=== PATIENT | male | born 1965 | race Caucasian/White ===

== ENCOUNTER 2017-01-30 09:04 | Emergency (ER) | payer BC ==
[2017-01-30] MEDS ORDERED: Norflex 60 MG/2 ML IM ONE (09:21)
[2017-01-30] MEDS ORDERED: TORAdol 30 mg Injection IM ONE (09:21)
[2017-01-30] MEDS ORDERED: Norflex 60 MG/2 ML ONE (09:24)
[2017-01-30] MEDS ORDERED: TORAdol 30 mg Injection ONE (09:24)
--- NOTE | 2017-01-30 09:25 | ERPHSYRPT ---
- History of Present Illness Time Seen by Provider: 01/30/17 09:12 Source: patient, family Physician History: CC: back pain Hx: 51 y/o patient of Dr Berny Bermudez. He has chronic back pain. He used to see Dr Olson and was on medication but he stopped going there recently. He sees a chiropracter. Last week he moved [facility] and had exacerbation of chronic low back pain. No N/T/W. No fever. No abd pain. No hematuria. No urinary complaints. The pain is severe. Not better with tizanidine or chiropracter. Better with lying flat on the floor. Timing/Duration: week(s) (1) Back Pain Location: lumbar spine Severity of Pain-Max: severe Severity of Pain-Current: severe Allergies/Adverse Reactions: sulfamethoxazole [From Bactrim] Allergy (Intermediate, Verified 01/13/17 16:23) Rash trimethoprim [From Bactrim] Allergy (Intermediate, Verified 01/13/17 16:23) Rash Home Medications: Hydrocodone/APAP 10/325 mg [[place] 10/325 MG Tablet] 1 tab PO Q4HPRN PRN [History] Methylphenidate HCl [Ritalin] 10 mg PO BID 11/25/15 [History] Ropinirole HCl [Requip] 1 mg PO DINNER 11/25/15 [History] Aripiprazole 10 mg [Abilify 10 MG] 10 mg PO DAILY 01/13/17 [History] Fenofibrate,Micronized 145 mg* [Tricor 145 MG] 145 mg PO DAILY 01/13/17 [ History] Lamotrigine 100 mg [lamICTAL 100MG TABLET] 100 mg PO BID 01/13/17 [History ] Lisinopril 20 mg [Zestril 20 MG] 20 mg PO BID 01/13/17 [History] Loratadine 10 mg [Claritin 10 mg] 10 mg PO DAILY 01/13/17 [History] Metoprolol Tartrate 25 mg [Lopressor 25MG Tab] 25 mg PO BID 01/13/17 [ History] Prednisone 10 mg [Deltasone 10 mg] 10 mg PO DAILY PRN PRN 01/13/17 [ History] Tamsulosin HCl 0.4 mg [Flomax 0.4 MG] 0.4 mg PO DAILY 01/13/17 [History] Tizanidine HCl 4 mg PO Q6H PRN PRN 01/13/17 [History] Venlafaxine HCl ER 75 mg [Effexor XR 75 MG] 75 mg PO DAILY 01/13/17 [ History] Hx Tetanus, Diphtheria Vaccination/Date Given: Yes Hx Influenza Vaccination/Date Given: No Hx Pneumococcal Vaccination/Date Given: No - Review of Systems Constitutional: No Fever, No Chills Eyes: No Symptoms Ears, Nose, & Throat: No Symptoms Respiratory: No Cough, No Dyspnea Cardiac: No Chest Pain Abdominal/Gastrointestinal: No Abdominal Pain, No Nausea, No Vomiting Genitourinary Symptoms: No Dysuria, No Hematuria Musculoskeletal: Back Pain, Injury (lifting drywall), No Neck Pain Skin: No Rash Neurological: No Focal Weakness, No Headache, No Parasthesia All Other Systems: Reviewed and Negative - Past Medical History Pertinent Past Medical History: Yes Neurological History: No Pertinent History ENT History: No Pertinent History Cardiac History: High Cholesterol, Hypertension Respiratory History: No Pertinent History Endocrine Medical History: No Pertinent History Musculoskeletal History: Arthritis GI Medical History: Irritable Bowel History: No Pertinent History Psycho-Social History: No Pertinent History Male Reproductive Disorders: No Pertinent History Other Medical History: AMPUTATION OF LEFT FINGERS, C5 fx with C4,5,6 bone graph. - Past Surgical History Past Surgical History: Yes Neuro Surgical History: No Pertinent History Cardiac: No Pertinent History Respiratory: No Pertinent History Gastrointestinal: Cholecystectomy, Hernia Repair Genitourinary: No Pertinent History Musculoskeletal: Amputation, Orthopedic Surgery Male Surgical History: No Pertinent History Other Surgical History: neck surgery 1985 and 2000 C 4,5,6 bone graph, T1 bone shaving. Left finger amputation with mulitple skin graphs from left thigh to hand. - Social History Smoking Status: Never smoker Exposure to second hand smoke: No Drug Use: none Patient Lives Alone: No - Nursing Vital Signs Nursing Vital Signs: Pain Scale Pain Intensity 10 - Physical Exam General Appearance: alert Eye Exam: PERRL/EOMI Ears, Nose, Throat Exam: normal ENT inspection, moist mucous membranes Neck Exam: normal inspection, non-tender, supple Respiratory Exam: normal breath sounds, lungs clear Cardiovascular Exam: regular rate/rhythm Gastrointestinal Exam: soft, No tenderness, No distention, No mass, No guarding Male Genetalia Exam: normal genitalia Back Exam: normal inspection, No vertebral tenderness Extremity Exam: normal inspection, normal range of motion Neurologic Exam: alert, oriented x 3, cooperative, cafeteria supervisor II-XII nml as tested, sensation nml, No motor deficits Skin Exam: warm, dry, No rash - Course Nursing assessment & vital signs reviewed: Yes Ordered Tests: Medication Summary Discontinued Medications Generic Name Dose Route Start Last Admin Trade Name Daniel PRN Reason Stop Dose Admin Ketorolac Tromethamine 60 mg 01/30/17 09:21 01/30/17 09:27 Toradol 30 Mg Injection IM 01/30/17 09:22 60 mg STAT ONE Administration Ketorolac Tromethamine Confirm 01/30/17 09:24 Toradol 30 Mg Injection Administered 01/30/17 09:25 Dose 60 mg .ROUTE .STK-MED ONE Orphenadrine Citrate 60 mg 01/30/17 09:21 01/30/17 09:27 Norflex 60 Mg/2 Ml IM 01/30/17 09:22 60 mg STAT ONE Administration Orphenadrine Citrate Confirm 01/30/17 09:24 Norflex 60 Mg/2 Ml Administered 01/30/17 09:25 Dose 60 mg .ROUTE .STK-MED ONE - Progress Progress Note: 01/30/17 09:25 Explained plan. Will give toradol and norflex. Advised he see dR Bermudez to discuss plan for chronic pain. 01/30/17 09:40 Pt was given meds. came out and she made appt to see Dr Bermudez in 10 minutes and pt is ready to go. Will release. Counseled pt/family regarding: diagnosis, need for follow-up - Departure Time of Disposition: 09:40 Departure Disposition: Home Clinical Impression: Acute exacerbation of chronic low back pain Condition: Stable Critical Care Time: No Referrals: ABBY BERMUDEZ [Primary Care Provider] - Instructions: Low Back Pain Additional Instructions: BACK INJURY 1. May apply moist heat frequently for relief of pain. Take care not to burn the skin. Do not use heat for more than 30 minutes at a time. 2. Try to sleep on a firm bed, flat on your back. 3. If no improvement is noticed in 2-3 days, follow up with your family physician. 4. If you notice any numbness, tingling, weakness, or problems with your bowel or bladder, you should call your family physician or return to the emergency department. No driving today. Go directly to Dr Bermudez office.
[2017-01-30 09:48] VITALS: BP 141/83; PULSE 86; O2SAT 97
== END 2017-01-30 09:52 | disposition home or self-care (01) ==
LOC: ED 09:04
DX: M54.5 Low back pain (principal); G89.29 Other chronic pain; Z79.891 Long term (current) use of opiate analgesic; Z79.899 Other long term (current) drug therapy; E78.00 Pure hypercholesterolemia, unspecified; I10 Essential (primary) hypertension
CPT/HCPCS: 96372; 99284; J1885; J2360

== ENCOUNTER 2020-06-08 11:51 | Emergency (ER) | payer BC ==
[2020-06-08] MEDS ORDERED: Sodium Chloride 0.9% 1000 ML 1,000 ML IV STA (11:59)
[2020-06-08] MEDS ORDERED: TORAdol 30 mg Injection IV ONE (12:00)
[2020-06-08] MEDS ORDERED: Sodium Chloride 0.9% 1000 ML 1,000 ML ONE (12:01)
[2020-06-08] MEDS ORDERED: TORAdol 30 mg Injection ONE (12:01)
[2020-06-08 12:03] VITALS: O2SAT 95
[2020-06-08] MEDS ORDERED: Zofran 4 MG/2 ML VIAL ONE (12:33)
[2020-06-08] MEDS ORDERED: Hydromorphone 1 mg/ml Injection IV ONE ×3 (12:33→13:40)
[2020-06-08] MEDS ORDERED: Hydromorphone 1 mg/ml Injection ONE ×3 (12:34→13:35)
[2020-06-08] MEDS ORDERED: Zofran 4 MG/2 ML VIAL IV ONE (12:34)
--- NOTE | 2020-06-08 12:42 | XRAY ---
Indication: Pain following injury. Comparison: None 2 view right forearm demonstrates mid radius shaft fracture with bayonet apposition/alignment, nondisplaced comminuted distal radial shaft fracture, and comminuted displaced ulnar shaft fracture with soft tissue swelling. Elsewhere moderate/advanced wrist degenerative changes and widened scapholunate interval.
[2020-06-08 13:21] VITALS: BP 145/92; PULSE 85
--- NOTE | 2020-06-08 13:44 | ERPHSYRPT ---
- History of Present Illness Source: patient Exam Limitations: no limitations Patient Subjective Stated Complaint: right arm injury Triage Nursing Assessment: Patient brought back to ED via w/c and transferred to bed with assist of 1. Patient A+O X 3. Patien'ts skin pale, diaphorectic. Patient states he was standing on the ground cutting a tree when a limb fell down and hit his right arm. Patient has deformity noted to right lower arm. Patient complains of constant sharp pain 10/10. Physician History: 54 yo wm w tree limb vs R forearm. Pt has an obvious deformity and pain is a 10. Upon arrival, he has good distal capillary return/sensation, and radial pulse. He denies other injuries, including LOC/head trauma. Occurred: just prior to arrival Method of Injury: direct blow (Tree limb vs R forearm) Quality: constant Severity of Pain-Max: severe Severity of Pain-Current: severe Extremities Pain Location: forearm: right Modifying Factors: Improves With: movement Associated Symptoms: none Allergies/Adverse Reactions: sulfamethoxazole [From Bactrim] Allergy (Intermediate, Verified 06/08/20 15:21) Rash trimethoprim [From Bactrim] Allergy (Intermediate, Verified 06/08/20 15:21) Rash Home Medications: Hydrocodone/APAP 10/325 mg [[place] 10/325 MG TableT] 1 tab PO Q4HPRN PRN 11/25/15 [History] Methylphenidate HCl [Ritalin] 10 mg PO BID 11/25/15 [History] Ropinirole HCl [Requip] 1 mg PO DINNER 11/25/15 [History] Aripiprazole 10 mg [Abilify 10 MG] 10 mg PO DAILY 01/13/17 [History] Fenofibrate,Micronized 145 mg* [Tricor 145 MG] 145 mg PO DAILY 01/13/17 [History] Lamotrigine 100 mg [lamICTAL 100MG TABLET] 100 mg PO BID 01/13/17 [History] Lisinopril 20 mg [Zestril 20 MG] 20 mg PO BID 01/13/17 [History] Loratadine 10 mg [Claritin 10 mg] 10 mg PO DAILY 01/13/17 [History] Metoprolol Tartrate 25 mg [Lopressor 25MG Tab] 25 mg PO BID 01/13/17 [History] Prednisone 10 mg [Deltasone 10 mg] 10 mg PO DAILY PRN PRN 01/13/17 [History] Tamsulosin HCl 0.4 mg [Flomax 0.4 MG] 0.4 mg PO DAILY 01/13/17 [History] Tizanidine HCl 4 mg PO Q6H PRN PRN 01/13/17 [History] Venlafaxine HCl ER 75 mg [Effexor XR 75 MG] 75 mg PO DAILY 01/13/17 [History] Hx Influenza Vaccination/Date Given: No Hx Pneumococcal Vaccination/Date Given: No Immunizations Up to Date: Yes Travel Risk - International Travel Have you traveled outside of the country in past 3 weeks: No - Coronavirus Screening Are you exhibiting any of the following symptoms?: No Close contact with a COVID-19 positive Pt in past 14-21 Days: No - Review of Systems Constitutional: No Symptoms Eyes: No Symptoms Ears, Nose, & Throat: No Symptoms Respiratory: No Symptoms Cardiac: No Symptoms Abdominal/Gastrointestinal: No Symptoms Genitourinary Symptoms: No Symptoms Musculoskeletal: Injury Neurological: No Symptoms Psychological: No Symptoms, Hallucinations Endocrine: No Symptoms Hematologic/Lymphatic: No Symptoms Immunological/Allergic: No Symptoms - Past Medical History Neurological History: No Pertinent History ENT History: No Pertinent History Cardiac History: High Cholesterol, Hypertension Respiratory History: No Pertinent History Endocrine Medical History: No Pertinent History Musculoskeletal History: No Pertinent History GI Medical History: No Pertinent History History: No Pertinent History Psycho-Social History: No Pertinent History Male Reproductive Disorders: No Pertinent History - Past Surgical History Past Surgical History: Yes Neuro Surgical History: No Pertinent History Cardiac: No Pertinent History Respiratory: No Pertinent History Gastrointestinal: No Pertinent History Genitourinary: No Pertinent History Musculoskeletal: No Pertinent History Male Surgical History: No Pertinent History - Social History Smoking Status: Never smoker Exposure to second hand smoke: No Drug Use: none Patient Lives Alone: No Significant Family History: no pertinent family hx - Nursing Vital Signs Nursing Vital Signs: Initial Vital Signs Temperature 98.0 F 06/08/20 11:54 Pulse Rate 58 L 06/08/20 11:54 Respiratory Rate 18 06/08/20 11:54 Blood Pressure 103/81 06/08/20 11:54 O2 Sat by Pulse Oximetry 95 06/08/20 11:54 Pain Scale Pain Intensity 0 - Physical Exam General Appearance: no apparent distress (Pt in pain) Eyes, Ears, Nose, Throat Exam: normal ENT inspection, TMs normal, pharynx normal, moist mucous membranes Neck Exam: normal inspection (C-spine nttp) Cardiovascular/Respiratory Exam: chest non-tender, normal breath sounds, regular rate/rhythm, heart sounds normal Abdominal Exam: non-tender, soft, no organomegaly, No tenderness Back Exam: normal inspection (No T or L-spine pain) Shoulder Exam: normal inspection Elbow/Forearm Exam: deformity (R forearm deformity/edema/Marked TTP/Good radial pulse, distal sensation, and capillary return) Hand Exam: normal inspection Neuro/Tendon Exam: normal sensation, normal motor functions, normal tendon functions, responds to pain, no evidence tendon injury Mental Status Exam: alert, oriented x 3, cooperative Skin Exam: normal color SpO2 Interpretation: normal SpO2: 95 O2 Delivery: Room Air - Course EKG Interpreted by Me: RATE (NSR/R91/Normal QT-QTc/No acute changes) - Radiology Exams Forearm X-ray Interpretation: Interpreted by me (Comminuted mid-shaft radius-ulnar fx), Discussed w/ radiologist Ordered Tests: Active Orders 24 hr Category Date Time Status EKG-ER Only STAT Care 06/08/20 11:57 Completed WRIST (2 VIEW) Stat Exams 06/08/20 12:26 Completed Medication Summary Discontinued Medications Generic Name Dose Route Start Last Admin Trade Name Daniel PRN Reason Stop Dose Admin Hydromorphone HCl 1 mg 06/08/20 12:33 06/08/20 12:35 Hydromorphone 1 Mg/Ml Injection IV 06/08/20 12:34 1 mg STAT ONE Administration Hydromorphone HCl Confirm 06/08/20 12:34 Hydromorphone 1 Mg/Ml Injection Administered 06/08/20 12:35 Dose 1 mg .ROUTE .STK-MED ONE Hydromorphone HCl 1 mg 06/08/20 12:57 06/08/20 13:02 Hydromorphone 1 Mg/Ml Injection IV 06/08/20 12:58 1 mg STAT ONE Administration Hydromorphone HCl Confirm 06/08/20 13:00 Hydromorphone 1 Mg/Ml Injection Administered 06/08/20 13:01 Dose 1 mg .ROUTE .STK-MED ONE Hydromorphone HCl Confirm 06/08/20 13:35 Hydromorphone 1 Mg/Ml Injection Administered 06/08/20 13:36 Dose 1 mg .ROUTE .STK-MED ONE Hydromorphone HCl 1 mg 06/08/20 13:40 06/08/20 13:46 Hydromorphone 1 Mg/Ml Injection IV 06/08/20 13:41 1 mg STAT ONE Administration Sodium Chloride 1,000 mls @ 999 mls/hr 06/08/20 11:59 06/08/20 13:11 Sodium Chloride 0.9% 1000 Ml IV 06/08/20 12:59 Infused .Q1H1M STA Infusion Sodium Chloride Confirm 06/08/20 12:01 Sodium Chloride 0.9% 1000 Ml Administered 06/08/20 12:02 Dose 1,000 mls @ ud .ROUTE .STK-MED ONE Ketorolac Tromethamine 30 mg 06/08/20 12:00 06/08/20 12:03 Toradol 30 Mg Injection IV 06/08/20 12:01 30 mg STAT ONE Administration Ketorolac Tromethamine Confirm 06/08/20 12:01 Toradol 30 Mg Injection Administered 06/08/20 12:02 Dose 30 mg .ROUTE .STK-MED ONE Ondansetron HCl 4 mg 06/08/20 12:34 06/08/20 12:35 Zofran 4 Mg/2 Ml Vial IV 06/08/20 12:35 4 mg STAT ONE Administration Ondansetron HCl Confirm 06/08/20 12:33 Zofran 4 Mg/2 Ml Vial Administered 06/08/20 12:34 Dose 4 mg .ROUTE .STK-MED ONE - Progress Progress: improved Progress Note: 06/08/20 14:06 1L NS bolus 30mg IV Toradol Img IV Dilaudid x3 R forearm splinted per physician w ventral orthoglass splint/NVI post splint Spoke w Dr. Najera, want to see pt 8:00AM at [facility] 06/09/20, NPO after midnight Counseled pt/family regarding: need for follow-up, rad results - Departure Departure Disposition: Home Clinical Impression: Radius and ulna distal fracture Condition: Stable Critical Care Time: No Referrals: AMA MORAN [Primary Care Provider] - Instructions: Fracture (DC) Additional Instructions: Dr. Najera 8:00AM 06/09/20, nothing to eat-drink after midnight Prescriptions: Hydrocodone/Acetaminophen [Hydrocodone-Acetamin 10-325 mg^^^] 1 each PO Q4HPRN PRN #10 tablet MDD 4 tabs PRN Reason: Pain
== END 2020-06-08 14:28 | disposition home or self-care (01) ==
LOC: ED 11:51 → MERGE 11:51 → ED 14:28
DX: S52.601A Unspecified fracture of lower end of right ulna, initial encounter for closed fracture (principal); W20.8XXA Other cause of strike by thrown, projected or falling object, initial encounter; Y93.89 Activity, other specified; Y92.9 Unspecified place or not applicable; M79.601 Pain in right arm; Z79.899 Other long term (current) drug therapy
CPT/HCPCS: 73100; 93005; 96374; 96375; 96376; 99284; J1170; J1885; J2405

== ENCOUNTER 2021-03-04 18:06 | Observation (INO) | payer BC ==
--- NOTE | 2021-03-04 18:11 | ERPHSYRPT ---
- History of Present Illness Source: patient Timing/Duration: day(s) (5) Fever Severity: moderate Associated Symptoms: cough, muscle aches, weakness Hx Tetanus, Diphtheria Vaccination/Date Given: Yes Hx Influenza Vaccination/Date Given: No Hx Pneumococcal Vaccination/Date Given: No <COY DUKES - Last Filed: 03/04/21 19:10> <SCAR HENDERSON - Last Filed: 03/04/21 21:59> - History of Present Illness Time Seen by Provider: 03/04/21 18:11 Physician History: 55 y/o white male with 5 day h/o nasal congestion, cough and now fever. body aches and headache also present. denies cp no sob. denies abd pain, denies n/v/d. grandchild with similar sx (COY DUKES) Allergies/Adverse Reactions: sulfamethoxazole [From Bactrim] Allergy (Intermediate, Verified 03/04/21 18:27) Rash trimethoprim [From Bactrim] Allergy (Intermediate, Verified 03/04/21 18:27) Rash Home Medications: Hydrocodone/APAP 10/325 mg [Tekoa 10/325 MG TableT] 1 tab PO Q4HPRN PRN 11/25/15 [History] Methylphenidate HCl [Ritalin] 10 mg PO BID 11/25/15 [History] Ropinirole HCl [Requip] 1 mg PO DINNER 11/25/15 [History] Aripiprazole 10 mg [Abilify 10 MG] 10 mg PO DAILY 01/13/17 [History] Fenofibrate,Micronized 145 mg* [Tricor 145 MG] 145 mg PO DAILY 01/13/17 [History] Lamotrigine 100 mg [lamICTAL 100MG TABLET] 100 mg PO BID 01/13/17 [Hi story] Lisinopril 20 mg [Zestril 20 MG] 20 mg PO BID 01/13/17 [History] Loratadine 10 mg [Claritin 10 mg] 10 mg PO DAILY 01/13/17 [History] Metoprolol Tartrate 25 mg [Lopressor 25MG Tab] 25 mg PO BID 01/13/17 [History] Prednisone 10 mg [Deltasone 10 mg] 10 mg PO DAILY PRN PRN 01/13/17 [History] Tamsulosin HCl 0.4 mg [Flomax 0.4 MG] 0.4 mg PO DAILY 01/13/17 [History] Tizanidine HCl 4 mg PO Q6H PRN PRN 01/13/17 [History] Venlafaxine HCl ER 75 mg [Effexor XR 75 MG] 75 mg PO DAILY 01/13/17 [History] Travel Risk - Coronavirus Screening Are you exhibiting any of the following symptoms?: Yes Symptoms: Fever, Cough: New Onset, Headaches/Body Aches/Fatigue Close contact with a COVID-19 positive Pt in past 14-21 Days: No <COY DUKES - Last Filed: 03/04/21 19:10> - Review of Systems Constitutional: Fever, Weakness Eyes: No Symptoms Ears, Nose, & Throat: Nose Congestion, Nose Discharge, Throat Pain Respiratory: Cough Cardiac: No Symptoms, No Chest Pain Abdominal/Gastrointestinal: No Symptoms Genitourinary Symptoms: No Symptoms Musculoskeletal: No Symptoms Skin: No Symptoms Neurological: No Symptoms Psychological: No Symptoms Endocrine: No Symptoms Hematologic/Lymphatic: No Symptoms Immunological/Allergic: No Symptoms All Other Systems: Reviewed and Negative <COY DUKES - Last Filed: 03/04/21 19:10> - Past Medical History Pertinent Past Medical History: Yes Neurological History: No Pertinent History ENT History: No Pertinent History Cardiac History: High Cholesterol, Hypertension Respiratory History: No Pertinent History Endocrine Medical History: No Pertinent History Musculoskeletal History: No Pertinent History, Arthritis, Degenerative Disk Disease GI Medical History: No Pertinent History, Irritable Bowel History: No Pertinent History Psycho-Social History: No Pertinent History Male Reproductive Disorders: No Pertinent History Other Medical History: AMPUTATION OF LEFT FINGERS, C5 fx with C4,5,6 bone graph. - Past Surgical History Past Surgical History: Yes Neuro Surgical History: No Pertinent History Cardiac: No Pertinent History Respiratory: No Pertinent History Gastrointestinal: No Pertinent History, Cholecystectomy, Hernia Repair Genitourinary: No Pertinent History Musculoskeletal: No Pertinent History, Orthopedic Surgery, Amputation Male Surgical History: No Pertinent History Other Surgical History: neck surgery 1985 and 2000 C 4,5,6 bone graph, T1 bone shaving. Left finger amputation with mulitple skin graphs from left thigh to hand. - Social History Smoking Status: Never smoker Exposure to second hand smoke: No Drug Use: none Patient Lives Alone: No Significant Family History: no pertinent family hx <COY DUKES CathleenCierra - Last Filed: 03/04/21 19:10> - Physical Exam General Appearance: no apparent distress, alert, anxiety, obese Eye Exam: PERRL/EOMI, eyes nml inspection ENT Exam: normal ENT inspection, pharynx normal, nasal congestion Neck Exam: normal inspection, non-tender, supple, full range of motion Respiratory Exam: normal breath sounds, chest non-tender, lungs clear, no re spiratory distress, no accessory muscle use, No respiratory distress Cardiovascular/Chest Exam: tachycardia Gastrointestinal/Abdominal Exam: soft, non tender, no distention, no mass, no guarding, no ecchymosis, no organomegaly, no pulsatile mass, normal bowel sounds Rectal Exam: not done Extremity Exam: non-tender, normal range of motion, normal inspection Neurologic Exam: alert, oriented x 3, cooperative, 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, normal mood/affect, nml cerebellar function, nml station & gait, sensation nml Skin Exam: normal color, warm, dry Lymphatic: No adenopathy SpO2 Interpretation: normal O2 Delivery: Room Air <COY DUKES - Last Filed: 03/04/21 19:10> - Nursing Vital Signs Nursing Vital Signs: Initial Vital Signs Temperature 102.8 F 03/04/21 18:17 Pulse Rate 124 H 03/04/21 18:17 Blood Pressure 148/90 03/04/21 18:17 O2 Sat by Pulse Oximetry 97 03/04/21 18:17 Pain Scale Pain Intensity 2 - Course Nursing assessment & vital signs reviewed: Yes <COY DUKES - Last Filed: 03/04/21 19:10> - Course EKG Interpreted by Me: RATE ([id number]), Sinus Tach, NORMAL AXIS, prolonged QT interv al <SCAR HENDERSON - Last Filed: 03/04/21 21:59> Ordered Tests: Active Orders 24 hr Category Date Time Status Engraver Pantograph STAT Care 03/04/21 18:42 Active EKG-ER Only STAT Care 03/04/21 18:41 Active IV Insertion STAT Care 03/04/21 18:41 Active Isolation, Initiate & Maintain STAT Care 03/04/21 18:42 Active Pulse Oximetry (ED) STAT Care 03/04/21 18:41 Active CHEST 1 VIEW (PORTABLE) Stat Exams 03/04/21 18:42 Taken BLOOD CULTURE Stat Lab 03/04/21 19:00 Received CBC W DIFF Stat Lab 03/04/21 19:10 Completed CMP Stat Lab 03/04/21 19:10 Completed D-DIMER QUANTITATIVE Stat Lab 03/04/21 19:10 Completed Ferritin Stat Lab 03/04/21 19:10 Completed INFLUENZA A+B DEVANG Stat Lab 03/04/21 19:00 Completed LDH-LACTATE DEHYDROGENASE Stat Lab 03/04/21 19:10 Completed Lactic Acid Stat Lab 03/04/21 19:24 Completed Manual Differential NC Stat Lab 03/04/21 19:10 Completed [place] Screen Stat Lab 03/04/21 19:10 Completed TROPONIN Q3H Lab 03/04/21 18:45 Completed TROPONIN Q3H Lab 03/04/21 21:45 Ordered TROPONIN Q3H Lab 03/05/21 00:45 Ordered TROPONIN Q3H Lab 03/05/21 03:45 Ordered TROPONIN Q3H Lab 03/05/21 06:45 Ordered Transfer Order Routine Transfer 03/04/21 Ordered Medication Summary Generic Name Dose Route Start Last Admin Trade Name Freq PRN Reason Stop Dose Admin Ceftriaxone Sodium/Dextrose 2 g in 50 mls @ 100 mls/hr 03/04/21 21:45 03/04/21 21:52 Rocephin 2 Gm-D5w 50ml Bag IV 03/04/21 22:14 100 ml/hr STAT ONE 100 mls/hr Administration Azithromycin 500 mg in 250 mls @ 250 mls/hr 03/05/21 10:00 Zithromax 500 Mg/ 250 Ml Nacl Premix IV 04/04/21 09:59 [id number] JENNIFER Remdesivir 200 mg/ Sodium 250 mls @ 125 mls/hr 03/04/21 21:56 Chloride IV 03/04/21 23:55 ONCE ONE Discontinued Medications Generic Name Dose Route Start Last Admin Trade Name Freq PRN Reason Stop Dose Admin Acetaminophen 650 mg 03/04/21 20:01 03/04/21 20:05 Acetaminophen 325 Mg Tablet PO 03/04/21 20:02 650 mg STAT STA Administration Acetaminophen Confirm 03/04/21 20:04 Acetaminophen 325 Mg Tablet Administered 03/04/21 20:05 Dose 650 mg .ROUTE .STK-MED ONE Hydrocodone Bitart/Acetaminophen 15 ml 03/04/21 18:44 03/04/21 19:48 Hydrocodone/Acetaminophen 5 Ml Udcup PO 03/04/21 18:45 15 ml STAT STA Administration Hydrocodone Bitart/Acetaminophen Confirm 03/04/21 19:41 Hydrocodone/Acetaminophen 5 Ml Udcup Administered 03/04/21 19:42 Dose 15 ml .ROUTE .STK-MED ONE Methylprednisolone Sodium 0 mg 03/04/21 18:41 03/04/21 19:47 Succinate 125 mg/ Sterile IV 03/04/21 18:42 125 mg Water 2 ml STAT ONE Administration Sodium Chloride 1,000 mls @ 999 mls/hr 03/04/21 18:41 03/04/21 21:23 Sodium Chloride 0.9% 1000 Ml IV 03/04/21 19:41 Infused .Q1H1M STA Infusion Sodium Chloride Confirm 03/04/21 19:41 Sodium Chloride 0.9% 1000 Ml Administered 03/04/21 19:42 Dose 1,000 mls @ ud .ROUTE .STK-MED ONE Ceftriaxone Sodium/Dextrose Confirm 03/04/21 21:49 Rocephin 2 Gm-D5w 50ml Bag Administered 03/04/21 21:50 Dose 2 g in 50 mls @ ud IV .STK-MED ONE Methylprednisolone Sodium Succinate Confirm 03/04/21 19:41 Methylprednis Sod Succ 125 Mg/2 Ml Vial Administered 03/04/21 19:42 Dose 125 mg .ROUTE .STK-MED ONE Potassium Chloride 40 meq 03/04/21 20:15 03/04/21 20:30 Potassium Chloride 10 Meq Tablet PO 03/04/21 20:16 40 meq STAT ONE Administration Potassium Chloride Confirm 03/04/21 20:27 Potassium Chloride 10 Meq Tablet Administered 03/04/21 20:28 Dose 40 meq PO .STK-MED ONE Lab/Rad Data: Laboratory Result Diagrams 03/04/21 19:10 03/04/21 19:10 Laboratory Results 03/04/21 03/04/21 03/04/21 Range/Units 19:57 19:24 19:10 WBC (4.0-10.5) K/mm3 RBC (4.1-5.6) M/mm3 Hgb (12.5-18.0) gm/dl Hct (42-50) % MCV (78-100) fl MCH (26-32) pg MCHC (32-36) g/dl RDW (11.5-14.0) % Plt Count (150-450) K/mm3 MPV (7.5-11.0) fl D-Dimer (215-500) ng/mL Sodium (137-145) mmol/L Potassium (3.5-5.1) mmol/L Chloride (98-107) mmol/L Carbon Dioxide (22-30) mmol/L Anion Gap (5-15) MEQ/L BUN (9-20) mg/dL Creatinine (0.66-1.25) mg/dL Estimated GFR ML/MIN Glucose (74-106) mg/dL Lactic Acid 1.3 (0.4-2.0) Calcium (8.4-10.2) mg/dL Ferritin (17.9-464) ng/mL Total Bilirubin (0.2-1.3) mg/dL AST (17-59) U/L ALT (0-50) U/L Alkaline Phosphatase (38-126) U/L Lactate Dehydrogenase (120-246) U/L Troponin I (0.000-0.034) ng/mL Serum Total Protein (6.3-8.2) g/dL Albumin (3.5-5.0) g/dL Monoscreen NEGATIVE (Negative) Influenza Type A Ag NEGATIVE (NEGATIVE) Influenza Type B Ag NEGATIVE (NEGATIVE) RSV (PCR) NEGATIVE (Negative) SARS-CoV-2 (PCR) POSITIVE A (NEGATIVE) Group A Strep Antibody (NEGATIVE) 03/04/21 03/04/21 03/04/21 Range/Units 19:10 19:10 19:10 WBC (4.0-10.5) K/mm3 RBC (4.1-5.6) M/mm3 Hgb (12.5-18.0) gm/dl Hct (42-50) % MCV (78-100) fl MCH (26-32) pg MCHC (32-36) g/dl RDW (11.5-14.0) % Plt Count (150-450) K/mm3 MPV (7.5-11.0) fl D-Dimer 410 (215-500) ng/mL Sodium 137 (137-145) mmol/L Potassium 3.2 L (3.5-5.1) mmol/L Chloride 103 (98-107) mmol/L Carbon Dioxide 25 (22-30) mmol/L Anion Gap 11.3 (5-15) MEQ/L BUN 10 (9-20) mg/dL Creatinine 0.97 (0.66-1.25) mg/dL Estimated GFR > 60.0 ML/MIN Glucose 136 H (74-106) mg/dL Lactic Acid (0.4-2.0) Calcium 8.1 L (8.4-10.2) mg/dL Ferritin 84.2 (17.9-464) ng/mL Total Bilirubin 0.30 (0.2-1.3) mg/dL AST 50 (17-59) U/L ALT 32 (0-50) U/L Alkaline Phosphatase 43 (38-126) U/L Lactate Dehydrogenase 255 H (120-246) U/L Troponin I (0.000-0.034) ng/mL Serum Total Protein 6.0 L (6.3-8.2) g/dL Albumin 3.5 (3.5-5.0) g/dL Monoscreen (Negative) Influenza Type A Ag (NEGATIVE) Influenza Type B Ag (NEGATIVE) RSV (PCR) (Negative) SARS-CoV-2 (PCR) (NEGATIVE) Group A Strep Antibody (NEGATIVE) 03/04/21 03/04/21 03/04/21 Range/Units 19:10 19:00 19:00 WBC 3.9 L (4.0-10.5) K/mm3 RBC 4.21 (4.1-5.6) M/mm3 Hgb 13.3 (12.5-18.0) gm/dl Hct 40.1 L (42-50) % MCV 95.2 (78-100) fl MCH 31.6 (26-32) pg MCHC 33.2 (32-36) g/dl RDW 14.3 H (11.5-14.0) % Plt Count 228 (150-450) K/mm3 MPV 9.5 (7.5-11.0) fl D-Dimer (215-500) ng/mL Sodium (137-145) mmol/L Potassium (3.5-5.1) mmol/L Chloride (98-107) mmol/L Carbon Dioxide (22-30) mmol/L Anion Gap (5-15) MEQ/L BUN (9-20) mg/dL Creatinine (0.66-1.25) mg/dL Estimated GFR ML/MIN Glucose (74-106) mg/dL Lactic Acid (0.4-2.0) Calcium (8.4-10.2) mg/dL Ferritin (17.9-464) ng/mL Total Bilirubin (0.2-1.3) mg/dL AST (17-59) U/L ALT (0-50) U/L Alkaline Phosphatase (38-126) U/L Lactate Dehydrogenase (120-246) U/L Troponin I (0.000-0.034) ng/mL Serum Total Protein (6.3-8.2) g/dL Albumin (3.5-5.0) g/dL Monoscreen (Negative) Influenza Type A Ag NEGATIVE (NEGATIVE) Influenza Type B Ag NEGATIVE (NEGATIVE) RSV (PCR) (Negative) SARS-CoV-2 (PCR) (NEGATIVE) Group A Strep Antibody NOT DETECTED (NEGATIVE) 03/04/21 Range/Units 18:45 WBC (4.0-10.5) K/mm3 RBC (4.1-5.6) M/mm3 Hgb (12.5-18.0) gm/dl Hct (42-50) % MCV (78-100) fl MCH (26-32) pg MCHC (32-36) g/dl RDW (11.5-14.0) % Plt Count (150-450) K/mm3 MPV (7.5-11.0) fl D-Dimer (215-500) ng/mL Sodium (137-145) mmol/L Potassium (3.5-5.1) mmol/L Chloride (98-107) mmol/L Carbon Dioxide (22-30) mmol/L Anion Gap (5-15) MEQ/L BUN (9-20) mg/dL Creatinine (0.66-1.25) mg/dL Estimated GFR ML/MIN Glucose (74-106) mg/dL Lactic Acid (0.4-2.0) Calcium (8.4-10.2) mg/dL Ferritin (17.9-464) ng/mL Total Bilirubin (0.2-1.3) mg/dL AST (17-59) U/L ALT (0-50) U/L Alkaline Phosphatase (38-126) U/L Lactate Dehydrogenase (120-246) U/L Troponin I 0.031 (0.000-0.034) ng/mL Serum Total Protein (6.3-8.2) g/dL Albumin (3.5-5.0) g/dL Monoscreen (Negative) Influenza Type A Ag (NEGATIVE) Influenza Type B Ag (NEGATIVE) RSV (PCR) (Negative) SARS-CoV-2 (PCR) (NEGATIVE) Group A Strep Antibody (NEGATIVE) - Progress Counseled pt/family regarding: lab results, diagnosis, need for follow-up, rad results <COY DUKES - Last Filed: 03/04/21 19:10> - Progress Progress: improved <SCAR HENDERSON - Last Filed: 03/04/21 21:59> - Progress Progress Note: 03/04/21 18:[address] henderson at shift change (COY DUKES) Patient endorsed to Dr. Henderson at approximately [address] Henderson advised to follow- up on pending studies. Work-up reveals COVID-19 positivity. Patient also has Covid pneumonia. Patient is hypoxic. Patient continues to feel weak. Hypokalemia and hypocalcemia was identified on work-up. Patient received replacement potassium. IV fluids infused. Steroids administered. Pain well controlled at this time after Tekoa administration. Patient feeling weak. Patient requires oxygen at this time. Remdesivir ordered. Case discussed with Dr. Baldwin who accepts admission to observation. Plan of care discussed with patient. He agrees to admission at [facility] for further evaluation and treatment. He voices no other complaints or concerns at this time. Portions of this note were created with voice recognition technology. There may be grammatical, spelling, punctuation or sound alike errors 03/04/21 21:57 (SCAR HENDERSON) - Departure Departure Disposition: Home Critical Care Time: No <COY DUKES - Last Filed: 03/04/21 19:10> <SCAR HENDERSON - Last Filed: 12/16/21 21:59> - Departure Clinical Impression: Viral illness, Leukopenia, Hypokalemia, Hypocalcemia, Elevated LDH, Tachycardia, Bilateral multifocal pulmonary opacities, SARS-CoV-2 positive, Hypoxia, Pneumonia due to COVID-19 virus Condition: Stable Referrals: AMA MORAN, LEGAL BILLING CLERK [Primary Care Provider] - Follow up/PCP as directed
[2021-03-04] MEDS ORDERED: solu-MEDROL 125 MG, Sterile H2O 10 ml 2 ML IV ONE ×2 (18:41)
[2021-03-04] MEDS ORDERED: Sodium Chloride 0.9% 1000 ML 1,000 ML IV STA (18:41)
[2021-03-04] MEDS ORDERED: HYDROCODONE-ACETAMIN 2.5-108/5 ML SOLUTION PO STA (18:44)
[2021-03-04 19:29] LABS: Hematocrit 40.1 % (42-50); Hemoglobin 13.3 gm/dl (12.5-18.0); Mean Cell Volume 95.2 fl (78-100); Mean Corpuscular Hemoglobin 31.6 pg (26-32); Mean Corpuscular Hgb Concent. 33.2 g/dl (32-36); Mean Platelet Volume 9.5 fl (7.5-11.0); Platelet Count 228 K/mm3 (150-450); Red Blood Count 4.21 M/mm3 (4.1-5.6); Red Cell Distribution Width 14.3 % (11.5-14.0); White Blood Count 3.9 K/mm3 (4.0-10.5)
[2021-03-04] MEDS ORDERED: solu-MEDROL ONE (19:41)
[2021-03-04] MEDS ORDERED: HYDROCODONE-ACETAMIN 2.5-108/5 ML SOLUTION ONE (19:41)
[2021-03-04] MEDS ORDERED: Sodium Chloride 0.9% 1000 ML 1,000 ML ONE (19:41)
[2021-03-04 19:49] LABS: ALBUMIN 3.5 g/dL (3.5-5.0); BLOOD UREA NITROGEN 10 mg/dL (9-20); CHLORIDE 103 mmol/L (98-107); Calcium 8.1 mg/dL (8.4-10.2); Carbon Dioxide 25 mmol/L (22-30); Creatinine 1 0.97 mg/dL (0.66-1.25); EST GLOMERULAR FILTRATION RATE > 60.0 ML/MIN; Glucose 136 mg/dL (74-106); Potassium 3.2 mmol/L (3.5-5.1); SGOT/AST 50 U/L (17-59); SODIUM 137 mmol/L (137-145)
[2021-03-04 19:50] LABS: ALKALINE PHOSPHATASE 43 U/L (38-126); ANION GAP 11.3 MEQ/L (5-15); LDH-LACTATE DEHYDROGENASE 255 U/L (120-246); SGPT/ALT 32 U/L (0-50)
[2021-03-04 19:59] LABS: INFLUENZA A NEGATIVE (NEGATIVE); INFLUENZA B NEGATIVE (NEGATIVE)
[2021-03-04] MEDS ORDERED: TYLENOL 325 MG PO STA (20:01)
[2021-03-04] MEDS ORDERED: TYLENOL 325 MG ONE (20:04)
[2021-03-04] MEDS ORDERED: Klor Con 10 MEQ PO ONE ×2 (20:15→20:27)
[2021-03-04 20:43] LABS: INFLUENZA A NEGATIVE (NEGATIVE); INFLUENZA B NEGATIVE (NEGATIVE); RESPIRATORY SYNCTIAL VIRUS NEGATIVE (Negative)
[2021-03-04 20:49] LABS: SARS-CoV-2 Xpert Express POSITIVE (NEGATIVE)
[2021-03-04] MEDS ORDERED: ROCEPHIN 2 Gm-D5w 50ML BAG** 2 G/50 ML IVPB IV ONE ×2 (21:45→21:49)
[2021-03-04] MEDS ORDERED: REMDESIVIR 200 MG in Sodium Chloride 0.9% 250 ML 250 ML IV ONE (21:56)
[2021-03-04] MEDS ORDERED: Zithromax 500 MG/ 250 ML NaCl Premix 500 MG/250 ML IVPB IV ONE (22:10)
[2021-03-05] MEDS ORDERED: TYLENOL 325 MG PO PRN (01:45)
[2021-03-05 04:54] LABS: ALBUMIN 3.4 g/dL (3.5-5.0); ALKALINE PHOSPHATASE 46 U/L (38-126); ANION GAP 12.6 MEQ/L (5-15); BLOOD UREA NITROGEN 11 mg/dL (9-20); CHLORIDE 106 mmol/L (98-107); Calcium 7.9 mg/dL (8.4-10.2); Carbon Dioxide 25 mmol/L (22-30); Creatinine 1 0.85 mg/dL (0.66-1.25); EST GLOMERULAR FILTRATION RATE > 60.0 ML/MIN; Glucose 165 mg/dL (74-106); Potassium 3.9 mmol/L (3.5-5.1); SGOT/AST 56 U/L (17-59); SGPT/ALT 35 U/L (0-50); SODIUM 139 mmol/L (137-145); Total Protein 5.7 g/dL (6.3-8.2)
[2021-03-05 05:19] LABS: Absolute Neutrophil Ct (ANC) 3.55 (1.4-6.9); Basophil (Absolute #) 0.01 (0-0.4); Eosinophil (Absolute #) 0 (0-0.5); Hematocrit 44.6 % (42-50); Hemoglobin 14.8 gm/dl (12.5-18.0); Lymphocyte (Absolute #) 0.31 (1.0-4.6); Lymphocytes % 7.8 % (24.0-44.0); Mean Cell Volume 95.7 fl (78-100); Mean Corpuscular Hemoglobin 31.8 pg (26-32); Mean Corpuscular Hgb Concent. 33.2 g/dl (32-36); Mean Platelet Volume 9.8 fl (7.5-11.0); Monocyte (Absolute #) 0.13 (0.0-1.3); Monocytes % 3.3 % (0.0-12.0); Neutrophil % 88.6 % (36.0-66.0); Platelet Count 236 K/mm3 (150-450); Red Blood Count 4.66 M/mm3 (4.1-5.6); Red Cell Distribution Width 14.6 % (11.5-14.0)
[2021-03-05] MEDS ORDERED: Ativan 2 MG/1 ML VIAL IV PRN (05:30)
[2021-03-05] MEDS ORDERED: TYLENOL EXTRA STRENGTH 500 MG PO PRN (05:30)
[2021-03-05] MEDS ORDERED: Sodium Chloride 0.9% 1000 ML 1,000 ML IV SCH (05:30)
[2021-03-05] MEDS ORDERED: Ativan 1 MG PO PRN (05:30)
[2021-03-05] MEDS ORDERED: Zofran 4 MG/2 ML VIAL IV PRN (05:30)
[2021-03-05] MEDS ORDERED: HYDROCODONE-CHLORPHEN ER SUSP PO PRN (05:30)
[2021-03-05 08:48] VITALS: BP 128/102
--- NOTE | 2021-03-05 08:58 | XRAY ---
Indication: Fever and cough. Comparison: January 13, 2017. Portable chest demonstrates new mild diffuse bilateral airspace disease, right greater than left, without consolidation/large effusion. Heart not enlarged. Bony thorax intact again with mild degenerative changes.
[2021-03-05 09:28] VITALS: O2SAT 92
[2021-03-05] MEDS ORDERED: ENOXAPARIN SODIUM SQ SCH (10:00)
[2021-03-05] MEDS ORDERED: DECADRON 10MG INJ. IV SCH (10:00)
[2021-03-05] MEDS ORDERED: Zithromax 500 MG/ 250 ML NaCl Premix 500 MG/250 ML IVPB IV SCH ×2 (10:00→22:00)
[2021-03-05 10:36] VITALS: PULSE 92
[2021-03-05] MEDS ORDERED: REMDESIVIR 100 MG in Sodium Chloride 0.9% 100 ML BAG 100 ML IV SCH (22:00)
--- NOTE | 2021-03-26 10:02 | SSS ---
DISCHARGE DIAGNOSES: 1) BILATERAL COVID PNEUMONIA. 2) HYPERCHOLESTEROLEMIA. 3) PERIPHERAL NEUROPATHY. 4) HYPERTENSION. 5) BENIGN PROSTATIC HYPERTROPHY. 6) NONSPECIFIC MENTAL DISORDER. DISPOSITION: Home medications were Abilify 10 mg a day, Tricor 145 q.d., Vicodin 10 every six hours PRN, Lamictal 100 b.i.d., lisinopril 20 b.i.d., Claritin 10 q.d., metoprolol 25 b.i.d., Protonix 40 q.d., prednisone and he had been discharged earlier from the hospital when he was treated for COVID and was taking 10 a day of Requip 1 mg q.d. for restless leg syndrome, Flomax 0.4 for benign prostatic hypertrophy, tizanidine 4 mg PRN back pain, Effexor 75 for anxiety. He no longer takes Ritalin. HOSPITAL COURSE: The patient had been admitted earlier for COVID. However, his oxygen never got very low. He improved and he was sent home. Unfortunately, he came back to the emergency room with increasing hypoxia. His chest x-ray showed typical findings of COVID, bilateral infiltrates. His potassium was a little bit low. His calcium was a little bit low. His white count was low. He was treated with the usual COVID medications and fluids and at one point high flow oxygen, Remdesivir, Decadron. He was anticoagulated, given antibodies. D-dimer was as high as 1400. He slowly improved and by 03/05/2021, he felt well and was walking around without problems. His O2 saturation was staying over 90% with 3 liters of oxygen nasal cannula. He was discharged home on the medications he came in on. He is to isolate for ten days. He is to return if his O2 saturations dropped and they cannot get them up by increasing his oxygen. PROGNOSIS: Good.
== END 2021-03-05 11:19 | disposition home or self-care (01) ==
LOC: ED 18:06 → MED SURG 22:20
PROVIDERS: ADMIT Family Medicine; ATTEND Family Medicine
DX: U07.1 COVID-19 (principal); J12.82 Pneumonia due to coronavirus disease 2019; R09.02 Hypoxemia; R00.0 Tachycardia, unspecified; E87.6 Hypokalemia; E83.51 Hypocalcemia; R74.02 Elevation of levels of lactic acid dehydrogenase [LDH]; D72.819 Decreased white blood cell count, unspecified; R91.8 Other nonspecific abnormal finding of lung field; I10 Essential (primary) hypertension; Z79.899 Other long term (current) drug therapy; E78.00 Pure hypercholesterolemia, unspecified; G62.9 Polyneuropathy, unspecified; N40.0 Benign prostatic hyperplasia without lower urinary tract symptoms; F99 Mental disorder, not otherwise specified
CPT/HCPCS: 0241U; 36000; 36415; 71045; 80053; 82728; 83605; 83615; 84484; 85025; 85379; 86308; 87040; 87400; 87651; 93005; 93041; 93268; 94760; 94762; 96360; 96374; 99285; G0378; J0456; J0696; J2930; A9270-GY

== ENCOUNTER 2021-03-07 08:28 | Inpatient (IN) | payer BC ==
[2021-03-07] MEDS: Sodium Chloride 0.9% 1000 ML 1,000 ML IV SCH ×3 (08:57→16:58)
--- NOTE | 2021-03-07 09:17 | ERPHSYRPT ---
- History of Present Illness Time Seen by Provider: 03/07/21 08:45 Source: patient Exam Limitations: no limitations Patient Subjective Stated Complaint: SOB Triage Nursing Assessment: Patient ambulated back to ED and transferred self to bed. Patient A+O X 3. Patient's skin pink, warm and dry. Patient COVID Postive as of 03/04/2021. Patient was admitted to hospital from 03/04/2021-03/05/2021 and dx with covid pneumonia. Patient has been checking oxygen saturation at home and was 88% at home and he was SOB. Patient noted to be SOB upon exertion. Patient complains of right hip pain / which is chronic. Lungs clear a/p maribel. Physician History: Patient is a 55-year-old white male who was diagnosed with Covid 3 days ago and admitted to the hospital on the he was released on the since has been home has been increasingly short of breath has O2 sat at home was 88% he is especially short of breath with exertion. Timing/Duration: day(s) (3) Cough Quality/Degree: dry cough Modifying Factors: Improves With: coughing, deep breath Associated Symptoms: chest pain/soreness, cough Allergies/Adverse Reactions: sulfamethoxazole [From Bactrim] Allergy (Intermediate, Verified 03/07/21 08:36) Rash trimethoprim [From Bactrim] Allergy (Intermediate, Verified 03/07/21 08:36) Rash Home Medications: Methylphenidate HCl [Ritalin] 10 mg PO BID 11/25/15 [History] Ropinirole HCl [Requip] 1 mg PO DINNER 11/25/15 [History] Aripiprazole 10 mg [Abilify 10 MG] 10 mg PO DAILY 01/13/17 [History] Fenofibrate,Micronized 145 mg* [Tricor 145 MG] 145 mg PO DAILY 01/13/17 [History] Lamotrigine 100 mg [lamICTAL 100MG TABLET] 100 mg PO BID 01/13/17 [Histo ry] Lisinopril 20 mg [Zestril 20 MG] 20 mg PO BID 01/13/17 [History] Loratadine 10 mg [Claritin 10 mg] 10 mg PO DAILY 01/13/17 [History] Metoprolol Tartrate 25 mg [Lopressor 25MG Tab] 25 mg PO BID 01/13/17 [History] Prednisone 10 mg [Deltasone 10 mg] 10 mg PO DAILY PRN PRN 01/13/17 [History] Tamsulosin HCl 0.4 mg [Flomax 0.4 MG] 0.4 mg PO DAILY 01/13/17 [History] Tizanidine HCl 4 mg PO Q6H PRN PRN 01/13/17 [History] Venlafaxine HCl ER 75 mg [Effexor XR 75 MG] 75 mg PO DAILY 01/13/17 [History] Hx Tetanus, Diphtheria Vaccination/Date Given: Yes Hx Influenza Vaccination/Date Given: No Hx Pneumococcal Vaccination/Date Given: No Immunizations Up to Date: Yes Travel Risk - International Travel Have you traveled outside of the country in past 3 weeks: No - Coronavirus Screening Are you exhibiting any of the following symptoms?: Yes Symptoms: Cough: New Onset, Shortness of Breath, Vomiting/Diarrhea, Headaches/Body Aches/Fatigue Close contact with a COVID-19 positive Pt in past 14-21 Days: Yes - Vaccine Status Have you recieved a Covid-19 vaccination: No - Review of Systems Constitutional: No Fever, No Chills Eyes: No Symptoms Ears, Nose, & Throat: No Symptoms Respiratory: Cough, Dyspnea, Dyspnea on Exertion (JOINER) Cardiac: Palpitations Abdominal/Gastrointestinal: No Symptoms Genitourinary Symptoms: No Symptoms Musculoskeletal: Arthralgias, Myalgias Neurological: Headache Psychological: No Symptoms Endocrine: Excessive Sweating - Past Medical History Pertinent Past Medical History: Yes Neurological History: No Pertinent History ENT History: No Pertinent History Cardiac History: High Cholesterol, Hypertension Respiratory History: No Pertinent History Endocrine Medical History: No Pertinent History Musculoskeletal History: No Pertinent History, Arthritis, Degenerative Disk Disease GI Medical History: No Pertinent History, Irritable Bowel History: No Pertinent History Psycho-Social History: No Pertinent History Male Reproductive Disorders: No Pertinent History Other Medical History: AMPUTATION OF LEFT FINGERS, C5 fx with C4,5,6 bone graph. - Past Surgical History Past Surgical History: Yes Neuro Surgical History: No Pertinent History Cardiac: No Pertinent History Respiratory: No Pertinent History Gastrointestinal: No Pertinent History, Cholecystectomy, Hernia Repair Genitourinary: No Pertinent History Musculoskeletal: No Pertinent History, Orthopedic Surgery, Amputation Male Surgical History: No Pertinent History Other Surgical History: neck surgery 1985 and 2000 C 4,5,6 bone graph, T1 bone s having. Left finger amputation with mulitple skin graphs from left thigh to hand. - Social History Smoking Status: Never smoker Exposure to second hand smoke: No Drug Use: none Patient Lives Alone: No Significant Family History: no pertinent family hx - Nursing Vital Signs Nursing Vital Signs: Initial Vital Signs Temperature 98.3 F 03/07/21 08:37 Pulse Rate 79 03/07/21 08:37 Respiratory Rate 30 H 03/07/21 08:37 Blood Pressure 146/101 03/07/21 08:37 O2 Sat by Pulse Oximetry 96 03/07/21 08:37 Pain Scale Pain Intensity 5 - Physical Exam General Appearance: mild distress, alert Eye Exam: PERRL/EOMI, eyes nml inspection Ears, Nose, Throat Exam: normal ENT inspection, TMs normal, pharynx normal, moist mucous membranes Neck Exam: normal inspection, non-tender, supple, full range of motion Respiratory Exam: normal breath sounds, lungs clear, No respiratory distress Cardiovascular Exam: tachycardia, irregular, No regular rate/rhythm Gastrointestinal/Abdomen Exam: soft, No tenderness Back Exam: normal inspection, No CVA tenderness, No vertebral tenderness Extremity Exam: normal inspection, normal range of motion Neurologic Exam: alert, oriented x 3, cooperative, normal mood/affect, sensation nml, No motor deficits Skin Exam: normal color, warm, dry, No rash Lymphatic Exam: No adenopathy SpO2: 95 - Course Nursing assessment & vital signs reviewed: Yes EKG Interpreted by Me: RATE ([id number]), A-fib, NORMAL AXIS, Non-specific ST Changes - Radiology Exams Chest X-ray Interpretation: Interpreted by me, Infiltrates (Increased extensive areas of opacity in both lung crowell right greater than left on the chest x-ray) - CT Exams Chest CT Interpretation: Tele-radiologist Report (Extensive scattered areas of poorly defined groundglass disease throughout the lung parenchyma no pulmonary embolus) Ordered Tests: Active Orders 24 hr Category Date Time Status EKG-ER Only STAT Care 03/07/21 08:52 Active CHEST 1 VIEW (PORTABLE) Stat Exams 03/07/21 08:53 Taken CHEST WITH CONTRAST [CT] Stat Exams 03/07/21 09:47 Taken CBC W DIFF Stat Lab 03/07/21 09:26 Completed CMP Stat Lab 03/07/21 09:26 Completed D-DIMER QUANTITATIVE Stat Lab 03/07/21 09:26 Completed Lactic Acid Stat Lab 03/07/21 09:53 Completed MAGNESIUM Stat Lab 03/07/21 09:26 Completed NT PRO BNP Stat Lab 03/07/21 09:10 Completed PROTIME WITH INR Stat Lab 03/07/21 09:26 Completed TROPONIN Q3H Lab 03/07/21 09:26 Completed TROPONIN Q3H Lab 03/07/21 11:56 Completed TROPONIN Q3H Lab 03/07/21 15:00 Ordered TROPONIN Q3H Lab 03/07/21 18:00 Ordered TROPONIN Q3H Lab 03/07/21 21:00 Ordered Medication Summary Generic Name Dose Route Start Last Admin Trade Name Freq PRN Reason Stop Dose Admin Sodium Chloride 1,000 mls @ 100 mls/hr 03/07/21 09:00 03/07/21 08:57 Sodium Chloride 0.9% 1000 Ml IV 04/06/21 08:59 100 mls/hr .Q10H JENNIFER Administration Discontinued Medications Generic Name Dose Route Start Last Admin Trade Name Freq PRN Reason Stop Dose Admin Metoprolol Tartrate 2.5 mg 03/07/21 09:18 03/07/21 09:21 Metoprolol Tartrate 5 Mg/5 Ml Injection IV 03/07/21 09:19 2.5 mg STAT ONE Administration Metoprolol Tartrate Confirm 03/07/21 09:21 Metoprolol Tartrate 5 Mg/5 Ml Injection Administered 03/07/21 09:22 Dose 5 mg IV .[facility]-Codes[facility] ONE Lab/Rad Data: Laboratory Result Diagrams 03/07/21 09:26 03/07/21 09:26 Laboratory Results 03/07/21 03/07/21 03/07/21 Range/Units 11:56 09:53 09:26 WBC (4.0-10.5) K/mm3 RBC (4.1-5.6) M/mm3 Hgb (12.5-18.0) gm/dl Hct (42-50) % MCV (78-100) fl MCH (26-32) pg MCHC (32-36) g/dl RDW (11.5-14.0) % Plt Count (150-450) K/mm3 MPV (7.5-11.0) fl Gran % (36.0-66.0) % Eos # (Auto) (0-0.5) Absolute Lymphs (auto) (1.0-4.6) Absolute Monos (auto) (0.0-1.3) Lymphocytes % (24.0-44.0) % Monocytes % (0.0-12.0) % Eosinophils % (0.00-5.0) % Basophils % (0.0-0.4) % Absolute Granulocytes (1.4-6.9) Basophils # (0-0.4) PT (9.4-12.5) SECONDS INR (0.8-3.0) D-Dimer (215-500) ng/mL Sodium (137-145) mmol/L Potassium (3.5-5.1) mmol/L Chloride (98-107) mmol/L Carbon Dioxide (22-30) mmol/L Anion Gap (5-15) MEQ/L BUN (9-20) mg/dL Creatinine (0.66-1.25) mg/dL Estimated GFR ML/MIN Glucose (74-106) mg/dL Lactic Acid 1.8 (0.4-2.0) Calcium (8.4-10.2) mg/dL Magnesium (1.6-2.3) mg/dL Total Bilirubin (0.2-1.3) mg/dL AST (17-59) U/L ALT (0-50) U/L Alkaline Phosphatase (38-126) U/L Troponin I < 0.012 0.014 (0.000-0.034) ng/mL NT-Pro-B Natriuret Pep (0-900) pg/mL Serum Total Protein (6.3-8.2) g/dL Albumin (3.5-5.0) g/dL 03/07/21 03/07/21 03/07/21 Range/Units 09:26 09:26 09:26 WBC 7.2 (4.0-10.5) K/mm3 RBC 5.38 (4.1-5.6) M/mm3 Hgb 16.7 (12.5-18.0) gm/dl Hct 50.0 (42-50) % MCV 92.9 (78-100) fl MCH 31.0 (26-32) pg MCHC 33.4 (32-36) g/dl RDW 14.8 H (11.5-14.0) % Plt Count 283 (150-450) K/mm3 MPV 9.9 (7.5-11.0) fl Gran % 87.0 H (36.0-66.0) % Eos # (Auto) 0 (0-0.5) Absolute Lymphs (auto) 0.61 L (1.0-4.6) Absolute Monos (auto) 0.31 (0.0-1.3) Lymphocytes % 8.4 L (24.0-44.0) % Monocytes % 4.3 (0.0-12.0) % Eosinophils % 0.0 (0.00-5.0) % Basophils % 0.3 (0.0-0.4) % Absolute Granulocytes 6.30 (1.4-6.9) Basophils # 0.02 (0-0.4) PT 12.9 H (9.4-12.5) SECONDS INR 1.09 (0.8-3.0) D-Dimer 705 H* (215-500) ng/mL Sodium 139 (137-145) mmol/L Potassium 3.6 (3.5-5.1) mmol/L Chloride 105 (98-107) mmol/L Carbon Dioxide 25 (22-30) mmol/L Anion Gap 12.2 (5-15) MEQ/L BUN 18 (9-20) mg/dL Creatinine 0.85 (0.66-1.25) mg/dL Estimated GFR > 60.0 ML/MIN Glucose 111 H (74-106) mg/dL Lactic Acid (0.4-2.0) Calcium 8.7 (8.4-10.2) mg/dL Magnesium 1.7 (1.6-2.3) mg/dL Total Bilirubin 0.60 (0.2-1.3) mg/dL AST 66 H (17-59) U/L ALT 34 (0-50) U/L Alkaline Phosphatase 61 (38-126) U/L Troponin I (0.000-0.034) ng/mL NT-Pro-B Natriuret Pep (0-900) pg/mL Serum Total Protein 6.0 L (6.3-8.2) g/dL Albumin 3.4 L (3.5-5.0) g/dL 03/07/21 Range/Units 09:10 WBC (4.0-10.5) K/mm3 RBC (4.1-5.6) M/mm3 Hgb (12.5-18.0) gm/dl Hct (42-50) % MCV (78-100) fl MCH (26-32) pg MCHC (32-36) g/dl RDW (11.5-14.0) % Plt Count (150-450) K/mm3 MPV (7.5-11.0) fl Gran % (36.0-66.0) % Eos # (Auto) (0-0.5) Absolute Lymphs (auto) (1.0-4.6) Absolute Monos (auto) (0.0-1.3) Lymphocytes % (24.0-44.0) % Monocytes % (0.0-12.0) % Eosinophils % (0.00-5.0) % Basophils % (0.0-0.4) % Absolute Granulocytes (1.4-6.9) Basophils # (0-0.4) PT (9.4-12.5) SECONDS INR (0.8-3.0) D-Dimer (215-500) ng/mL Sodium (137-145) mmol/L Potassium (3.5-5.1) mmol/L Chloride (98-107) mmol/L Carbon Dioxide (22-30) mmol/L Anion Gap (5-15) MEQ/L BUN (9-20) mg/dL Creatinine (0.66-1.25) mg/dL Estimated GFR ML/MIN Glucose (74-106) mg/dL Lactic Acid (0.4-2.0) Calcium (8.4-10.2) mg/dL Magnesium (1.6-2.3) mg/dL Total Bilirubin (0.2-1.3) mg/dL AST (17-59) U/L ALT (0-50) U/L Alkaline Phosphatase (38-126) U/L Troponin I (0.000-0.034) ng/mL NT-Pro-B Natriuret Pep 785 (0-900) pg/mL Serum Total Protein (6.3-8.2) g/dL Albumin (3.5-5.0) g/dL - Progress Progress: improved Air Movement: fair Blood Culture(s) Obtained: No Antibiotics given: No Discussed with : Other (Dr Esposito) Will see patient in: hospital (full admit) - Departure Departure Disposition: In-patient Admission Clinical Impression: Pneumonia due to COVID-19 virus Condition: Serious Critical Care Time: No Referrals: AMA MORAN NP [Primary Care Provider] - Follow up/PCP as directed
[2021-03-07] MEDS ORDERED: LOPRESSOR 5 MG/5 ML INJECTION IV ONE ×2 (09:18→09:21)
[2021-03-07 09:32] LABS: BASOPHIL % 0.3 % (0.0-0.4); Basophil (Absolute #) 0.02 (0-0.4); Eosinophil (Absolute #) 0 (0-0.5); Hemoglobin 16.7 gm/dl (12.5-18.0); Lymphocyte (Absolute #) 0.61 (1.0-4.6); Lymphocytes % 8.4 % (24.0-44.0); Mean Cell Volume 92.9 fl (78-100); Mean Corpuscular Hgb Concent. 33.4 g/dl (32-36); Mean Platelet Volume 9.9 fl (7.5-11.0); Monocyte (Absolute #) 0.31 (0.0-1.3); Monocytes % 4.3 % (0.0-12.0); Platelet Count 283 K/mm3 (150-450); Red Blood Count 5.38 M/mm3 (4.1-5.6); Red Cell Distribution Width 14.8 % (11.5-14.0); White Blood Count 7.2 K/mm3 (4.0-10.5)
[2021-03-07 09:37] LABS: INR 1.09 (0.8-3.0); PROTIME 12.9 SECONDS (9.4-12.5)
[2021-03-07 09:46] LABS: ALBUMIN 3.4 g/dL (3.5-5.0); ALKALINE PHOSPHATASE 61 U/L (38-126); ANION GAP 12.2 MEQ/L (5-15); BLOOD UREA NITROGEN 18 mg/dL (9-20); CHLORIDE 105 mmol/L (98-107); Calcium 8.7 mg/dL (8.4-10.2); Carbon Dioxide 25 mmol/L (22-30); Creatinine 1 0.85 mg/dL (0.66-1.25); EST GLOMERULAR FILTRATION RATE > 60.0 ML/MIN; Glucose 111 mg/dL (74-106); MAGNESIUM 1.7 mg/dL (1.6-2.3); Potassium 3.6 mmol/L (3.5-5.1); SGOT/AST 66 U/L (17-59); SGPT/ALT 34 U/L (0-50); SODIUM 139 mmol/L (137-145)
[2021-03-07] MEDS ORDERED: Heparin 5000 UNITS/0.5 ML (HIGH RISK MED) IV ONE (14:44)
[2021-03-07] MEDS: Heparin 25,000 units/D5W 250ML PREMIX 25,000 UNITS/250 ML BAG IV SCH (14:47)
[2021-03-07] MEDS: CARDIZEM DRIP 100 MG/100 ML D5W 100 ML IV PRN ×2 (14:48→16:00)
[2021-03-07] MEDS: Cardizem IV 50 MG/10 ML IV ONE ×2 (14:48→16:00)
[2021-03-07] MEDS ORDERED: REMDESIVIR 200 MG in Sodium Chloride 0.9% 250 ML 250 ML IV ONE (15:00)
[2021-03-07] MEDS ORDERED: Ativan 1 MG PO PRN (15:07)
[2021-03-07] MEDS ORDERED: FEVERALL 325 MG PR PRN (15:15)
[2021-03-07] MEDS ORDERED: Zofran 4 MG/2 ML VIAL IV PRN (15:15)
[2021-03-07] MEDS ORDERED: Adenocard IV 6 MG/2 ML IV ONE ×5 (15:18→15:37)
[2021-03-07] MEDS ORDERED: Zanaflex 4 MG PO PRN (17:00)
[2021-03-07] MEDS: Requip 0.5 MG PO SCH (17:30)
[2021-03-07] MEDS ORDERED: Sodium Chloride 0.9% 250 ML 250 ML IV ONE (18:27)
[2021-03-07] MEDS ORDERED: REMDESIVIR IV ONE (18:27)
--- NOTE | 2021-03-07 19:13 | XRAY ---
Indication: Covid 19. Elevated d-dimer. Pulmonary embolus. Multiple contiguous images obtained through the chest using 100 cc Isovue 370 contrast and PE protocol. Comparison: None There is good opacification of the pulmonary arteries to including the lobar and segmental branches. No pulmonary embolus. Heart not enlarged. Aorta is normal in course and caliber. No pathologic mediastinal/hilar lymphadenopathy. Small hiatal hernia. Lungs demonstrates moderate diffuse bilateral airspace disease right greater the left without consolidation/effusion. Bony thorax intact with mild degenerative changes throughout the spine. Limited upper abdomen demonstrates fatty liver and cholecystectomy clips. Impression: 1. Negative pulmonary embolus. 2. Diffuse bilateral patchy airspace disease favoring Covid 19 pneumonia. Other processes such as influenza pneumonia and organizing pneumonia, as can be seen with drug toxicity and connective tissue disease, can cause a similar imaging pattern. 3. Incidental fatty liver.
--- NOTE | 2021-03-07 19:13 | XRAY ---
Indication: Positive Covid 19. Fever and cough. Comparison: March 04, 2021. Portable chest demonstrates grossly stable diffuse bilateral patchy airspace disease without consolidation/large effusion. Heart not enlarged. No new cardiopulmonary abnormalities.
[2021-03-07] MEDS: HYDROCODONE-CHLORPHEN ER SUSP PO PRN (19:50)
[2021-03-07] MEDS: TYLENOL EXTRA STRENGTH 500 MG PO PRN (19:51)
[2021-03-07] MEDS: Zestril 20 MG PO SCH (21:30)
[2021-03-07] MEDS: Ritalin 5 MG PO SCH (21:34)
[2021-03-07] MEDS: lamICTAL 100MG TABLET PO SCH (21:35)
[2021-03-07] MEDS: Lopressor 25MG Tab PO SCH (21:35)
[2021-03-07] MEDS ORDERED: Zestril 20 MG PO SCH (22:00)
[2021-03-07 22:11] LABS: INR 1.13 (0.8-3.0); PROTIME 13.3 SECONDS (9.4-12.5)
[2021-03-07 22:13] LABS: PTT 55.5 SECONDS (25.1-36.5)
[2021-03-08] MEDS: Sodium Chloride 0.9% 1000 ML 1,000 ML IV SCH ×2 (00:37→13:20)
[2021-03-08] MEDS: CARDIZEM DRIP 100 MG/100 ML D5W 100 ML IV PRN ×3 (00:52→17:20)
[2021-03-08 06:20] LABS: Hematocrit 46.8 % (42-50); Hemoglobin 15.6 gm/dl (12.5-18.0); Mean Corpuscular Hgb Concent. 33.3 g/dl (32-36); Mean Platelet Volume 10.1 fl (7.5-11.0); Platelet Count 294 K/mm3 (150-450); Red Blood Count 5.03 M/mm3 (4.1-5.6); Red Cell Distribution Width 14.9 % (11.5-14.0); White Blood Count 6.7 K/mm3 (4.0-10.5)
[2021-03-08] MEDS ORDERED: FEVERALL 650 MG RC PRN (07:02)
[2021-03-08 07:06] LABS: ALBUMIN 3.1 g/dL (3.5-5.0); ALKALINE PHOSPHATASE 62 U/L (38-126); ANION GAP 11.5 MEQ/L (5-15); BLOOD UREA NITROGEN 16 mg/dL (9-20); CHLORIDE 107 mmol/L (98-107); Carbon Dioxide 23 mmol/L (22-30); Creatinine 1 0.79 mg/dL (0.66-1.25); EST GLOMERULAR FILTRATION RATE > 60.0 ML/MIN; Glucose 85 mg/dL (74-106); NT PRO BNP 766 pg/mL (0-900); Potassium 3.9 mmol/L (3.5-5.1); SGOT/AST 66 U/L (17-59); SGPT/ALT 31 U/L (0-50); SODIUM 138 mmol/L (137-145); Total Protein 5.8 g/dL (6.3-8.2)
[2021-03-08] MEDS: HYDROCODONE-CHLORPHEN ER SUSP PO PRN (08:40)
[2021-03-08] MEDS ORDERED: Lomotil PO PRN (08:54)
[2021-03-08] MEDS: OLUMIANT PO SCH (09:47)
[2021-03-08] MEDS: DECADRON 10MG INJ. IV SCH (09:48)
[2021-03-08] MEDS: Protonix 40MG Tablet PO SCH (09:48)
[2021-03-08] MEDS: Zestril 20 MG PO SCH ×2 (09:48→20:51)
[2021-03-08] MEDS: Flomax 0.4 MG PO SCH (09:49)
[2021-03-08] MEDS: Tricor 145 MG PO SCH (09:49)
[2021-03-08] MEDS: lamICTAL 100MG TABLET PO SCH ×2 (09:49→20:50)
[2021-03-08] MEDS: Abilify 10 MG PO SCH (09:49)
[2021-03-08] MEDS: Effexor XR 75 MG PO SCH (09:50)
[2021-03-08] MEDS: CLARITIN 10 MG PO SCH (09:50)
[2021-03-08] MEDS: Lopressor 25MG Tab PO SCH ×2 (09:50→20:50)
[2021-03-08] MEDS: Ritalin 5 MG PO SCH (09:52)
[2021-03-08] MEDS ORDERED: Decadron 4 MG INJ IV SCH (10:00)
[2021-03-08] MEDS ORDERED: ENOXAPARIN SODIUM SQ SCH (10:00)
[2021-03-08] MEDS: TYLENOL EXTRA STRENGTH 500 MG PO PRN (10:25)
[2021-03-08] MEDS: Ativan 2 MG/1 ML VIAL IV PRN (10:30)
[2021-03-08] MEDS: Heparin 25,000 units/D5W 250ML PREMIX 25,000 UNITS/250 ML BAG IV SCH (13:30)
--- NOTE | 2021-03-08 14:23 | HP ---
CHIEF COMPLAINT: Shortness of breath, racing heart, positive COVID test. HISTORY OF PRESENT ILLNESS: The patient is a 55-year-old white male who was released here two days ago after being treated for two days with COVID drugs and low dose oxygen for COVID pneumonia. It looked like he was well on his way to recovery. I think he went home on 2 liters of oxygen. He was very active and wanted to leave, thought he was stable at that time. However, this morning he noticed his heart rate was fast and irregular and he was having more trouble breathing. He came to the emergency room and was found to in atrial fibrillation with mildly rapid rate, normal blood pressure. His oxygen was down in the 80's. He was started on oxygen by CPAP which got his levels up to normal. He was given metoprolol several times with the rate coming down to 90's but no conversion. He denies any real chest pain just noticing a fluttering feeling. He states he may have had it in the past for brief periods of time. He was first diagnosed here on 03/04/2021 but had gotten worse on the day of admission. He has some chronic hip pain. TRAVEL RISK: No international travel. VACCINES: No vaccines. HOME MEDICATIONS: Abilify, the patient is not schizophrenic probably for depression. Tricor 145 q.d. for amputation of hand and multiple neck surgeries. Lamictal due to neuropathy and also psych problems. Lisinopril 20 b.i.d., Claritin 10 q.d., He has not taken Ritalin for a long time. He has been on metoprolol 25 b.i.d., Protonix 40 q.d. At home he was placed on prednisone for treatment of his COVID and wheezing. Requip for restless leg syndrome. Flomax 0.4 mg, tizanidine 4 mg for back pain, Effexor 75 q.d. for anxiety. ALLERGIES: SULFA. TRIMETHOPRIM. SOCIAL HISTORY: Lives with his . The patient is disabled due to neck problems and amputation of his hand. 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 He is nonsmoker. PAST MEDICAL HISTORY: Anxiety, arthritis, hypertension, back pain, restless leg. PAST SURGICAL HISTORY: Cholecystectomy. Hernia repair. Amputation of the fingers of left hand metatarsal area. Neck surgeries C4, C5, C6. REVIEW OF SYSTEMS: CONSTITUTIONAL: No fever. No chills. HEENT: Occasional cough. CHEST: Occasional cough, nonsmoker. Known COVID for five days. CVS: Previously no real symptoms. Today, there were some palpitations, irregular fast heart rate. MUSCULOSKELETAL: The patient has restless legs. He has back pain, neck pain. 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 PSYCH: He does have some anxiety and depression, which seems to be sort of controlled. GI: No problems. PHYSICAL EXAMINATION: Vital signs on admission temperature 98F, pulse 79, respiratory rate 30 and blood pressure 140/101. O2 saturation was 96%. Pain intensity 5. GENERAL: He is anxious as normal. HEENT: Pupils equal and reactive to light. Hears well. NECK: Supple without adenopathy. There are scars from past surgery. CVS: Irregular, fast and 100. ABDOMEN: Soft, obese. No masses, organomegaly or scars. EXTREMITIES: Can move all, plus the amputations of forefingers of the left hand. SKIN: No rashes. LAB DATA AND TESTS: CT scan showed COVID. X-ray showed COVID. EKG showed atrial fibrillation. Treatment in the emergency room included 2.5 metoprolol IV and then later on 5 mg which slowed his rate but did not convert him. His hemoglobin was 16, white count 7. Electrolytes were normal. Lactic acid 1.5. INR was normal. He was started on heparin drip. D-dimer was elevated at 705. Creatinine 0.85. IMPRESSION: The patient has COVID pneumonia. He does have some rapid atrial fibrillation which is now controlled with a Cardizem drip. Prior to that we tried to convert him with Adenosine three times without any effect. I do note on admission that his D-dimer and his NT pro-time was normal at 785. PLAN: The patient will be aggressively treated for COVID, continue to try to convert his atrial fibrillation expecting will get better as COVID gets better and continue the Cardizem. Follow his heparin drip with PT's, might go ahead and start him on some warfarin and get an echocardiogram. PROGNOSIS: Good.
[2021-03-08 18:20] LABS: Hematocrit 43.9 % (42-50); Hemoglobin 14.8 gm/dl (12.5-18.0); INR 1.09 (0.8-3.0); Mean Cell Volume 93.6 fl (78-100); Mean Corpuscular Hemoglobin 31.6 pg (26-32); Mean Corpuscular Hgb Concent. 33.7 g/dl (32-36); Mean Platelet Volume 9.7 fl (7.5-11.0); PROTIME 12.9 SECONDS (9.4-12.5); Platelet Count 320 K/mm3 (150-450); Red Blood Count 4.69 M/mm3 (4.1-5.6); Red Cell Distribution Width 14.8 % (11.5-14.0); White Blood Count 3.5 K/mm3 (4.0-10.5)
[2021-03-08] MEDS: Requip 0.5 MG PO SCH (18:38)
[2021-03-08] MEDS: Coumadin 5 MG PO SCH (18:41)
[2021-03-08] MEDS: REMDESIVIR 100 MG in Sodium Chloride 0.9% 100 ML BAG 100 ML IV SCH (20:50)
[2021-03-08] MEDS: Ativan 1 MG PO PRN (23:14)
[2021-03-09 06:40] LABS: Hematocrit 44.4 % (42-50); Hemoglobin 14.6 gm/dl (12.5-18.0); Mean Cell Volume 93.5 fl (78-100); Mean Corpuscular Hemoglobin 30.7 pg (26-32); Mean Corpuscular Hgb Concent. 32.9 g/dl (32-36); Mean Platelet Volume 9.8 fl (7.5-11.0); Platelet Count 362 K/mm3 (150-450); Red Blood Count 4.75 M/mm3 (4.1-5.6); Red Cell Distribution Width 14.6 % (11.5-14.0); White Blood Count 5.7 K/mm3 (4.0-10.5)
[2021-03-09 07:07] LABS: ALKALINE PHOSPHATASE 60 U/L (38-126); ANION GAP 10.7 MEQ/L (5-15); BLOOD UREA NITROGEN 19 mg/dL (9-20); CHLORIDE 109 mmol/L (98-107); Carbon Dioxide 22 mmol/L (22-30); Creatinine 1 0.65 mg/dL (0.66-1.25); EST GLOMERULAR FILTRATION RATE > 60.0 ML/MIN; Glucose 122 mg/dL (74-106); NT PRO BNP 700 pg/mL (0-900); SGOT/AST 45 U/L (17-59); SGPT/ALT 24 U/L (0-50); SODIUM 138 mmol/L (137-145); Total Protein 5.5 g/dL (6.3-8.2)
[2021-03-09 07:19] LABS: INR 1.05 (0.8-3.0); PROTIME 12.4 SECONDS (9.4-12.5)
[2021-03-09 07:22] LABS: PTT 46.5 SECONDS (25.1-36.5)
[2021-03-09] MEDS: Lopressor 25MG Tab PO SCH (07:26)
[2021-03-09] MEDS: OLUMIANT PO SCH (09:59)
[2021-03-09] MEDS: Protonix 40MG Tablet PO SCH (09:59)
[2021-03-09] MEDS: lamICTAL 100MG TABLET PO SCH ×2 (09:59→22:11)
[2021-03-09] MEDS: Zestril 20 MG PO SCH ×2 (09:59→22:10)
[2021-03-09] MEDS: Abilify 10 MG PO SCH (10:00)
[2021-03-09] MEDS: CLARITIN 10 MG PO SCH (10:01)
[2021-03-09] MEDS: Effexor XR 75 MG PO SCH (10:01)
[2021-03-09] MEDS: DECADRON 10MG INJ. IV SCH (10:01)
[2021-03-09] MEDS: Tricor 145 MG PO SCH (10:02)
[2021-03-09] MEDS: Heparin 25,000 units/D5W 250ML PREMIX 25,000 UNITS/250 ML BAG IV SCH ×2 (10:02→12:19)
[2021-03-09] MEDS: Flomax 0.4 MG PO SCH (10:02)
[2021-03-09] MEDS ORDERED: Lanoxin 0.5 MG/2 ML INJECTION IV ONE (10:15)
[2021-03-09] MEDS: Levofloxacin 500 MG Tablet PO SCH (10:40)
[2021-03-09] MEDS: Levofloxacin 250MG Tablet PO SCH (10:40)
[2021-03-09 11:02] LABS: INR 1.12 (0.8-3.0); PROTIME 13.2 SECONDS (9.4-12.5)
[2021-03-09 11:04] LABS: PTT 48.6 SECONDS (25.1-36.5)
[2021-03-09] MEDS: Sodium Chloride 0.9% 1000 ML 1,000 ML IV SCH ×3 (15:44→22:31)
[2021-03-09] MEDS: Lanoxin 0.5 MG/2 ML INJECTION IV SCH ×2 (16:22→22:10)
[2021-03-09] MEDS: Coumadin 5 MG PO SCH (18:08)
[2021-03-09] MEDS: Requip 0.5 MG PO SCH (18:08)
[2021-03-09] MEDS: REMDESIVIR 100 MG in Sodium Chloride 0.9% 100 ML BAG 100 ML IV SCH (18:09)
[2021-03-09] MEDS: Ativan 1 MG PO PRN (22:11)
[2021-03-10] MEDS ORDERED: APRESOLINE 20 MG/ML INJ IV ONE (01:25)
[2021-03-10 05:50] LABS: Hematocrit 42.3 % (42-50); Hemoglobin 14.2 gm/dl (12.5-18.0); Mean Cell Volume 92.8 fl (78-100); Mean Corpuscular Hemoglobin 31.1 pg (26-32); Mean Corpuscular Hgb Concent. 33.6 g/dl (32-36); Mean Platelet Volume 9.6 fl (7.5-11.0); Platelet Count 432 K/mm3 (150-450); Red Blood Count 4.56 M/mm3 (4.1-5.6); Red Cell Distribution Width 14.2 % (11.5-14.0); White Blood Count 10.3 K/mm3 (4.0-10.5)
[2021-03-10] MEDS: Ativan 2 MG/1 ML VIAL IV PRN (05:53)
[2021-03-10 06:12] LABS: INR 2.03 (0.8-3.0); PROTIME 23.9 SECONDS (9.4-12.5)
[2021-03-10 06:24] LABS: ALBUMIN 3.1 g/dL (3.5-5.0); ALKALINE PHOSPHATASE 62 U/L (38-126); BLOOD UREA NITROGEN 23 mg/dL (9-20); CHLORIDE 110 mmol/L (98-107); Calcium 8.3 mg/dL (8.4-10.2); Carbon Dioxide 21 mmol/L (22-30); Creatinine 1 0.77 mg/dL (0.66-1.25); EST GLOMERULAR FILTRATION RATE > 60.0 ML/MIN; Glucose 115 mg/dL (74-106); NT PRO BNP 1360 pg/mL (0-900); Potassium 3.7 mmol/L (3.5-5.1); SGOT/AST 43 U/L (17-59); SGPT/ALT 24 U/L (0-50); SODIUM 137 mmol/L (137-145); Total Protein 5.8 g/dL (6.3-8.2)
[2021-03-10 06:32] LABS: PTT 79.8 SECONDS (25.1-36.5)
--- NOTE | 2021-03-10 09:28 | XRAY ---
Indication: Covid 19 pneumonia. Comparison: March 07, 2021. Portable chest unchanged again demonstrating moderate diffuse bilateral patchy airspace disease without consolidation/large effusion. Heart not enlarged. No new cardiopulmonary abnormalities.
[2021-03-10] MEDS: OLUMIANT PO SCH (10:05)
[2021-03-10] MEDS: Protonix 40MG Tablet PO SCH (10:05)
[2021-03-10] MEDS: Lanoxin 0.125MG TABLET PO SCH (10:05)
[2021-03-10] MEDS: DECADRON 10MG INJ. IV SCH (10:07)
[2021-03-10] MEDS: Zestril 20 MG PO SCH ×2 (10:07→21:13)
[2021-03-10] MEDS: Abilify 10 MG PO SCH (10:08)
[2021-03-10] MEDS: lamICTAL 100MG TABLET PO SCH ×2 (10:13→21:13)
[2021-03-10] MEDS: Flomax 0.4 MG PO SCH (10:13)
[2021-03-10] MEDS: CLARITIN 10 MG PO SCH (10:13)
[2021-03-10] MEDS: Effexor XR 75 MG PO SCH (10:13)
[2021-03-10] MEDS: Levofloxacin 250MG Tablet PO SCH (10:14)
[2021-03-10] MEDS: Levofloxacin 500 MG Tablet PO SCH (10:14)
[2021-03-10] MEDS: Cardizem CD 120 MG PO SCH ×2 (10:14→21:13)
[2021-03-10] MEDS: Tricor 145 MG PO SCH (10:14)
[2021-03-10] MEDS ORDERED: Lanoxin 0.5 MG/2 ML INJECTION IV SCH (12:00)
[2021-03-10] MEDS: Sodium Chloride 0.9% 1000 ML 1,000 ML IV SCH (16:06)
[2021-03-10] MEDS: Requip 0.5 MG PO SCH (17:14)
[2021-03-10] MEDS: REMDESIVIR 100 MG in Sodium Chloride 0.9% 100 ML BAG 100 ML IV SCH (17:51)
[2021-03-10] MEDS ORDERED: Coumadin 5 MG PO SCH (18:00)
[2021-03-10] MEDS: HYDROCODONE-CHLORPHEN ER SUSP PO PRN (21:18)
[2021-03-11] MEDS: Sodium Chloride 0.9% 1000 ML 1,000 ML IV SCH (04:06)
[2021-03-11 06:17] LABS: Hematocrit 44.2 % (42-50); Hemoglobin 14.6 gm/dl (12.5-18.0); Mean Cell Volume 93.4 fl (78-100); Mean Corpuscular Hemoglobin 30.9 pg (26-32); Mean Platelet Volume 10.2 fl (7.5-11.0); Platelet Count 337 K/mm3 (150-450); Red Blood Count 4.73 M/mm3 (4.1-5.6); Red Cell Distribution Width 14.5 % (11.5-14.0); White Blood Count 14.5 K/mm3 (4.0-10.5)
[2021-03-11 06:22] LABS: ALBUMIN 3.2 g/dL (3.5-5.0); ALKALINE PHOSPHATASE 65 U/L (38-126); ANION GAP 10.9 MEQ/L (5-15); BLOOD UREA NITROGEN 23 mg/dL (9-20); CHLORIDE 109 mmol/L (98-107); Calcium 7.8 mg/dL (8.4-10.2); Carbon Dioxide 22 mmol/L (22-30); Creatinine 1 0.83 mg/dL (0.66-1.25); EST GLOMERULAR FILTRATION RATE > 60.0 ML/MIN; Glucose 107 mg/dL (74-106); NT PRO BNP 1210 pg/mL (0-900); Potassium 3.7 mmol/L (3.5-5.1); SGOT/AST 43 U/L (17-59); SGPT/ALT 29 U/L (0-50); SODIUM 138 mmol/L (137-145)
[2021-03-11 07:03] LABS: INR 4.52 (0.8-3.0); PROTIME 53.3 SECONDS (9.4-12.5)
--- NOTE | 2021-03-11 08:33 | CONS ---
CONSULT DATE: 03/10/2021 REASON FOR CONSULT: Hypoxic respiratory failure secondary to COVID-19. HISTORY: History was obtained from discussion with patient and reviewing current records. French Ortiz is 55-year-old male who was apparently admitted last week at [facility] with complaints of atrial fibrillation. He was treated for the same and was discharged to be readmitted with progressive shortness of breath. He had tested positive for COVID and is currently receiving treatment with IV Remdesivir and oral Olumiant. The patient has been getting progressively more short of breath. Currently remains on high flow oxygen with saturations. He is still able to carry out a conversation. He does have a nonproductive cough. He denies any previous pulmonary problems. The patient's body habitus is suggestive of possible underlying obstructive sleep apnea. However, he reportedly has never been tested for the same. PAST MEDICAL HISTORY: Positive for history of schizophrenia, dyslipidemia, peripheral neuropathy, hypertension, gastroesophageal reflux, atrial fibrillation, prosthetic enlargement. PAST SURGICAL HISTORY: He has had partial amputation of fingers of left hand with grafting. He has also had cervical spine stabilization to back/neck injury. He has had cholecystectomy and hernia repair. PERSONAL AND SOCIAL HISTORY: He is a nonsmoker. MEDICATIONS: Home and current medications are reviewed. ALLERGIES: BACTRIM. PHYSICAL EXAMINATION: This is a middle-aged male who appears tachypneic at rest. Vital signs noted. HEENT: Normocephalic. Oral exam shows small oropharynx. NECK: Unremarkable. CVS: First and second heart sounds are noted to be irregular, controlled rate. RESPIRATORY: Shows diminished breath sounds. ABDOMEN: Obese. EXTREMITIES: Left hand surgical changes noted. No edema is noted. LABORATORY DATA AND TESTS: X-rays were all reviewed. The patient is on Coumadin with therapeutic INR over 2 today. ASSESSMENT: This is a 55-year-old male admitted with: 1) Acute severe hypoxic respiratory failure. 2) COVID-19 positive with viral pneumonitis. 3) Atrial fibrillation rate controlled on anticoagulation. 4) Body habitus suggestive of possible obstructive sleep apnea. 5) History of schizophrenia and other comorbidities listed above. RECOMMENDATIONS: 1) I agree with current treatment. 2) The case was discussed with the respiratory therapist. Will attempt patient on high flow oxygen along with possible noninvasive ventilation at night to minimize work of breathing. 3) Continue prone lateral rotation positioning along with incentive spirometry and other supportive measures. PROGNOSIS: His prognosis remains guarded. I will be available to assist in his care. Thank you, Dr. Castaneda, for allowing me to participate in the care of this patient.
[2021-03-11] MEDS: Levofloxacin 500 MG Tablet PO SCH (08:38)
[2021-03-11] MEDS: Abilify 10 MG PO SCH (08:38)
[2021-03-11] MEDS: Cardizem CD 120 MG PO SCH ×2 (08:38→21:33)
[2021-03-11] MEDS: lamICTAL 100MG TABLET PO SCH ×2 (08:38→21:33)
[2021-03-11] MEDS: Levofloxacin 250MG Tablet PO SCH (08:39)
[2021-03-11] MEDS: Flomax 0.4 MG PO SCH (08:39)
[2021-03-11] MEDS: Effexor XR 75 MG PO SCH (08:40)
[2021-03-11] MEDS: CLARITIN 10 MG PO SCH (08:40)
[2021-03-11] MEDS: Tricor 145 MG PO SCH (08:41)
[2021-03-11] MEDS: Lanoxin 0.125MG TABLET PO SCH (08:44)
[2021-03-11] MEDS: OLUMIANT PO SCH (08:44)
[2021-03-11] MEDS: DECADRON 10MG INJ. IV SCH (08:44)
[2021-03-11] MEDS: Zestril 20 MG PO SCH ×2 (08:45→21:36)
[2021-03-11] MEDS: Protonix 40MG Tablet PO SCH (08:45)
--- NOTE | 2021-03-11 12:25 | PROG NOTE ---
DATE: 03/11/2021 Events noted. HISTORY: The patient is resting on high flow oxygen, appears comfortable, does report feeling better, still a bit sleepy. PHYSICAL EXAMINATION: Vital signs noted. HEENT: Normocephalic. Oral exam limited. CVS: First and second heart sounds are normal, regular, rhythmic. RESPIRATORY: Shows diminished breath sounds. ABDOMEN: Obese. EXTREMITIES: No edema is noted. LABORATORY DATA AND TESTS: Labs reviewed. INR is 4.5. ASSESSMENT: This is a 55-year-old male admitted with: 1) Acute severe hypoxic respiratory failure. 2) COVID-19 with viral pneumonia. 3) Paroxysmal atrial fibrillation on anticoagulation. 4) Coagulopathy with elevated INR. Coumadin needs to be put on hold with follow up INR tomorrow. RECOMMENDATIONS: Discussed with respiratory therapy, continue to wean supplemental oxygen currently on 50 liters 90%. Out of bed to chair as tolerated. Continue postural therapy and other supportive care.
--- NOTE | 2021-03-11 12:53 | ECHO ---
Transthoracic echocardiographic examination and color Doppler was done on 03/08/2021. INDICATION: Shortness of breath. IMPRESSION: 1) NO REGIONAL WALL MOTION ABNORMALITY. ESTIMATED GLOBAL LEFT VENTRICULAR EJECTION FRACTION OF AROUND 60 TO 65%. 2) TRACE MITRAL REGURGITATION. 3) TRACE TRICUSPID REGURGITATION. RIGHT VENTRICULAR SYSTOLIC PRESSURE OF 22 MM OF MERCURY. 4) LEFT VENTRICULAR HYPERTROPHY. 5) LEFT ATRIAL ENLARGEMENT. The left ventricle is visualized and demonstrated adequate motion of all the segments. Estimated global left ventricular ejection fraction of around 60 to 65%. There is mild left ventricular hypertrophy. The mitral valve is seen and this opens adequately. There is trace mitral regurgitation. Left atrium is mildly enlarged. The aortic valve opens adequately. There is no significant gradient across the left ventricular outflow tract. The right side chambers are normal. There is trace tricuspid regurgitation. The right ventricular systolic pressure of 22 mm of Mercury.
[2021-03-11] MEDS: Requip 0.5 MG PO SCH (16:59)
[2021-03-12] MEDS: Ativan 2 MG/1 ML VIAL IV PRN (01:20)
[2021-03-12 06:20] LABS: Hematocrit 45.1 % (42-50); Hemoglobin 14.9 gm/dl (12.5-18.0); Mean Cell Volume 93.2 fl (78-100); Mean Corpuscular Hemoglobin 30.8 pg (26-32); Mean Platelet Volume 9.9 fl (7.5-11.0); Platelet Count 334 K/mm3 (150-450); Red Blood Count 4.84 M/mm3 (4.1-5.6); Red Cell Distribution Width 14.5 % (11.5-14.0); White Blood Count 14.4 K/mm3 (4.0-10.5)
[2021-03-12 06:48] LABS: ALBUMIN 3.1 g/dL (3.5-5.0); ALKALINE PHOSPHATASE 65 U/L (38-126); ANION GAP 10.4 MEQ/L (5-15); BLOOD UREA NITROGEN 23 mg/dL (9-20); CHLORIDE 106 mmol/L (98-107); Calcium 8.1 mg/dL (8.4-10.2); Carbon Dioxide 24 mmol/L (22-30); Creatinine 1 0.79 mg/dL (0.66-1.25); EST GLOMERULAR FILTRATION RATE > 60.0 ML/MIN; Glucose 112 mg/dL (74-106); NT PRO BNP 696 pg/mL (0-900); Potassium 3.8 mmol/L (3.5-5.1); SGOT/AST 48 U/L (17-59); SGPT/ALT 36 U/L (0-50); SODIUM 137 mmol/L (137-145); Total Protein 5.8 g/dL (6.3-8.2)
[2021-03-12 07:03] LABS: INR 4.97 (0.8-3.0); PROTIME 58.6 SECONDS (9.4-12.5)
[2021-03-12] MEDS: Levofloxacin 250MG Tablet PO SCH (08:30)
[2021-03-12] MEDS: Cardizem CD 120 MG PO SCH ×2 (08:30→21:04)
[2021-03-12] MEDS: Abilify 10 MG PO SCH (08:30)
[2021-03-12] MEDS: lamICTAL 100MG TABLET PO SCH ×2 (08:30→21:04)
[2021-03-12] MEDS: Levofloxacin 500 MG Tablet PO SCH (08:31)
[2021-03-12] MEDS: CLARITIN 10 MG PO SCH (08:31)
[2021-03-12] MEDS: Effexor XR 75 MG PO SCH (08:32)
[2021-03-12] MEDS: Flomax 0.4 MG PO SCH (08:32)
[2021-03-12] MEDS: Tricor 145 MG PO SCH (08:32)
[2021-03-12] MEDS: Lanoxin 0.125MG TABLET PO SCH (08:40)
[2021-03-12] MEDS: DECADRON 10MG INJ. IV SCH (08:40)
[2021-03-12] MEDS: Zestril 20 MG PO SCH ×2 (08:40→21:04)
[2021-03-12] MEDS: Protonix 40MG Tablet PO SCH (08:40)
[2021-03-12] MEDS: OLUMIANT PO SCH (08:40)
[2021-03-12] MEDS: HYDROCODONE-ACETAMIN 10-325 MG PO PRN ×2 (08:46→16:03)
[2021-03-12] MEDS: Requip 0.5 MG PO SCH (16:03)
[2021-03-12] MEDS: Ativan 1 MG PO SCH (21:04)
[2021-03-12] MEDS: HYDROCODONE-CHLORPHEN ER SUSP PO PRN (21:04)
[2021-03-13 09:02] LABS: Hematocrit 43.4 % (42-50); Hemoglobin 14.6 gm/dl (12.5-18.0); Mean Cell Volume 92.3 fl (78-100); Mean Corpuscular Hemoglobin 31.1 pg (26-32); Mean Corpuscular Hgb Concent. 33.6 g/dl (32-36); Mean Platelet Volume 9.5 fl (7.5-11.0); Platelet Count 362 K/mm3 (150-450); Red Cell Distribution Width 14.2 % (11.5-14.0); White Blood Count 19.2 K/mm3 (4.0-10.5)
[2021-03-13 09:09] LABS: INR 2.91 (0.8-3.0); PROTIME 34.3 SECONDS (9.4-12.5)
[2021-03-13] MEDS: OLUMIANT PO SCH (09:32)
[2021-03-13] MEDS: Lanoxin 0.125MG TABLET PO SCH (09:32)
[2021-03-13] MEDS: Abilify 10 MG PO SCH (09:33)
[2021-03-13] MEDS: DECADRON 10MG INJ. IV SCH (09:33)
[2021-03-13] MEDS: Protonix 40MG Tablet PO SCH (09:33)
[2021-03-13] MEDS: Zestril 20 MG PO SCH ×2 (09:33→21:48)
[2021-03-13] MEDS: Tricor 145 MG PO SCH (09:33)
[2021-03-13] MEDS: Cardizem CD 120 MG PO SCH ×2 (09:34→21:47)
[2021-03-13] MEDS: CLARITIN 10 MG PO SCH (09:34)
[2021-03-13] MEDS: Effexor XR 75 MG PO SCH (09:35)
[2021-03-13] MEDS: Levofloxacin 250MG Tablet PO SCH (09:36)
[2021-03-13] MEDS: lamICTAL 100MG TABLET PO SCH ×2 (09:36→21:48)
[2021-03-13] MEDS: Levofloxacin 500 MG Tablet PO SCH (09:37)
[2021-03-13] MEDS: Flomax 0.4 MG PO SCH (09:37)
[2021-03-13 09:56] LABS: ALBUMIN 2.9 g/dL (3.5-5.0); ALKALINE PHOSPHATASE 61 U/L (38-126); ANION GAP 9.8 MEQ/L (5-15); BLOOD UREA NITROGEN 26 mg/dL (9-20); CHLORIDE 108 mmol/L (98-107); Carbon Dioxide 23 mmol/L (22-30); Creatinine 1 0.81 mg/dL (0.66-1.25); EST GLOMERULAR FILTRATION RATE > 60.0 ML/MIN; Glucose 104 mg/dL (74-106); NT PRO BNP 461 pg/mL (0-900); Potassium 3.9 mmol/L (3.5-5.1); SGOT/AST 29 U/L (17-59); SGPT/ALT 28 U/L (0-50); SODIUM 137 mmol/L (137-145); Total Protein 5.4 g/dL (6.3-8.2)
[2021-03-13] MEDS ORDERED: VITAMIN D2 PO SCH (11:30)
[2021-03-13] MEDS: Mucinex 600MG ER Tabs PO SCH ×2 (12:26→21:47)
[2021-03-13] MEDS: Bactroban OINTMENT TP SCH (12:26)
[2021-03-13] MEDS: Requip 0.5 MG PO SCH (17:23)
[2021-03-13] MEDS: Ativan 1 MG PO SCH (21:48)
[2021-03-14 06:36] LABS: Hematocrit 44.1 % (42-50); Hemoglobin 14.8 gm/dl (12.5-18.0); Mean Cell Volume 92.3 fl (78-100); Mean Corpuscular Hgb Concent. 33.6 g/dl (32-36); Mean Platelet Volume 9.6 fl (7.5-11.0); Platelet Count 425 K/mm3 (150-450); Red Blood Count 4.78 M/mm3 (4.1-5.6); Red Cell Distribution Width 14.2 % (11.5-14.0); White Blood Count 20.7 K/mm3 (4.0-10.5)
[2021-03-14 06:50] LABS: INR 1.55 (0.8-3.0); PROTIME 18.3 SECONDS (9.4-12.5)
[2021-03-14 07:04] LABS: ALBUMIN 3.1 g/dL (3.5-5.0); ALKALINE PHOSPHATASE 59 U/L (38-126); ANION GAP 8.6 MEQ/L (5-15); BLOOD UREA NITROGEN 26 mg/dL (9-20); CHLORIDE 108 mmol/L (98-107); Carbon Dioxide 23 mmol/L (22-30); Creatinine 1 0.79 mg/dL (0.66-1.25); EST GLOMERULAR FILTRATION RATE > 60.0 ML/MIN; Glucose 100 mg/dL (74-106); NT PRO BNP 393 pg/mL (0-900); PROCALCITONIN 0.052 ng/mL (0.030-0.080); Potassium 4.1 mmol/L (3.5-5.1); SGOT/AST 25 U/L (17-59); SGPT/ALT 25 U/L (0-50); SODIUM 135 mmol/L (137-145); Total Protein 5.7 g/dL (6.3-8.2)
[2021-03-14] MEDS: Abilify 10 MG PO SCH (09:45)
[2021-03-14] MEDS: CLARITIN 10 MG PO SCH (09:45)
[2021-03-14] MEDS: Effexor XR 75 MG PO SCH (09:45)
[2021-03-14] MEDS: Cardizem CD 120 MG PO SCH (09:45)
[2021-03-14] MEDS: DECADRON 10MG INJ. IV SCH (09:46)
[2021-03-14] MEDS: Flomax 0.4 MG PO SCH (09:46)
[2021-03-14] MEDS: lamICTAL 100MG TABLET PO SCH (09:46)
[2021-03-14] MEDS: Lanoxin 0.125MG TABLET PO SCH (09:47)
[2021-03-14] MEDS: Levofloxacin 500 MG Tablet PO SCH (09:50)
[2021-03-14] MEDS: Levofloxacin 250MG Tablet PO SCH (09:50)
[2021-03-14] MEDS: Mucinex 600MG ER Tabs PO SCH (09:50)
[2021-03-14] MEDS: Zestril 20 MG PO SCH (09:51)
[2021-03-14] MEDS: Tricor 145 MG PO SCH (09:51)
[2021-03-14] MEDS: Protonix 40MG Tablet PO SCH (09:51)
[2021-03-14] MEDS: OLUMIANT PO SCH (09:51)
[2021-03-14] MEDS: Bactroban OINTMENT TP SCH (09:52)
[2021-03-14 11:55] VITALS: BP 100/70
[2021-03-14] MEDS: Ativan 1 MG PO PRN (12:10)
[2021-03-14 13:13] VITALS: PULSE 76; O2SAT 95
--- NOTE | 2021-03-16 14:02 | DS ---
DISCHARGE DIAGNOSES: 1) COVID PNEUMONIA. 2) ACUTE ATRIAL FIBRILLATION. HOSPITAL COURSE: He had the first admission about 03/04/2021 with diagnosis of COVID pneumonia. He improved markedly from that time and went home and atrial fibrillation and his pneumonia advanced to bilateral and required 3 liters of oxygen. In the first few days, he actually deteriorated requiring large amounts of IV medicines to control his rate and also up to 5 liters of oxygen to keep his O2's up in the 90's. Over the last three days, he has been stable at 3 liters, walking around the room, eating, feeling great and demanding to go home. We have not been able to convert him from atrial fibrillation. He went from the 80's. He's been on digoxin 0.25 and he has been on heparin drip. We added some adenosine, metoprolol and he was on a Cardizem drip for a while. Presently, he is on Cardizem 240 and will put him on Pradaxa 150 b.i.d. starting today since his INR has gone down to almost normal and Cardizem 240. He is to see his physician in one week. He should not be infectious at that time. He is to stay in the house and isolate. His with COVID but she is much better. He is to continue on Abilify 10, Fenofibrate 145, hydrocodone 10 every 4 hours PRN pain, Lamictal 100 b.i.d., lisinopril 20 b.i.d., Claritin if needed. He not on Ritalin. He is not on metoprolol. Protonix 40 if needed. He is not on prednisone. He is on Requip for restless leg, Flomax for benign prostatic hypertrophy. Medicines will be Cardizem 240 q.d., Pradaxa 150 b.i.d., Lanoxin 0.25. O2 at 3 liters. His is with him. He is to call if oxygen drops or if his rate goes above 140. PHYSICAL EXAMINATION: CHEST: Clear. CVS: Heart sounds are normal. LAB DATA AND TESTS: His D-dimer went up as high as 700. His creatinine remained normal. Electrolytes have been okay. Chest x-ray showed moderate diffuse bilateral patchy airspace disease, heart not enlarged on 03/10/2021. PROGNOSIS: His prognosis is felt to be good.
== END 2021-03-14 13:30 | disposition home or self-care (01) | DRG 177 ==
LOC: ED 08:28 → MED SURG 14:11
PROVIDERS: ADMIT Family Medicine; ATTEND Family Medicine
DX: U07.1 COVID-19 (principal); J12.82 Pneumonia due to coronavirus disease 2019; J96.91 Respiratory failure, unspecified with hypoxia; I48.91 Unspecified atrial fibrillation; E78.00 Pure hypercholesterolemia, unspecified; I10 Essential (primary) hypertension; M25.559 Pain in unspecified hip; Z79.899 Other long term (current) drug therapy; Z79.01 Long term (current) use of anticoagulants
CPT/HCPCS: 36000; 36415; 71045; 71260; 80053; 80162; 83605; 83735; 83880; 84145; 84484; 85025; 85027; 85379; 85610; 85730; 93005; 93306; 94762; 96374; 99285; J0153; J0360; J1100; J1160; J1644; J2060; J2405; A9270-GY

== ENCOUNTER 2022-12-05 04:24 | Observation (INO) | payer BC ==
[2022-12-05] MEDS ORDERED: Sodium Chloride 0.9% 1000 ML 1,000 ML IV STA (04:53)
[2022-12-05] MEDS ORDERED: Sodium Chloride 0.9% 1000 ML 1,000 ML ONE (04:59)
--- NOTE | 2022-12-05 04:59 | ERPHSYRPT ---
- History of Present Illness Source: patient, family Exam Limitations: no limitations Patient Subjective Stated Complaint: shortness of breath, cough Triage Nursing Assessment: pt brought back in wheelchair via this nurse. Pt c/o shortness of breath. Pt was [facility] in [facility] on 11/30/22 for congestion. Pt has non-prod cough, fatigue, headache, low grade fever at home, congestion and shortness of breath. Lungs are coarse on expiration anteriorly and posteriorly bilat. Lungs are diminished on ant and post bilat. An occasional wheeze is noted without auscultation. O2 sats upon arrival to ER were 95% on rm air and holding. Timing/Duration: day(s) (2) Activities at Onset: sleep Severity of Dyspnea-Max: severe Severity of Dyspnea-Current: moderate Possible Cause: occasional episodes Modifying Factors: Worsens With: lying down Associated Symptoms: constant, cough, wheezing, No chest pain/discomfort, No edema, No fever, No insomnia, No loss of appetite, No lightheadedness, No weakness, No ankle swelling, No hemoptysis, No calf pain, No dizziness, No heaviness, No heart racing, No lightheadedness, No leg swelling, No muscle spasms hands, No painful breathing, No productive cough, No tingling face, No tingling hands Hx Tetanus, Diphtheria Vaccination/Date Given: Yes Hx Influenza Vaccination/Date Given: No Hx Pneumococcal Vaccination/Date Given: No <OLAMIDE KINGSTON - Last Filed: 12/05/22 06:42> <COY DUKES - Last Filed: 12/05/22 09:16> - History of Present Illness Time Seen by Provider: 12/05/22 04:35 Physician History: Patient is a 57 year old male with a history of atrial fibrillation who is on Eliquis and Aspirin 81mg daily who comes into the emergency department with worsening shortness of breath. He has not been feeling well over the past two days. He was seen at an urgent care for sinus issues from allergies 5 days ago after having symptoms for 8 days and he is status post two weeks of having a ureter stent placed at [facility] in [place], [place]. (OLAMIDE KINGSTON) Allergies/Adverse Reactions: sulfamethoxazole [From Bactrim] Allergy (Intermediate, Verified 12/05/22 04:47) Rash trimethoprim [From Bactrim] Allergy (Intermediate, Verified 12/05/22 04:47) Rash Home Medications: Ropinirole HCl [Requip] 1 mg PO BID 11/25/15 [History] Aripiprazole 10 mg [Abilify 10 MG] 5 mg PO DAILY 01/13/17 [History] Fenofibrate,Micronized 145 mg* [Tricor 145 MG] 145 mg PO DAILY 01/13/17 [History] Tamsulosin HCl 0.4 mg [Flomax 0.4 MG] 0.4 mg PO DAILY 01/13/17 [History] Venlafaxine HCl ER 75 mg [Effexor XR 75 MG] 75 mg PO DAILY 01/13/17 [History] ALPRAZolam [Alprazolam] 0.5 mg PO TID 12/05/22 [History] Apixaban [Eliquis] 5 mg PO BID 12/05/22 [History] Aspirin 81 gm Chew [Baby Aspirin 81 mg Chew] 1 tab PO DAILY 12/05/22 [History] Carvedilol 3.125 mg [Coreg 3.125 MG] 1 tab PO BID 12/05/22 [History] Celecoxib 200 mg PO DAILY 12/05/22 [History] Cetirizine HCl [All Day Allergy Relief] 10 mg PO DAILY 12/05/22 [History] Cholecalciferol (Vitamin D3) [Vitamin D] 4,000 iu PO DAILY 12/05/22 [History] Ergocalciferol (Vitamin D2) [Vitamin D2] 1 tab PO WEEKLY 12/05/22 [History] Famotidine 20 mg PO BID 12/05/22 [History] Gabapentin 100 mg PO BID 12/05/22 [History] Hydralazine HCl 25 mg PO TID PRN PRN 12/05/22 [History] Lisinopril 20 mg [Zestril 20 MG] 20 mg PO BID 12/05/22 [History] Metaxalone 1 tab PO DAILY 12/05/22 [History] Multivitamin [Multi-Vitamin Daily] 1 each PO DAILY 12/05/22 [History] Rosuvastatin Calcium 10 mg PO HS 12/05/22 [History] Testosterone Cypionate 200 mg IM UD 12/05/22 [History] Vitamin E Mixed [Vitamin E] 400 unit PO DAILY 12/05/22 [History] dilTIAZem HCL [Tiadylt ER] 240 mg PO DAILY 12/05/22 [History] Travel Risk - International Travel Have you traveled outside of the country in past 3 weeks: No - Coronavirus Screening Symptoms: Fever, Cough: New Onset, Shortness of Breath, Loss of Taste or Smell, Headaches/Body Aches/Fatigue Close contact with a COVID-19 positive Pt in past 14-21 Days: No - Vaccine Status Have you recieved a Covid-19 vaccination: No <OLAMIDE KINGSTON - Last Filed: 12/05/22 06:42> - Review of Systems Constitutional: Fatigue, Malaise, Weakness, No Fever, No Chills Eyes: No Eye Pain, No Vision Changes Ears, Nose, & Throat: No Nose Pain, No Nose Congestion, No Painful Swallowing Respiratory: Cough, Dyspnea Cardiac: No Chest Pain, No Edema, No Syncope Abdominal/Gastrointestinal: No Abdominal Pain, No Nausea, No Vomiting, No Diarrhea Genitourinary Symptoms: Hematuria, No Dysuria, No Flank Pain Musculoskeletal: No Back Pain, No Neck Pain Skin: No Rash Neurological: Headache, No Dizziness, No Focal Weakness, No Sensory Changes Psychological: No Symptoms Endocrine: No Polydipsia Hematologic/Lymphatic: No Easy Bleeding, No Easy Bruising All Other Systems: Reviewed and Negative <OLAMIDE KINGSTON - Last Filed: 12/05/22 06:42> - Past Medical History Pertinent Past Medical History: Yes Neurological History: No Pertinent History ENT History: No Pertinent History Cardiac History: Arrhythmia, High Cholesterol, Hypertension Respiratory History: Pneumonia Endocrine Medical History: No Pertinent History Musculoskeletal History: Arthritis, Degenerative Disk Disease GI Medical History: Gallbladder Disease, Irritable Bowel History: No Pertinent History Psycho-Social History: No Pertinent History Male Reproductive Disorders: Other Other Medical History: AMPUTATION OF LEFT FINGERS, C5 fx with C4,5,6 bone graph. restricted uterer. hx Covid in 2019 - Past Surgical History Past Surgical History: Yes Neuro Surgical History: No Pertinent History Cardiac: No Pertinent History Respiratory: No Pertinent History Gastrointestinal: Cholecystectomy, Hernia Repair Genitourinary: Other Musculoskeletal: No Pertinent History, Orthopedic Surgery, Amputation Male Surgical History: Other Other Surgical History: neck surgery 1985 and 2000 C 4,5,6 bone graph, T1 bone shaving. Left finger amputation with mulitple skin graphs from left thigh to [place] d. Ureteral stent, lt knee replacement - Social History Smoking Status: Never smoker Exposure to second hand smoke: Yes Drug Use: none Patient Lives Alone: No Significant Family History: no pertinent family hx <OLAMIDE KINGSTON - Last Filed: 12/05/22 06:42> - Physical Exam General Appearance: no apparent distress, alert Eye Exam: PERRL/EOMI, eyes nml inspection, No scleral icterus Ears, Nose, Throat Exam: normal ENT inspection Neck Exam: normal inspection, non-tender, supple, No lymphadenopathy (R), No lymphadenopathy (L) Respiratory Exam: airway intact, wheezing, No respiratory distress, No accessory muscle use, No crackles/rales, No rhonchi, No stridor Cardiovascular/Chest Exam: normal heart sounds, normal peripheral pulses, tachycardia, irregular, No edema, No JVD Abdominal/Gastrointestinal Exam: soft, normal bowel sounds, No tenderness, No distention, No mass, No rebound Extremity Exam: non-tender, normal range of motion, normal inspection, no calf tenderness, no pedal edema Neurologic Exam: alert, oriented x 3, cooperative, doughnut maker II-XII nml as tested, sensation nml, No motor deficits Skin Exam: normal color, warm, No dry, No rash, No petechiae, No jaundice, No cyanosis Lymphatic Exam: No adenopathy SpO2 Interpretation: normal SpO2: 93 O2 Delivery: Room Air <OLAMIDE KINGSTON - Last Filed: 12/05/22 06:42> - Nursing Vital Signs Nursing Vital Signs: Initial Vital Signs Temperature 97.5 F 12/05/22 04:25 Pulse Rate 122 H 12/05/22 04:25 Respiratory Rate 28 H 12/05/22 04:25 Blood Pressure 151/109 12/05/22 04:25 O2 Sat by Pulse Oximetry 95 12/05/22 04:25 Pain Scale Pain Intensity 0 - Course Nursing assessment & vital signs reviewed: Yes EKG Interpreted by Me: RATE (134), A-fib, NORMAL AXIS, NORMAL INTERVALS, NORMAL ST-T, Other (Atrial fibrillation with RVR; no significant change from 03/04/2021) - Radiology Exams Chest X-ray Interpretation: Interpreted by me, Reviewed by me, No Pneumonia, No Pneumothorax, Other (Increased interstitial edema) <OLAMIDE KINGSTON - Last Filed: 12/05/22 06:42> Ordered Tests: Active Orders 24 hr Category Date Time Status Income Tax Return Preparer STAT Care 12/05/22 04:54 Active IV Insertion STAT Care 12/05/22 04:53 Active ABDOMEN AND PELVIS W CONTRAST [CT] Stat Exams 12/05/22 07:04 Completed CHEST 1 VIEW (PORTABLE) Stat Exams 12/05/22 04:54 Completed CHEST WITH CONTRAST [CT] Stat Exams 12/05/22 07:04 Completed BLOOD CULTURE Stat Lab 12/05/22 05:54 Received CBC W DIFF Stat Lab 12/05/22 05:30 Completed CMP Stat Lab 12/05/22 05:30 Completed CULTURE,URINE Stat Lab 12/05/22 06:37 Received LIPASE Stat Lab 12/05/22 05:30 Completed Lactic Acid Stat Lab 12/05/22 05:02 Completed MAGNESIUM Stat Lab 12/05/22 05:30 Completed NT PRO BNPII Stat Lab 12/05/22 05:32 Completed PROCALCITONIN Stat Lab 12/05/22 05:30 Completed PROTIME WITH INR Stat Lab 12/05/22 05:30 Completed TROPONIN Q4H Lab 12/05/22 05:32 Completed TROPONIN Q4H Lab 12/05/22 09:00 Ordered TROPONIN Q4H Lab 12/05/22 13:00 Ordered UA W/RFX UR CULTURE Stat Lab 12/05/22 06:37 Completed VENOUS BLOOD GAS Stat Lab 12/05/22 05:02 Completed Respiratory Therapy Assessment DAILY RT 12/05/22 07:13 Completed Transfer Order Routine Transfer 12/05/22 Ordered Medication Summary Generic Name Dose Route Start Last Admin Trade Name Freq PRN Reason Stop Dose Admin Diltiazem HCl 100 mls @ 5 mls/hr 12/05/22 06:18 12/05/22 06:27 Cardizem Drip 100 Mg/100 Ml D5w IV 01/04/23 06:17 5 mg/hr .Q20H PRN 5 mls/hr HEART RATE/ A-FIB Administration Protocol 5 MG/HR Discontinued Medications Generic Name Dose Route Start Last Admin Trade Name Freq PRN Reason Stop Dose Admin Albuterol/Ipratropium 3 ml 12/05/22 06:18 12/05/22 07:12 Ipratropium/Albuterol Sulfate 3 Ml Ampul.Neb IH 12/05/22 06:19 3 ml STAT ONE Administration Albuterol/Ipratropium Confirm 12/05/22 06:42 Ipratropium/Albuterol Sulfate 3 Ml Ampul.Neb Administered 12/05/22 06:43 Dose 3 ml IH .STK-MED ONE Ceftriaxone Sodium 1,000 mg 12/05/22 07:31 12/05/22 07:38 Ceftriaxone Sodium 1000 Mg Inj Vial IM 12/05/22 07:32 1,000 mg STAT ONE Administration Ceftriaxone Sodium Confirm 12/05/22 07:35 Ceftriaxone Sodium 1000 Mg Inj Vial Administered 12/05/22 07:36 Dose 1,000 mg .ROUTE .STK-MED ONE Diltiazem HCl 10 mg 12/05/22 06:18 12/05/22 06:27 Diltiazem Hcl Iv 5 Mg/Ml Vial IV 12/05/22 06:19 10 mg STAT ONE Administration Diltiazem HCl Confirm 12/05/22 06:24 Diltiazem Hcl Iv 5 Mg/Ml Vial Administered 12/05/22 06:25 Dose 50 mg IV .STK-MED ONE Furosemide 40 mg 12/05/22 06:52 12/05/22 06:55 Furosemide 40 Mg/4 Ml Vial IV 12/05/22 06:53 40 mg STAT ONE Administration Furosemide Confirm 12/05/22 06:54 Furosemide 40 Mg/4 Ml Vial Administered 12/05/22 06:55 Dose 40 mg .ROUTE .STK-MED ONE Sodium Chloride 1,000 mls @ 999 mls/hr 12/05/22 04:53 12/05/22 05:18 Sodium Chloride 0.9% 1000 Ml IV 12/05/22 05:53 0 mls/hr .Q1H1M STA Infusion Sodium Chloride Confirm 12/05/22 04:59 Sodium Chloride 0.9% 1000 Ml Administered 12/05/22 05:00 Dose 1,000 mls @ ud .ROUTE .STK-MED ONE Ceftriaxone Sodium/Dextrose 1 g in 50 mls @ 100 mls/hr 12/05/22 07:00 12/05/22 07:30 Rocephin 1 Gm-D5w 50 Ml Bag IV 12/05/22 07:29 Not Given STAT STA Lidocaine HCl Confirm 12/05/22 07:35 Lidocaine Hcl 1% 20 Ml Mdv 20 Ml Ml Administered 12/05/22 07:36 Dose 3 ml .ROUTE .STK-MED ONE Metoprolol Tartrate 5 mg 12/05/22 05:14 12/05/22 05:17 Metoprolol Tartrate 5 Mg/5 Ml Vial IV 12/05/22 05:15 5 mg STAT ONE Administration Metoprolol Tartrate Confirm 12/05/22 05:16 Metoprolol Tartrate 5 Mg/5 Ml Vial Administered 12/05/22 05:17 Dose 5 mg IV .STK-MED ONE Morphine Sulfate 4 mg 12/05/22 06:18 12/05/22 06:27 Morphine Sulfate 4 Mg/Ml Injection IV 12/05/22 06:19 4 mg STAT ONE Administration Morphine Sulfate Confirm 12/05/22 06:23 Morphine Sulfate 4 Mg/Ml Injection Administered 12/05/22 06:24 Dose 4 mg .ROUTE .STK-MED ONE Lab/Rad Data: Laboratory Result Diagrams 12/05/22 05:30 12/05/22 05:30 Laboratory Results 12/05/22 12/05/22 12/05/22 Range/Units Unknown 06:37 05:32 WBC (4.0-10.5) x10^3/uL RBC (4.1-5.6) x10^6/uL Hgb (12.5-18.0) g/dL Hct (42-50) % MCV (78-100) fL MCH (26-32) pg MCHC (32-36) g/dL RDW (11.5-14.0) % Plt Count (150-450) x10^3/uL MPV (7.5-11.0) fL Gran % (36.0-66.0) % Immature Gran % (Auto) (0.00-0.4) % Nucleat RBC Rel Count (0.00-0.1) % Eos # (Auto) (0-0.5) x10^3/uL Immature Gran # (Auto) (0.00-0.03) x10^3u/L Absolute Lymphs (auto) (1.0-4.6) x10^3/uL Absolute Monos (auto) (0.0-1.3) x10^3/uL Absolute Nucleated RBC (0.00-0.01) x10^3u/L Lymphocytes % (24.0-44.0) % Monocytes % (0.0-12.0) % Eosinophils % (0.00-5.0) % Basophils % (0.0-0.4) % Absolute Granulocytes (1.4-6.9) x10^3/uL Basophils # (0-0.4) x10^3/uL PT (9.4-12.5) SECONDS INR (0.8-3.0) pO2/FiO2 Ratio % VBG pH (7.32-7.42) VBG pCO2 at Pat Temp (42-55) mm/Hg VBG pO2 at Pat Temp (25-40) mm/Hg VBG HCO3 (22-28) meq/L VBG O2 Sat (Yara) (95-100) VBG Base Excess (-2.0-2.0) VBG Hemoglobin VBG Carboxyhemoglobin (0.0-6.9) % T HGB POC Potassium (3.5-5.1) Sodium (137-145) mmol/L Potassium (3.5-5.1) mmol/L Chloride (98-107) mmol/L Carbon Dioxide (22-30) mmol/L Anion Gap (5-15) MEQ/L BUN (9-20) mg/dL Creatinine (0.66-1.25) mg/dL Estimated GFR ML/MIN Glucose (74-106) mg/dL Lactic Acid (0.4-2.0) Calcium (8.4-10.2) mg/dL Magnesium (1.6-2.3) mg/dL Total Bilirubin (0.2-1.3) mg/dL AST (17-59) U/L ALT (0-50) U/L Alkaline Phosphatase (38-126) U/L Troponin I 0.015 (0.000-0.034) ng/mL NT-Pro-B Natriuret Pep 4100 (<300) pg/mL Serum Total Protein (6.3-8.2) g/dL Albumin (3.5-5.0) g/dL Lipase (23-300) U/L Procalcitonin (0.030-0.080) ng/mL Urine Color Red A (Yellow) Urine Appearance Turbid A (Clear) Urine pH 6.5 (4.6-8.0) Ur Specific [place] 1.015 (1.005-1.030) Urine Protein 100 A (Negative) Urine Glucose (UA) Negative (Negative) mg/dL Urine Ketones Negative (Negative) Urine Blood Large A (Negative) Urine Nitrite Positive A (Negative) Urine Bilirubin Small A (Negative) Urine Urobilinogen 0.2 (0.2) mg/dL Ur Leukocyte Esterase Large A (Negative) U Hyaline Cast (Auto) NONE SEEN (0-2) /LPF Urine Microscopic RBC >100 A (0-5) /HPF Urine Microscopic WBC 21-50 A (0-5) /HPF Ur Epithelial Cells None Seen (None Seen) /HPF Urine Bacteria Rare A (None Seen) /HPF Urine Culture Reflexed YES (NO) Influenza Type A Ag NEGATIVE (NEGATIVE) Influenza Type B Ag NEGATIVE (NEGATIVE) RSV (PCR) NEGATIVE (NEGATIVE) SARS-CoV-2 (PCR) NEGATIVE (NEGATIVE) 12/05/22 12/05/22 12/05/22 Range/Units 05:30 05:30 05:30 WBC (4.0-10.5) x10^3/uL RBC (4.1-5.6) x10^6/uL Hgb (12.5-18.0) g/dL Hct (42-50) % MCV (78-100) fL MCH (26-32) pg MCHC (32-36) g/dL RDW (11.5-14.0) % Plt Count (150-450) x10^3/uL MPV (7.5-11.0) fL Gran % (36.0-66.0) % Immature Gran % (Auto) (0.00-0.4) % Nucleat RBC Rel Count (0.00-0.1) % Eos # (Auto) (0-0.5) x10^3/uL Immature Gran # (Auto) (0.00-0.03) x10^3u/L Absolute Lymphs (auto) (1.0-4.6) x10^3/uL Absolute Monos (auto) (0.0-1.3) x10^3/uL Absolute Nucleated RBC (0.00-0.01) x10^3u/L Lymphocytes % (24.0-44.0) % Monocytes % (0.0-12.0) % Eosinophils % (0.00-5.0) % Basophils % (0.0-0.4) % Absolute Granulocytes (1.4-6.9) x10^3/uL Basophils # (0-0.4) x10^3/uL PT 10.4 (9.4-12.5) SECONDS INR 0.95 (0.8-3.0) pO2/FiO2 Ratio % VBG pH (7.32-7.42) VBG pCO2 at Pat Temp (42-55) mm/Hg VBG pO2 at Pat Temp (25-40) mm/Hg VBG HCO3 (22-28) meq/L VBG O2 Sat (Yara) (95-100) VBG Base Excess (-2.0-2.0) VBG Hemoglobin VBG Carboxyhemoglobin (0.0-6.9) % T HGB POC Potassium (3.5-5.1) Sodium 142 (137-145) mmol/L Potassium 3.8 (3.5-5.1) mmol/L Chloride 111 H (98-107) mmol/L Carbon Dioxide 24 (22-30) mmol/L Anion Gap 10.8 (5-15) MEQ/L BUN 13 (9-20) mg/dL Creatinine 0.73 (0.66-1.25) mg/dL Estimated GFR > 60.0 ML/MIN Glucose 92 (74-106) mg/dL Lactic Acid (0.4-2.0) Calcium 8.8 (8.4-10.2) mg/dL Magnesium 1.6 (1.6-2.3) mg/dL Total Bilirubin 0.40 (0.2-1.3) mg/dL AST 27 (17-59) U/L ALT 29 (0-50) U/L Alkaline Phosphatase 53 (38-126) U/L Troponin I (0.000-0.034) ng/mL NT-Pro-B Natriuret Pep (<300) pg/mL Serum Total Protein 5.6 L (6.3-8.2) g/dL Albumin 3.3 L (3.5-5.0) g/dL Lipase 111 (23-300) U/L Procalcitonin 0.074 (0.030-0.080) ng/mL Urine Color (Yellow) Urine Appearance (Clear) Urine pH (4.6-8.0) Ur Specific [place] (1.005-1.030) Urine Protein (Negative) Urine Glucose (UA) (Negative) mg/dL Urine Ketones (Negative) Urine Blood (Negative) Urine Nitrite (Negative) Urine Bilirubin (Negative) Urine Urobilinogen (0.2) mg/dL Ur Leukocyte Esterase (Negative) U Hyaline Cast (Auto) (0-2) /LPF Urine Microscopic RBC (0-5) /HPF Urine Microscopic WBC (0-5) /HPF Ur Epithelial Cells (None Seen) /HPF Urine Bacteria (None Seen) /HPF Urine Culture Reflexed (NO) Influenza Type A Ag (NEGATIVE) Influenza Type B Ag (NEGATIVE) RSV (PCR) (NEGATIVE) SARS-CoV-2 (PCR) (NEGATIVE) 12/05/22 12/05/22 12/05/22 Range/Units 05:30 05:02 05:02 WBC 11.3 H (4.0-10.5) x10^3/uL RBC 4.07 L (4.1-5.6) x10^6/uL Hgb 12.7 (12.5-18.0) g/dL Hct 38.8 L (42-50) % MCV 95.3 (78-100) fL MCH 31.2 (26-32) pg MCHC 32.7 (32-36) g/dL RDW 15.0 H (11.5-14.0) % Plt Count 368 (150-450) x10^3/uL MPV 10.2 (7.5-11.0) fL Gran % 80.4 H (36.0-66.0) % Immature Gran % (Auto) 0.7 H (0.00-0.4) % Nucleat RBC Rel Count 0.0 (0.00-0.1) % Eos # (Auto) 0.22 (0-0.5) x10^3/uL Immature Gran # (Auto) 0.08 H (0.00-0.03) x10^3u/L Absolute Lymphs (auto) 1.34 (1.0-4.6) x10^3/uL Absolute Monos (auto) 0.52 (0.0-1.3) x10^3/uL Absolute Nucleated RBC 0.00 (0.00-0.01) x10^3u/L Lymphocytes % 11.9 L (24.0-44.0) % Monocytes % 4.6 (0.0-12.0) % Eosinophils % 2.0 (0.00-5.0) % Basophils % 0.4 (0.0-0.4) % Absolute Granulocytes 9.04 H (1.4-6.9) x10^3/uL Basophils # 0.05 (0-0.4) x10^3/uL PT (9.4-12.5) SECONDS INR (0.8-3.0) pO2/FiO2 Ratio 21.0 % VBG pH 7.42 (7.32-7.42) VBG pCO2 at Pat Temp 43 (42-55) mm/Hg VBG pO2 at Pat Temp 33 (25-40) mm/Hg VBG HCO3 27.9 (22-28) meq/L VBG O2 Sat (Yara) 54.2 L (95-100) VBG Base Excess 3.0 H (-2.0-2.0) VBG Hemoglobin 13.3 VBG Carboxyhemoglobin 2.4 (0.0-6.9) % T HGB POC Potassium 4.6 (3.5-5.1) Sodium (137-145) mmol/L Potassium (3.5-5.1) mmol/L Chloride (98-107) mmol/L Carbon Dioxide (22-30) mmol/L Anion Gap (5-15) MEQ/L BUN (9-20) mg/dL Creatinine (0.66-1.25) mg/dL Estimated GFR ML/MIN Glucose (74-106) mg/dL Lactic Acid 1.7 (0.4-2.0) Calcium (8.4-10.2) mg/dL Magnesium (1.6-2.3) mg/dL Total Bilirubin (0.2-1.3) mg/dL AST (17-59) U/L ALT (0-50) U/L Alkaline Phosphatase (38-126) U/L Troponin I (0.000-0.034) ng/mL NT-Pro-B Natriuret Pep (<300) pg/mL Serum Total Protein (6.3-8.2) g/dL Albumin (3.5-5.0) g/dL Lipase (23-300) U/L Procalcitonin (0.030-0.080) ng/mL Urine Color (Yellow) Urine Appearance (Clear) Urine pH (4.6-8.0) Ur Specific [place] (1.005-1.030) Urine Protein (Negative) Urine Glucose (UA) (Negative) mg/dL Urine Ketones (Negative) Urine Blood (Negative) Urine Nitrite (Negative) Urine Bilirubin (Negative) Urine Urobilinogen (0.2) mg/dL Ur Leukocyte Esterase (Negative) U Hyaline Cast (Auto) (0-2) /LPF Urine Microscopic RBC (0-5) /HPF Urine Microscopic WBC (0-5) /HPF Ur Epithelial Cells (None Seen) /HPF Urine Bacteria (None Seen) /HPF Urine Culture Reflexed (NO) Influenza Type A Ag (NEGATIVE) Influenza Type B Ag (NEGATIVE) RSV (PCR) (NEGATIVE) SARS-CoV-2 (PCR) (NEGATIVE) - Progress Progress: improved, re-examined Air Movement: good Blood Culture(s) Obtained: Yes Counseled pt/family regarding: lab results, diagnosis, need for follow-up, rad results <OLAMIDE KINGSTON KWESI - Last Filed: 12/05/22 06:42> <COY DUKES - Last Filed: 12/05/22 09:16> - Progress Progress Note: 12/05/22 06:16 Patient is still not feeling well, has a headache, has a sore throat from a few episodes of coughing and still remains tachycardic on the manager cardiac cath. Will give a DuoNeb treatment, will give a dose of Morphine, will do a cardizem bolus and drip. 12/05/22 06:40 Reviewed with patient and treatment plan and check for response to therapy as well as remaining lab work 12/05/22 06:45 Patient is a 57 year old male who came with worsening dyspnea over the past two days, worse this evening while he was trying to lay down. Patient had an EKG that showed Atrial fibrillation with RVR but no acute changes otherwise, is on Eliquis, and chest x-ray showed some interstitial edema, but better than previous chest x-ray that showed even more diffuse bilateral patchy airspace disease without consolidation/large effusion. Patient's intial venous blood gas showed a normal pH, normal pC02, normal HCO3 and initial lactic acid was normal. Patient had normal CBC other than slightly elevated WBC but less than 12, normal CMP, normal lipase with negative viral swabs for SARS-CoV-2 swab, Flu A, Flu B, and RSV. Patient was started on DuoNeb treatment, Cardizem bolus and drip for rate control for his Afib with RVR and Morphine for body aches/headache relief. Care will be transferred to oncoming emergency department attending, Dr Dukes, to follow-up formal chest x-ray interpretation, remaining labs including troponin and Pro-BNP and check response to therapy. (OLAMIDE KINGSTON) 12/05/22 09:08 Chest x-ray was interpreted by the radiologist and I reviewed the impression. There is groundglass opacities bibasilarly. This is a persistent finding when compared to prior chest x-ray. CT scan of the chest without contrast shows the groundglass opacities present with small bilateral pleural effusions. No definite infiltrate present. CT scan of the abdomen pelvis without contrast shows a right ureteral stent placed with hydronephrosis present. There is no free air under the diaphragm. No free intra-abdominal fluid present. I discussed this patient's past medical history, presenting complaint, work-up results with Dr. Mccoy. Also discussed our intervention in the emergency department. I also reviewed the CT scan of the chest and abdomen and pelvis findings as well as the chest x-ray impression from our radiologist. We will place the patient in the hospital under full admission. He accepts the patient for admission. We will provide the patient with Levaquin intravenously and continue the Cardizem drip. We will repeat labs in the morning. We also provide the patient with Lasix 40 mg IV twice a day. 12/05/22 09:11 (COY DUKES) Medical Desision Making - Independent Historian Additional History obtained from: Spouse - Diagnostic Testing Diagnostic test were ordered, analyzed, and reviewed by me: Yes Radiological Interpretation: Interpreted by me, Reviewed by me - Risk of complications The pt has a mod risk of morbidity or mortality based on: Need for prescription drug management The pt has a high risk of morbidity or mortality based on: Drug therapy requiring intensive monitoring for toxicity, Decision regarding hospitilization or escalation of hosp level of care <OLAMIDE KINGSTON - Last Filed: 12/05/22 06:42> - Departure Critical Care Time: Yes Critical Care Time(excluding separately billable procedures): Critical 30-74 mins <OLAMIDE KINGSTON - Last Filed: 12/05/22 06:42> - Departure Critical Care Time(excluding separately billable procedures): Critical 30-74 mins (45 minutes) <COY DUKES - Last Filed: 12/05/22 09:16> - Departure Clinical Impression: Atrial fibrillation with rapid ventricular response, Acute bronchitis with bronchospasm, Essential hypertension, UTI (urinary tract infection) Dyspnea Qualifiers: Dyspnea type: unspecified Qualified Code(s): R06.00 - Dyspnea, unspecified Condition: Fair Referrals: AMA MORAN NP [Primary Care Provider] - Follow up/PCP as directed
[2022-12-05 05:10] LABS: VBG CARBOXYHEMOGLOBIN 2.4 % T HGB (0.0-6.9); VBG HCO3- 27.9 meq/L (22-28); VBG HEMOGLOBIN 13.3; VBG O2 SATURATION 54.2 (95-100); VBG POTASSIUM 4.6 (3.5-5.1); VBG pH 7.42 (7.32-7.42)
[2022-12-05] MEDS ORDERED: LOPRESSOR INJECTION IV ONE ×2 (05:14→05:16)
[2022-12-05 05:34] LABS: Absolute Neutrophil Ct (ANC) 9.04 x10^3/uL (1.4-6.9); BASOPHIL % 0.4 % (0.0-0.4); Basophil (Absolute #) 0.05 x10^3/uL (0-0.4); Eosinophil (Absolute #) 0.22 x10^3/uL (0-0.5); Hematocrit 38.8 % (42-50); Hemoglobin 12.7 g/dL (12.5-18.0); IMMATURE GRAN # 0.08 x10^3u/L (0.00-0.03); IMMATURE GRAN % 0.7 % (0.00-0.4); Lymphocyte (Absolute #) 1.34 x10^3/uL (1.0-4.6); Lymphocytes % 11.9 % (24.0-44.0); Mean Cell Volume 95.3 fL (78-100); Mean Corpuscular Hemoglobin 31.2 pg (26-32); Mean Corpuscular Hgb Concent. 32.7 g/dL (32-36); Mean Platelet Volume 10.2 fL (7.5-11.0); Monocyte (Absolute #) 0.52 x10^3/uL (0.0-1.3); Monocytes % 4.6 % (0.0-12.0); Neutrophil % 80.4 % (36.0-66.0); Platelet Count 368 x10^3/uL (150-450); Red Blood Count 4.07 x10^6/uL (4.1-5.6); White Blood Count 11.3 x10^3/uL (4.0-10.5)
[2022-12-05 06:15] LABS: INFLUENZA A NEGATIVE (NEGATIVE); INFLUENZA B NEGATIVE (NEGATIVE); RESPIRATORY SYNCTIAL VIRUS NEGATIVE (NEGATIVE); SARS-CoV-2 Xpert Express NEGATIVE (NEGATIVE)
[2022-12-05] MEDS ORDERED: Cardizem IV 50 MG/10 ML IV ONE ×2 (06:18→06:24)
[2022-12-05] MEDS ORDERED: CARDIZEM DRIP 100 MG/100 ML D5W 100 ML IV PRN (06:18)
[2022-12-05] MEDS ORDERED: DUONEB 0.5-3 MG/3 ml Neb IH ONE ×2 (06:18→06:42)
[2022-12-05] MEDS ORDERED: MORPHINE SULFATE 4 MG INJ IV ONE (06:18)
[2022-12-05] MEDS ORDERED: MORPHINE SULFATE 4 MG INJ ONE (06:23)
[2022-12-05 06:24] LABS: INR 0.95 (0.8-3.0); PROTIME 10.4 SECONDS (9.4-12.5)
[2022-12-05 06:26] LABS: ALBUMIN 3.3 g/dL (3.5-5.0); ALKALINE PHOSPHATASE 53 U/L (38-126); ANION GAP 10.8 MEQ/L (5-15); BLOOD UREA NITROGEN 13 mg/dL (9-20); CHLORIDE 111 mmol/L (98-107); Calcium 8.8 mg/dL (8.4-10.2); Carbon Dioxide 24 mmol/L (22-30); Creatinine 1 0.73 mg/dL (0.66-1.25); EST GLOMERULAR FILTRATION RATE > 60.0 ML/MIN; Glucose 92 mg/dL (74-106); LIPASE 111 U/L (23-300); MAGNESIUM 1.6 mg/dL (1.6-2.3); Potassium 3.8 mmol/L (3.5-5.1); SGOT/AST 27 U/L (17-59); SGPT/ALT 29 U/L (0-50); SODIUM 142 mmol/L (137-145); Total Protein 5.6 g/dL (6.3-8.2)
[2022-12-05 06:41] LABS: TROPONIN 0.015 ng/mL (0.000-0.034)
[2022-12-05] MEDS ORDERED: Lasix 40 MG/4 ML IV ONE (06:52)
[2022-12-05] MEDS ORDERED: Lasix 40 MG/4 ML ONE (06:54)
[2022-12-05 06:55] LABS: ADD URINE CULTURE? YES (NO); Appearance Turbid (Clear); Bacteria Rare /HPF (None Seen); Bilirubin Small (Negative); Blood Large (Negative); Epithelial Cells None Seen /HPF (None Seen); Glucose, Urine Negative (Negative); Hyaline Casts NONE SEEN /LPF (0-2); Ketones Negative (Negative); Leukocyte Esterase Large (Negative); Nitrite Positive (Negative); Ph 6.5 (4.6-8.0); Protein,Urine Dip 100 (Negative); RBC >100 /HPF (0-5); Specific Gravity 1.015 (1.005-1.030); Urobilinogen 0.2 mg/dL (0.2); WBC 21-50 /HPF (0-5)
[2022-12-05] MEDS ORDERED: ROCEPHIN 1 Gm-D5w 50 ml Bag** 1 G/50 ML IVPB IV STA (07:00)
[2022-12-05] MEDS ORDERED: Rocephin 1000 MG INJ IM ONE (07:31)
[2022-12-05] MEDS ORDERED: Rocephin 1000 MG INJ ONE (07:35)
[2022-12-05] MEDS ORDERED: XYLOCAINE 1% HCL 20 ML MDV ONE (07:35)
--- NOTE | 2022-12-05 08:52 | XRAY ---
Indication: Cough. Abnormal chest radiograph. Multiple contiguous axial images obtained through the chest using 100 cc Isovue 370 contrast. Comparison: March 07, 2021 Lungs again demonstrates diffuse bilateral groundglass airspace disease. New small bilateral effusions. Heart not enlarged. Aorta is normal in course and caliber. 1.2 x 2.4 cm subcarinal adenopathy presumed reactive. Bony thorax intact again with mild degenerative changes throughout the spine. CT abdomen/pelvis reported separately. Impression: Recurrent diffuse bilateral ground glass airspace disease with new small bilateral effusions. Prominent subcarinal node presumed reactive. Rule out Covid 19 pneumonia.
--- NOTE | 2022-12-05 08:58 | XRAY ---
Indication: Dyspnea. Comparison: March 10, 2021 Portable chest again demonstrates diffuse bilateral patchy airspace disease without consolidation/large effusion. Heart not enlarged. Bony thorax intact.
--- NOTE | 2022-12-05 08:58 | XRAY ---
Indication: UTI. Multiple contiguous axial images obtained through the abdomen and pelvis using 100 cc Isovue 370 contrast. Comparison: None CT chest reported separately. Noncontrasted stomach and bowel loops appear nonobstructed with normal appendix. Previous cholecystectomy. Right double-J ureteral stent catheter in good position. Moderate/significant right hydronephrosis with little to no excretion questioning ureteral catheter patency. Right ureter also demonstrates stranding suggesting ureteritis. Right kidney demonstrates a few tiny cysts, largest 7 mm. No free fluid/air. Remaining liver, pancreas, spleen, adrenal glands, left kidney, left ureter, bladder, and aorta are unremarkable. No pathologic retroperitoneal lymphadenopathy. Osseous structures intact with mild degenerative changes throughout the thoracolumbar spine. Impression: Right double-J ureteral stent catheter in situ. Query catheter patency as there is hydronephrosis with little to no excretion and periureteral stranding. Incidental right renal cysts.
[2022-12-05] MEDS ORDERED: Zofran 4 MG/2 ML VIAL IV PRN (09:45)
[2022-12-05] MEDS ORDERED: TYLENOL 325 MG PO PRN (09:45)
[2022-12-05] MEDS ORDERED: Sodium Chloride 0.9% 1000 ML 1,000 ML IV SCH (09:45)
[2022-12-05] MEDS ORDERED: ELIQUIS 2.5 MG TABLET PO SCH (10:00)
[2022-12-05 11:24] VITALS: TEMP 97.7
[2022-12-05 11:49] VITALS: O2SAT 94
[2022-12-05] MEDS ORDERED: Cardizem 30 MG PO ONE (12:06)
[2022-12-05] MEDS ORDERED: NORCO 5/325 MG PO ONE (12:07)
--- NOTE | 2022-12-05 12:15 | PCM.SSS ---
History of Present Illness - Chief Complaint Chief Complaint: A-fib with RVY; SOB; UTI; CHF Date: 12/05/22 History of Present Illness: is a 57 year old male with hx of IBS, restless legs, anxiety, chronic pain, anxiety, depression, peripheral neuropathy, A- Fib ( on Eliquis) since COVID in February of 2023. Pt reports a few weeks ago he was at [facility] and then tx to [facility] in [place] for the need of a ureter stent. He came in to the ER today with sxs of SOB, rapid heart rate, LLQ and RLQ abd pain, hematuria, and generalized body pain. He has not been feeling well for over 2 days. Sxs are constant and nothing makes him him feel better or worse. He thought he had COVID as sxs were similar to when he had this in February of this year. Cardizem gtt started in ER for new onset A-Fib RVR. HR 100-150's. Not requiring oxygen at this time. feels his urine is clearing up as it has been bright red since stent placed and now it is orange since coming to the hospital. Labs show he has a UTI and Rocphin IV gave in ER. CT abd/ pelvis shows Right double-J ureteral stent catheter in situ. Query catheter patency as there is hydronephrosis with little to no excretion and periureteral stranding. Incidental right renal cysts. CT of chest shows Recurrent diffuse bilateral ground glass airspace disease with new small bilateral effusions. Prominent subcarinal node presumed reactive. Rule out Covid 19 pneumonia. Covid test was negative in ER. He explains his pain meds of Celebrex and gabapentin were not taken today and they have not been helpful with his increased pain level. He does take xanax at night. Discussed CT results with Dr. Blackmon and that there is a concern for need for tx. Dr. Blackmon agreed with this as we do not have urology at this hospital. Discussed with pt and . Pt refused to be transferred by ambulance because in the past it was a bad experience causing increased pain, and a large cost. agreeable to taking pt to [facility] in [place] as this is where stent was placed. Discussed risk of private car. Cardizem gtt stopped at and one time dose of 60mg Cardizem gave. one time dose of [place] 5/325mg PO gave for pain. Discussed not to take Xanax with this medication. Discussed risk in detail including respiratory depression and even , - Review of Systems Constitutional: No Fever, No Chills Eyes: No Symptoms Ears, Nose, & Throat: No Symptoms Respiratory: No Cough, No Short Of Breath Cardiac: Orthopnea, Other (rapid heart rate), No Chest Pain, No Edema, No Syncope Abdominal/Gastrointestinal: Abdominal Pain (LLQ, RLQ), No Nausea, No Vomiting, No Diarrhea Genitourinary Symptoms: No Dysuria Musculoskeletal: No Back Pain, No Neck Pain Skin: No Rash Neurological: No Dizziness, No Focal Weakness, No Sensory Changes Psychological: No Symptoms, Anxiety Endocrine: No Symptoms Hematologic/Lymphatic: No Symptoms Immunological/Allergic: No Symptoms Medications & Allergies Home Medications: Home Medication List Ropinirole HCl [Requip] 1 mg PO BID 11/25/15 [History Confirmed 12/05/22] Aripiprazole 10 mg [Abilify 10 MG] 5 mg PO DAILY 01/13/17 [History Co nfirmed 12/05/22] Fenofibrate,Micronized 145 mg* [Tricor 145 MG] 145 mg PO DAILY 01/13/17 [History Confirmed 12/05/22] Tamsulosin HCl 0.4 mg [Flomax 0.4 MG] 0.4 mg PO DAILY 01/13/17 [History Confirmed 12/05/22] Venlafaxine HCl ER 75 mg [Effexor XR 75 MG] 75 mg PO DAILY 01/13/17 [Histo ry Confirmed 12/05/22] ALPRAZolam [Alprazolam] 0.5 mg PO TID 12/05/22 [History Confirmed 12/05/22] Apixaban [Eliquis] 5 mg PO BID 12/05/22 [History Confirmed 12/05/22] Aspirin 81 gm Chew [Baby Aspirin 81 mg Chew] 1 tab PO DAILY 12/05/22 [History Confirmed 12/05/22] Carvedilol 3.125 mg [Coreg 3.125 MG] 1 tab PO BID 12/05/22 [History Confirmed 12/05/22] Celecoxib 200 mg PO DAILY 12/05/22 [History Confirmed 12/05/22] Cetirizine HCl [All Day Allergy Relief] 10 mg PO DAILY 12/05/22 [History Confirmed 12/05/22] Cholecalciferol (Vitamin D3) [Vitamin D] 4,000 iu PO DAILY 12/05/22 [His tory Confirmed 12/05/22] Ergocalciferol (Vitamin D2) [Vitamin D2] 1 tab PO WEEKLY 12/05/22 [History Confirmed 12/05/22] Famotidine 20 mg PO BID 12/05/22 [History Confirmed 12/05/22] Gabapentin 100 mg PO BID 12/05/22 [History Confirmed 12/05/22] Hydralazine HCl 25 mg PO TID PRN PRN 12/05/22 [History Confirmed 12/05/22] Lisinopril 20 mg [Zestril 20 MG] 20 mg PO BID 12/05/22 [History Confirmed 12/05/22] Metaxalone 1 tab PO DAILY 12/05/22 [History Confirmed 12/05/22] Multivitamin [Multi-Vitamin Daily] 1 each PO DAILY 12/05/22 [History Confirmed 12/05/22] Rosuvastatin Calcium 10 mg PO HS 12/05/22 [History Confirmed 12/05/22] Testosterone Cypionate 200 mg IM UD 12/05/22 [History Confirmed 12/05/22] Vitamin E Mixed [Vitamin E] 400 unit PO DAILY 12/05/22 [History Confirmed 12/05/22] dilTIAZem HCL [Tiadylt ER] 240 mg PO DAILY 12/05/22 [History Confirmed 12/05/22] Allergies/Adverse Reactions: Allergies Allergy/AdvReac Type Severity Reaction Status Date / Time sulfamethoxazole Allergy Intermediate Rash Verified 12/05/22 04:47 [From Bactrim] trimethoprim [From Bactrim] Allergy Intermediate Rash Verified 12/05/22 04:47 Sulfa (Sulfonamide AdvReac Intermediate Rash Verified 12/05/22 10:50 Antibiotics) - Past Medical History Past Medical History: Yes Neurological History: Peripheral Neuropathy ENT History: No Pertinent History Cardiac History: Arrhythmia, High Cholesterol, Hypertension Respiratory History: Pneumonia, Other Endocrine Medical History: No Pertinent History Musculoskelatal History: Arthritis, Degenerative Disk Disease, Osteoarthritis GI Medical History: Gallbladder Disease, Hemorrhoids, Irritable Bowel History: Other Pyscho-Social History: Anxiety, Depression Male Reproductive Disorders: Other Comment: AMPUTATION OF LEFT FINGERS, C5 fx with C4,5,6 bone graph. restricted ureter with stent. hx Covid in 2019 - Past Surgical History Past Surgical History: Yes Neuro Surgical History: No Pertinent History Cardiac History: No Pertinent History Respiratory Surgery: No Pertinent History GI Surgical History: Cholecystectomy, Hernia Repair Genitourinary Surgical Hx: Other Musculskeletal Surgical Hx: No Pertinent History, Orthopedic Surgery, Amputation Male Surgical History: Other Other Surgical History: neck surgery 1985 and 2000 C 4,5,6 bone graph, T1 bone shaving. Left finger amputation with mulitple skin graphs from left thigh to hand. Ureteral stent, lt knee replacement; right arm fractur repair with hardware - Social History Smoking Status: Never smoker Exposure to second hand smoke: Yes Alcohol: Rarely Drug Use: none Significant Family History: no pertinent family hx - Physical Exam Vital Signs: Vital Signs - 24 hr Temp Pulse Resp BP BP Pulse Ox 12/05/22 11:30 116 H 44 H 134/100 94 L 12/05/22 11:00 115 H 33 H 139/94 89 L 12/05/22 10:50 97.7 F 120 H 25 H 140/116 95 12/05/22 10:39 112 H 22 134/107 95 12/05/22 09:00 117 H 25 H 160/115 95 12/05/22 08:50 127 H 24 95 12/05/22 08:40 123 H 27 H 91 L 12/05/22 08:30 115 H 28 H 95 12/05/22 08:20 102 H 27 H 92 L 12/05/22 08:18 91 L 12/05/22 07:50 128 H 31 H 94 L 12/05/22 07:40 112 H 42 H 91 L 12/05/22 07:30 114 H 30 H 92 L 12/05/22 07:13 107 H 22 92 L 12/05/22 07:00 116 H 29 H 141/119 94 L 12/05/22 06:59 121 H 33 H 149/114 94 L 12/05/22 06:51 93 L 12/05/22 06:30 111 H 15 154/124 95 12/05/22 06:27 146 H 38 H 166/117 12/05/22 06:00 128 H 30 H 166/117 94 L 12/05/22 05:30 128 H 31 H 153/126 97 12/05/22 05:00 98 H 28 H 134/114 96 12/05/22 04:44 146 H 25 H 158/115 93 L 12/05/22 04:29 26 H 95 12/05/22 04:25 97.5 F 146 H 29 H 151/109 151/109 93 L General Appearance: mild distress, alert, anxiety Neurologic Exam: alert, oriented x 3, cooperative, normal mood/affect, nml cerebellar function, nml station & gait, sensation nml, No motor deficits Eye Exam: PERRL/EOMI, eyes nml inspection Ears, Nose, Throat Exam: normal ENT inspection, TMs normal, pharynx normal, moist mucous membranes Neck Exam: normal inspection, non-tender, supple, full range of motion Respiratory Exam: lungs clear, crackles/rales (BLL), No respiratory distress Cardiovascular Exam: normal peripheral pulses, irregular Gastrointestinal/Abdomen Exam: soft, normal bowel sounds, tenderness (generalized), No mass Back Exam: normal inspection, normal range of motion, No CVA tenderness, No vertebral tenderness Extremity Exam: normal inspection, normal range of motion, pelvis stable Skin Exam: normal color, warm, dry, No rash Lymphatic Exam: No adenopathy Results - Labs Lab/Micro Results: Lab Results-Last 24 Hours 12/05/22 12/05/22 12/05/22 Range/Units 05:02 05:02 05:30 WBC 11.3 H (4.0-10.5) x10^3/uL RBC 4.07 L (4.1-5.6) x10^6/uL Hgb 12.7 (12.5-18.0) g/dL Hct 38.8 L (42-50) % MCV 95.3 (78-100) fL MCH 31.2 (26-32) pg MCHC 32.7 (32-36) g/dL RDW 15.0 H (11.5-14.0) % Plt Count 368 (150-450) x10^3/uL MPV 10.2 (7.5-11.0) fL Gran % 80.4 H (36.0-66.0) % Immature Gran % (Auto) 0.7 H (0.00-0.4) % Nucleat RBC Rel Count 0.0 (0.00-0.1) % Eos # (Auto) 0.22 (0-0.5) x10^3/uL Immature Gran # (Auto) 0.08 H (0.00-0.03) x10^3u/L Absolute Lymphs (auto) 1.34 (1.0-4.6) x10^3/uL Absolute Monos (auto) 0.52 (0.0-1.3) x10^3/uL Absolute Nucleated RBC 0.00 (0.00-0.01) x10^3u/L Lymphocytes % 11.9 L (24.0-44.0) % Monocytes % 4.6 (0.0-12.0) % Eosinophils % 2.0 (0.00-5.0) % Basophils % 0.4 (0.0-0.4) % Absolute Granulocytes 9.04 H (1.4-6.9) x10^3/uL Basophils # 0.05 (0-0.4) x10^3/uL PT (9.4-12.5) SECONDS INR (0.8-3.0) pO2/FiO2 Ratio 21.0 % VBG pH 7.42 (7.32-7.42) VBG pCO2 at Pat Temp 43 (42-55) mm/Hg VBG pO2 at Pat Temp 33 (25-40) mm/Hg VBG HCO3 27.9 (22-28) meq/L VBG O2 Sat (Yara) 54.2 L (95-100) VBG Base Excess 3.0 H (-2.0-2.0) VBG Hemoglobin 13.3 VBG Carboxyhemoglobin 2.4 (0.0-6.9) % T HGB POC Potassium 4.6 (3.5-5.1) Sodium (137-145) mmol/L Potassium (3.5-5.1) mmol/L Chloride (98-107) mmol/L Carbon Dioxide (22-30) mmol/L Anion Gap (5-15) MEQ/L BUN (9-20) mg/dL Creatinine (0.66-1.25) mg/dL Estimated GFR ML/MIN Glucose (74-106) mg/dL Lactic Acid 1.7 (0.4-2.0) Calcium (8.4-10.2) mg/dL Magnesium (1.6-2.3) mg/dL Total Bilirubin (0.2-1.3) mg/dL AST (17-59) U/L ALT (0-50) U/L Alkaline Phosphatase (38-126) U/L Troponin I (0.000-0.034) ng/mL NT-Pro-B Natriuret Pep (<300) pg/mL Serum Total Protein (6.3-8.2) g/dL Albumin (3.5-5.0) g/dL Lipase (23-300) U/L Procalcitonin (0.030-0.080) ng/mL Urine Color (Yellow) Urine Appearance (Clear) Urine pH (4.6-8.0) Ur Specific [place] (1.005-1.030) Urine Protein (Negative) Urine Glucose (UA) (Negative) mg/dL Urine Ketones (Negative) Urine Blood (Negative) Urine Nitrite (Negative) Urine Bilirubin (Negative) Urine Urobilinogen (0.2) mg/dL Ur Leukocyte Esterase (Negative) U Hyaline Cast (Auto) (0-2) /LPF Urine Microscopic RBC (0-5) /HPF Urine Microscopic WBC (0-5) /HPF Ur Epithelial Cells (None Seen) /HPF Urine Bacteria (None Seen) /HPF Urine Culture Reflexed (NO) Influenza Type A Ag (NEGATIVE) Influenza Type B Ag (NEGATIVE) RSV (PCR) (NEGATIVE) SARS-CoV-2 (PCR) (NEGATIVE) 12/05/22 12/05/22 12/05/22 Range/Units 05:30 05:30 05:30 WBC (4.0-10.5) x10^3/uL RBC (4.1-5.6) x10^6/uL Hgb (12.5-18.0) g/dL Hct (42-50) % MCV (78-100) fL MCH (26-32) pg MCHC (32-36) g/dL RDW (11.5-14.0) % Plt Count (150-450) x10^3/uL MPV (7.5-11.0) fL Gran % (36.0-66.0) % Immature Gran % (Auto) (0.00-0.4) % Nucleat RBC Rel Count (0.00-0.1) % Eos # (Auto) (0-0.5) x10^3/uL Immature Gran # (Auto) (0.00-0.03) x10^3u/L Absolute Lymphs (auto) (1.0-4.6) x10^3/uL Absolute Monos (auto) (0.0-1.3) x10^3/uL Absolute Nucleated RBC (0.00-0.01) x10^3u/L Lymphocytes % (24.0-44.0) % Monocytes % (0.0-12.0) % Eosinophils % (0.00-5.0) % Basophils % (0.0-0.4) % Absolute Granulocytes (1.4-6.9) x10^3/uL Basophils # (0-0.4) x10^3/uL PT 10.4 (9.4-12.5) SECONDS INR 0.95 (0.8-3.0) pO2/FiO2 Ratio % VBG pH (7.32-7.42) VBG pCO2 at Pat Temp (42-55) mm/Hg VBG pO2 at Pat Temp (25-40) mm/Hg VBG HCO3 (22-28) meq/L VBG O2 Sat (Yara) (95-100) VBG Base Excess (-2.0-2.0) VBG Hemoglobin VBG Carboxyhemoglobin (0.0-6.9) % T HGB POC Potassium (3.5-5.1) Sodium 142 (137-145) mmol/L Potassium 3.8 (3.5-5.1) mmol/L Chloride 111 H (98-107) mmol/L Carbon Dioxide 24 (22-30) mmol/L Anion Gap 10.8 (5-15) MEQ/L BUN 13 (9-20) mg/dL Creatinine 0.73 (0.66-1.25) mg/dL Estimated GFR > 60.0 ML/MIN Glucose 92 (74-106) mg/dL Lactic Acid (0.4-2.0) Calcium 8.8 (8.4-10.2) mg/dL Magnesium 1.6 (1.6-2.3) mg/dL Total Bilirubin 0.40 (0.2-1.3) mg/dL AST 27 (17-59) U/L ALT 29 (0-50) U/L Alkaline Phosphatase 53 (38-126) U/L Troponin I (0.000-0.034) ng/mL NT-Pro-B Natriuret Pep (<300) pg/mL Serum Total Protein 5.6 L (6.3-8.2) g/dL Albumin 3.3 L (3.5-5.0) g/dL Lipase 111 (23-300) U/L Procalcitonin 0.074 (0.030-0.080) ng/mL Urine Color (Yellow) Urine Appearance (Clear) Urine pH (4.6-8.0) Ur Specific [place] (1.005-1.030) Urine Protein (Negative) Urine Glucose (UA) (Negative) mg/dL Urine Ketones (Negative) Urine Blood (Negative) Urine Nitrite (Negative) Urine Bilirubin (Negative) Urine Urobilinogen (0.2) mg/dL Ur Leukocyte Esterase (Negative) U Hyaline Cast (Auto) (0-2) /LPF Urine Microscopic RBC (0-5) /HPF Urine Microscopic WBC (0-5) /HPF Ur Epithelial Cells (None Seen) /HPF Urine Bacteria (None Seen) /HPF Urine Culture Reflexed (NO) Influenza Type A Ag (NEGATIVE) Influenza Type B Ag (NEGATIVE) RSV (PCR) (NEGATIVE) SARS-CoV-2 (PCR) (NEGATIVE) 12/05/22 12/05/22 12/05/22 Range/Units 05:32 06:37 09:53 WBC (4.0-10.5) x10^3/uL RBC (4.1-5.6) x10^6/uL Hgb (12.5-18.0) g/dL Hct (42-50) % MCV (78-100) fL MCH (26-32) pg MCHC (32-36) g/dL RDW (11.5-14.0) % Plt Count (150-450) x10^3/uL MPV (7.5-11.0) fL Gran % (36.0-66.0) % Immature Gran % (Auto) (0.00-0.4) % Nucleat RBC Rel Count (0.00-0.1) % Eos # (Auto) (0-0.5) x10^3/uL Immature Gran # (Auto) (0.00-0.03) x10^3u/L Absolute Lymphs (auto) (1.0-4.6) x10^3/uL Absolute Monos (auto) (0.0-1.3) x10^3/uL Absolute Nucleated RBC (0.00-0.01) x10^3u/L Lymphocytes % (24.0-44.0) % Monocytes % (0.0-12.0) % Eosinophils % (0.00-5.0) % Basophils % (0.0-0.4) % Absolute Granulocytes (1.4-6.9) x10^3/uL Basophils # (0-0.4) x10^3/uL PT (9.4-12.5) SECONDS INR (0.8-3.0) pO2/FiO2 Ratio % VBG pH (7.32-7.42) VBG pCO2 at Pat Temp (42-55) mm/Hg VBG pO2 at Pat Temp (25-40) mm/Hg VBG HCO3 (22-28) meq/L VBG O2 Sat (Yara) (95-100) VBG Base Excess (-2.0-2.0) VBG Hemoglobin VBG Carboxyhemoglobin (0.0-6.9) % T HGB POC Potassium (3.5-5.1) Sodium (137-145) mmol/L Potassium (3.5-5.1) mmol/L Chloride (98-107) mmol/L Carbon Dioxide (22-30) mmol/L Anion Gap (5-15) MEQ/L BUN (9-20) mg/dL Creatinine (0.66-1.25) mg/dL Estimated GFR ML/MIN Glucose (74-106) mg/dL Lactic Acid (0.4-2.0) Calcium (8.4-10.2) mg/dL Magnesium (1.6-2.3) mg/dL Total Bilirubin (0.2-1.3) mg/dL AST (17-59) U/L ALT (0-50) U/L Alkaline Phosphatase (38-126) U/L Troponin I 0.015 0.013 (0.000-0.034) ng/mL NT-Pro-B Natriuret Pep 4100 (<300) pg/mL Serum Total Protein (6.3-8.2) g/dL Albumin (3.5-5.0) g/dL Lipase (23-300) U/L Procalcitonin (0.030-0.080) ng/mL Urine Color Red A (Yellow) Urine Appearance Turbid A (Clear) Urine pH 6.5 (4.6-8.0) Ur Specific [place] 1.015 (1.005-1.030) Urine Protein 100 A (Negative) Urine Glucose (UA) Negative (Negative) mg/dL Urine Ketones Negative (Negative) Urine Blood Large A (Negative) Urine Nitrite Positive A (Negative) Urine Bilirubin Small A (Negative) Urine Urobilinogen 0.2 (0.2) mg/dL Ur Leukocyte Esterase Large A (Negative) U Hyaline Cast (Auto) NONE SEEN (0-2) /LPF Urine Microscopic RBC >100 A (0-5) /HPF Urine Microscopic WBC 21-50 A (0-5) /HPF Ur Epithelial Cells None Seen (None Seen) /HPF Urine Bacteria Rare A (None Seen) /HPF Urine Culture Reflexed YES (NO) Influenza Type A Ag (NEGATIVE) Influenza Type B Ag (NEGATIVE) RSV (PCR) (NEGATIVE) SARS-CoV-2 (PCR) (NEGATIVE) 12/05/22 Range/Units Unknown WBC (4.0-10.5) x10^3/uL RBC (4.1-5.6) x10^6/uL Hgb (12.5-18.0) g/dL Hct (42-50) % MCV (78-100) fL MCH (26-32) pg MCHC (32-36) g/dL RDW (11.5-14.0) % Plt Count (150-450) x10^3/uL MPV (7.5-11.0) fL Gran % (36.0-66.0) % Immature Gran % (Auto) (0.00-0.4) % Nucleat RBC Rel Count (0.00-0.1) % Eos # (Auto) (0-0.5) x10^3/uL Immature Gran # (Auto) (0.00-0.03) x10^3u/L Absolute Lymphs (auto) (1.0-4.6) x10^3/uL Absolute Monos (auto) (0.0-1.3) x10^3/uL Absolute Nucleated RBC (0.00-0.01) x10^3u/L Lymphocytes % (24.0-44.0) % Monocytes % (0.0-12.0) % Eosinophils % (0.00-5.0) % Basophils % (0.0-0.4) % Absolute Granulocytes (1.4-6.9) x10^3/uL Basophils # (0-0.4) x10^3/uL PT (9.4-12.5) SECONDS INR (0.8-3.0) pO2/FiO2 Ratio % VBG pH (7.32-7.42) VBG pCO2 at Pat Temp (42-55) mm/Hg VBG pO2 at Pat Temp (25-40) mm/Hg VBG HCO3 (22-28) meq/L VBG O2 Sat (Yara) (95-100) VBG Base Excess (-2.0-2.0) VBG Hemoglobin VBG Carboxyhemoglobin (0.0-6.9) % T HGB POC Potassium (3.5-5.1) Sodium (137-145) mmol/L Potassium (3.5-5.1) mmol/L Chloride (98-107) mmol/L Carbon Dioxide (22-30) mmol/L Anion Gap (5-15) MEQ/L BUN (9-20) mg/dL Creatinine (0.66-1.25) mg/dL Estimated GFR ML/MIN Glucose (74-106) mg/dL Lactic Acid (0.4-2.0) Calcium (8.4-10.2) mg/dL Magnesium (1.6-2.3) mg/dL Total Bilirubin (0.2-1.3) mg/dL AST (17-59) U/L ALT (0-50) U/L Alkaline Phosphatase (38-126) U/L Troponin I (0.000-0.034) ng/mL NT-Pro-B Natriuret Pep (<300) pg/mL Serum Total Protein (6.3-8.2) g/dL Albumin (3.5-5.0) g/dL Lipase (23-300) U/L Procalcitonin (0.030-0.080) ng/mL Urine Color (Yellow) Urine Appearance (Clear) Urine pH (4.6-8.0) Ur Specific [place] (1.005-1.030) Urine Protein (Negative) Urine Glucose (UA) (Negative) mg/dL Urine Ketones (Negative) Urine Blood (Negative) Urine Nitrite (Negative) Urine Bilirubin (Negative) Urine Urobilinogen (0.2) mg/dL Ur Leukocyte Esterase (Negative) U Hyaline Cast (Auto) (0-2) /LPF Urine Microscopic RBC (0-5) /HPF Urine Microscopic WBC (0-5) /HPF Ur Epithelial Cells (None Seen) /HPF Urine Bacteria (None Seen) /HPF Urine Culture Reflexed (NO) Influenza Type A Ag NEGATIVE (NEGATIVE) Influenza Type B Ag NEGATIVE (NEGATIVE) RSV (PCR) NEGATIVE (NEGATIVE) SARS-CoV-2 (PCR) NEGATIVE (NEGATIVE) Microbiology 12/05/22 05:54 Blood Culture - Preliminary Blood - Radiology Impressions Radiology Exams & Impressions: Radiology Procedures Category Date Time Status ABDOMEN AND PELVIS W CONTRAST [CT] Stat Exams 12/05/22 07:04 Completed CHEST 1 VIEW (PORTABLE) Stat Exams 12/05/22 04:54 Completed CHEST WITH CONTRAST [CT] Stat Exams 12/05/22 07:04 Completed - Other Procedures and Tests Respiratory Therapy 12/05/22 09:45 EKG REPEAT IN AM Respiratory Therapy Consult ONCE Assessment/Plan (1) Atrial fibrillation with rapid ventricular response Current Visit: Yes Status: Acute Assessment & Plan: - Cardizem gtt started in ER - Cardizem gtt stopped prior to d/c - Cardizem 60mg PO x1 Code(s): I48.91 - UNSPECIFIED ATRIAL FIBRILLATION (2) Hematuria Current Visit: Yes Status: Acute Assessment & Plan: - pt reports hematuria since stent placed. - CT abd/ pelvis 12/05/22 Impression: Right double-J ureteral stent catheter in situ. Query catheter patency as there is hydronephrosis with little to no excretion and periureteral stranding. Incidental right renal cysts. - Pt to d/c and go o [facility] ER today. Code(s): R31.9 - HEMATURIA, UNSPECIFIED (3) Dyspnea Current Visit: Yes Status: Acute Qualifiers: Dyspnea type: unspecified Qualified Code(s): R06.00 - Dyspnea, unspecified Assessment & Plan: - room air - 2/2 A-fib RVR- fluid overload - Lasix ordered Code(s): R06.00 - DYSPNEA, UNSPECIFIED (4) Essential hypertension Current Visit: Yes Status: Acute Assessment & Plan: - uncontrolled - Continue home meds Code(s): I10 - ESSENTIAL (PRIMARY) HYPERTENSION (5) UTI (urinary tract infection) Current Visit: Yes Status: Acute Assessment & Plan: - Rocephin started in ER - Urine culture pending Code(s): N39.0 - URINARY TRACT INFECTION, SITE NOT SPECIFIED Hospital Summary - Hospital Course Hospital Course: is a 57 year old male with hx of IBS, restless legs, anxiety, chronic pain, anxiety, depression, peripheral neuropathy, A- Fib ( on Eliquis) since COVID in February of 2023. Pt reports a few weeks ago he was at [facility] and then tx to [facility] in [place] for the need of a ureter stent. He came in to the ER today with sxs of SOB, rapid heart rate, LLQ and RLQ abd pain, hematuria, and generalized body pain. He has not been feeling well for over 2 days. Sxs are constant and nothing makes him him feel better or worse. He thought he had COVID as sxs were similar to when he had this in February of this year. Cardizem gtt started in ER for new onset A-Fib RVR. HR 100-150's. Not requiring oxygen at this time. feels his urine is clearing up as it has been bright red since stent placed and now it is orange since coming to the hospital. Labs show he has a UTI and Rocphin IV gave in ER. CT abd/ pelvis shows Right double-J ureteral stent catheter in situ. Query catheter patency as there is hydronephrosis with little to no excretion and periureteral stranding. Incidental right renal cysts. CT of chest shows Recurrent diffuse bilateral ground glass airspace disease with new small bilateral effusions. Prominent subcarinal node presumed reactive. Rule out Covid 19 pneumonia. Covid test was negative in ER. He explains his pain meds of Celebrex and gabapentin were not taken today and they have not been helpful with his increased pain level. He does take xanax at night. Discussed CT results with Dr. Blackmon and that there is a concern for need for tx. Dr. Blackmon agreed with this as we do not have urology at this hospital. Discussed with pt and . Pt refused to be transferred by ambulance because in the past it was a bad experience causing increased pain, and a large cost. agreeable to taking pt to [facility] in [place] as this is where stent was placed. Discussed risk of private car. Cardizem gtt stopped at and one time dose of 60mg Cardizem gave. one time dose of [place] 5/325mg PO gave for pain. Discussed not to take Xanax with this medication. Discussed risk in detail including respiratory depression and even , - Vitals & Intake/Output Vital Signs: Vital Signs Temperature 97.7 F 12/05/22 10:50 Pulse Rate 116 H 12/05/22 11:30 Respiratory Rate 44 H 12/05/22 11:30 Blood Pressure 134/100 12/05/22 11:30 O2 Sat by Pulse Oximetry 94 L 12/05/22 11:30 Intake & Output: Intake & Output 12/03/22 12/04/22 12/05/22 12/06/22 11:59 11:59 11:59 11:59 Weight 111 kg - Lab Result Diagrams: 12/05/22 05:30 12/05/22 05:30 Lab Results-Last 24 Hrs: Lab Results-Last 24 Hours 12/05/22 12/05/22 12/05/22 Range/Units 05:02 05:02 05:30 WBC 11.3 H (4.0-10.5) x10^3/uL RBC 4.07 L (4.1-5.6) x10^6/uL Hgb 12.7 (12.5-18.0) g/dL Hct 38.8 L (42-50) % MCV 95.3 (78-100) fL MCH 31.2 (26-32) pg MCHC 32.7 (32-36) g/dL RDW 15.0 H (11.5-14.0) % Plt Count 368 (150-450) x10^3/uL MPV 10.2 (7.5-11.0) fL Gran % 80.4 H (36.0-66.0) % Immature Gran % (Auto) 0.7 H (0.00-0.4) % Nucleat RBC Rel Count 0.0 (0.00-0.1) % Eos # (Auto) 0.22 (0-0.5) x10^3/uL Immature Gran # (Auto) 0.08 H (0.00-0.03) x10^3u/L Absolute Lymphs (auto) 1.34 (1.0-4.6) x10^3/uL Absolute Monos (auto) 0.52 (0.0-1.3) x10^3/uL Absolute Nucleated RBC 0.00 (0.00-0.01) x10^3u/L Lymphocytes % 11.9 L (24.0-44.0) % Monocytes % 4.6 (0.0-12.0) % Eosinophils % 2.0 (0.00-5.0) % Basophils % 0.4 (0.0-0.4) % Absolute Granulocytes 9.04 H (1.4-6.9) x10^3/uL Basophils # 0.05 (0-0.4) x10^3/uL PT (9.4-12.5) SECONDS INR (0.8-3.0) pO2/FiO2 Ratio 21.0 % VBG pH 7.42 (7.32-7.42) VBG pCO2 at Pat Temp 43 (42-55) mm/Hg VBG pO2 at Pat Temp 33 (25-40) mm/Hg VBG HCO3 27.9 (22-28) meq/L VBG O2 Sat (Yara) 54.2 L (95-100) VBG Base Excess 3.0 H (-2.0-2.0) VBG Hemoglobin 13.3 VBG Carboxyhemoglobin 2.4 (0.0-6.9) % T HGB POC Potassium 4.6 (3.5-5.1) Sodium (137-145) mmol/L Potassium (3.5-5.1) mmol/L Chloride (98-107) mmol/L Carbon Dioxide (22-30) mmol/L Anion Gap (5-15) MEQ/L BUN (9-20) mg/dL Creatinine (0.66-1.25) mg/dL Estimated GFR ML/MIN Glucose (74-106) mg/dL Lactic Acid 1.7 (0.4-2.0) Calcium (8.4-10.2) mg/dL Magnesium (1.6-2.3) mg/dL Total Bilirubin (0.2-1.3) mg/dL AST (17-59) U/L ALT (0-50) U/L Alkaline Phosphatase (38-126) U/L Troponin I (0.000-0.034) ng/mL NT-Pro-B Natriuret Pep (<300) pg/mL Serum Total Protein (6.3-8.2) g/dL Albumin (3.5-5.0) g/dL Lipase (23-300) U/L Procalcitonin (0.030-0.080) ng/mL Urine Color (Yellow) Urine Appearance (Clear) Urine pH (4.6-8.0) Ur Specific [place] (1.005-1.030) Urine Protein (Negative) Urine Glucose (UA) (Negative) mg/dL Urine Ketones (Negative) Urine Blood (Negative) Urine Nitrite (Negative) Urine Bilirubin (Negative) Urine Urobilinogen (0.2) mg/dL Ur Leukocyte Esterase (Negative) U Hyaline Cast (Auto) (0-2) /LPF Urine Microscopic RBC (0-5) /HPF Urine Microscopic WBC (0-5) /HPF Ur Epithelial Cells (None Seen) /HPF Urine Bacteria (None Seen) /HPF Urine Culture Reflexed (NO) Influenza Type A Ag (NEGATIVE) Influenza Type B Ag (NEGATIVE) RSV (PCR) (NEGATIVE) SARS-CoV-2 (PCR) (NEGATIVE) 12/05/22 12/05/22 12/05/22 Range/Units 05:30 05:30 05:30 WBC (4.0-10.5) x10^3/uL RBC (4.1-5.6) x10^6/uL Hgb (12.5-18.0) g/dL Hct (42-50) % MCV (78-100) fL MCH (26-32) pg MCHC (32-36) g/dL RDW (11.5-14.0) % Plt Count (150-450) x10^3/uL MPV (7.5-11.0) fL Gran % (36.0-66.0) % Immature Gran % (Auto) (0.00-0.4) % Nucleat RBC Rel Count (0.00-0.1) % Eos # (Auto) (0-0.5) x10^3/uL Immature Gran # (Auto) (0.00-0.03) x10^3u/L Absolute Lymphs (auto) (1.0-4.6) x10^3/uL Absolute Monos (auto) (0.0-1.3) x10^3/uL Absolute Nucleated RBC (0.00-0.01) x10^3u/L Lymphocytes % (24.0-44.0) % Monocytes % (0.0-12.0) % Eosinophils % (0.00-5.0) % Basophils % (0.0-0.4) % Absolute Granulocytes (1.4-6.9) x10^3/uL Basophils # (0-0.4) x10^3/uL PT 10.4 (9.4-12.5) SECONDS INR 0.95 (0.8-3.0) pO2/FiO2 Ratio % VBG pH (7.32-7.42) VBG pCO2 at Pat Temp (42-55) mm/Hg VBG pO2 at Pat Temp (25-40) mm/Hg VBG HCO3 (22-28) meq/L VBG O2 Sat (Yara) (95-100) VBG Base Excess (-2.0-2.0) VBG Hemoglobin VBG Carboxyhemoglobin (0.0-6.9) % T HGB POC Potassium (3.5-5.1) Sodium 142 (137-145) mmol/L Potassium 3.8 (3.5-5.1) mmol/L Chloride 111 H (98-107) mmol/L Carbon Dioxide 24 (22-30) mmol/L Anion Gap 10.8 (5-15) MEQ/L BUN 13 (9-20) mg/dL Creatinine 0.73 (0.66-1.25) mg/dL Estimated GFR > 60.0 ML/MIN Glucose 92 (74-106) mg/dL Lactic Acid (0.4-2.0) Calcium 8.8 (8.4-10.2) mg/dL Magnesium 1.6 (1.6-2.3) mg/dL Total Bilirubin 0.40 (0.2-1.3) mg/dL AST 27 (17-59) U/L ALT 29 (0-50) U/L Alkaline Phosphatase 53 (38-126) U/L Troponin I (0.000-0.034) ng/mL NT-Pro-B Natriuret Pep (<300) pg/mL Serum Total Protein 5.6 L (6.3-8.2) g/dL Albumin 3.3 L (3.5-5.0) g/dL Lipase 111 (23-300) U/L Procalcitonin 0.074 (0.030-0.080) ng/mL Urine Color (Yellow) Urine Appearance (Clear) Urine pH (4.6-8.0) Ur Specific [place] (1.005-1.030) Urine Protein (Negative) Urine Glucose (UA) (Negative) mg/dL Urine Ketones (Negative) Urine Blood (Negative) Urine Nitrite (Negative) Urine Bilirubin (Negative) Urine Urobilinogen (0.2) mg/dL Ur Leukocyte Esterase (Negative) U Hyaline Cast (Auto) (0-2) /LPF Urine Microscopic RBC (0-5) /HPF Urine Microscopic WBC (0-5) /HPF Ur Epithelial Cells (None Seen) /HPF Urine Bacteria (None Seen) /HPF Urine Culture Reflexed (NO) Influenza Type A Ag (NEGATIVE) Influenza Type B Ag (NEGATIVE) RSV (PCR) (NEGATIVE) SARS-CoV-2 (PCR) (NEGATIVE) 12/05/22 12/05/22 12/05/22 Range/Units 05:32 06:37 09:53 WBC (4.0-10.5) x10^3/uL RBC (4.1-5.6) x10^6/uL Hgb (12.5-18.0) g/dL Hct (42-50) % MCV (78-100) fL MCH (26-32) pg MCHC (32-36) g/dL RDW (11.5-14.0) % Plt Count (150-450) x10^3/uL MPV (7.5-11.0) fL Gran % (36.0-66.0) % Immature Gran % (Auto) (0.00-0.4) % Nucleat RBC Rel Count (0.00-0.1) % Eos # (Auto) (0-0.5) x10^3/uL Immature Gran # (Auto) (0.00-0.03) x10^3u/L Absolute Lymphs (auto) (1.0-4.6) x10^3/uL Absolute Monos (auto) (0.0-1.3) x10^3/uL Absolute Nucleated RBC (0.00-0.01) x10^3u/L Lymphocytes % (24.0-44.0) % Monocytes % (0.0-12.0) % Eosinophils % (0.00-5.0) % Basophils % (0.0-0.4) % Absolute Granulocytes (1.4-6.9) x10^3/uL Basophils # (0-0.4) x10^3/uL PT (9.4-12.5) SECONDS INR (0.8-3.0) pO2/FiO2 Ratio % VBG pH (7.32-7.42) VBG pCO2 at Pat Temp (42-55) mm/Hg VBG pO2 at Pat Temp (25-40) mm/Hg VBG HCO3 (22-28) meq/L VBG O2 Sat (Yara) (95-100) VBG Base Excess (-2.0-2.0) VBG Hemoglobin VBG Carboxyhemoglobin (0.0-6.9) % T HGB POC Potassium (3.5-5.1) Sodium (137-145) mmol/L Potassium (3.5-5.1) mmol/L Chloride (98-107) mmol/L Carbon Dioxide (22-30) mmol/L Anion Gap (5-15) MEQ/L BUN (9-20) mg/dL Creatinine (0.66-1.25) mg/dL Estimated GFR ML/MIN Glucose (74-106) mg/dL Lactic Acid (0.4-2.0) Calcium (8.4-10.2) mg/dL Magnesium (1.6-2.3) mg/dL Total Bilirubin (0.2-1.3) mg/dL AST (17-59) U/L ALT (0-50) U/L Alkaline Phosphatase (38-126) U/L Troponin I 0.015 0.013 (0.000-0.034) ng/mL NT-Pro-B Natriuret Pep 4100 (<300) pg/mL Serum Total Protein (6.3-8.2) g/dL Albumin (3.5-5.0) g/dL Lipase (23-300) U/L Procalcitonin (0.030-0.080) ng/mL Urine Color Red A (Yellow) Urine Appearance Turbid A (Clear) Urine pH 6.5 (4.6-8.0) Ur Specific [place] 1.015 (1.005-1.030) Urine Protein 100 A (Negative) Urine Glucose (UA) Negative (Negative) mg/dL Urine Ketones Negative (Negative) Urine Blood Large A (Negative) Urine Nitrite Positive A (Negative) Urine Bilirubin Small A (Negative) Urine Urobilinogen 0.2 (0.2) mg/dL Ur Leukocyte Esterase Large A (Negative) U Hyaline Cast (Auto) NONE SEEN (0-2) /LPF Urine Microscopic RBC >100 A (0-5) /HPF Urine Microscopic WBC 21-50 A (0-5) /HPF Ur Epithelial Cells None Seen (None Seen) /HPF Urine Bacteria Rare A (None Seen) /HPF Urine Culture Reflexed YES (NO) Influenza Type A Ag (NEGATIVE) Influenza Type B Ag (NEGATIVE) RSV (PCR) (NEGATIVE) SARS-CoV-2 (PCR) (NEGATIVE) 12/05/22 Range/Units Unknown WBC (4.0-10.5) x10^3/uL RBC (4.1-5.6) x10^6/uL Hgb (12.5-18.0) g/dL Hct (42-50) % MCV (78-100) fL MCH (26-32) pg MCHC (32-36) g/dL RDW (11.5-14.0) % Plt Count (150-450) x10^3/uL MPV (7.5-11.0) fL Gran % (36.0-66.0) % Immature Gran % (Auto) (0.00-0.4) % Nucleat RBC Rel Count (0.00-0.1) % Eos # (Auto) (0-0.5) x10^3/uL Immature Gran # (Auto) (0.00-0.03) x10^3u/L Absolute Lymphs (auto) (1.0-4.6) x10^3/uL Absolute Monos (auto) (0.0-1.3) x10^3/uL Absolute Nucleated RBC (0.00-0.01) x10^3u/L Lymphocytes % (24.0-44.0) % Monocytes % (0.0-12.0) % Eosinophils % (0.00-5.0) % Basophils % (0.0-0.4) % Absolute Granulocytes (1.4-6.9) x10^3/uL Basophils # (0-0.4) x10^3/uL PT (9.4-12.5) SECONDS INR (0.8-3.0) pO2/FiO2 Ratio % VBG pH (7.32-7.42) VBG pCO2 at Pat Temp (42-55) mm/Hg VBG pO2 at Pat Temp (25-40) mm/Hg VBG HCO3 (22-28) meq/L VBG O2 Sat ([place]ara) (95-100) VBG Base Excess (-2.0-2.0) VBG Hemoglobin VBG Carboxyhemoglobin (0.0-6.9) % T HGB POC Potassium (3.5-5.1) Sodium (137-145) mmol/L Potassium (3.5-5.1) mmol/L Chloride (98-107) mmol/L Carbon Dioxide (22-30) mmol/L Anion Gap (5-15) MEQ/L BUN (9-20) mg/dL Creatinine (0.66-1.25) mg/dL Estimated GFR ML/MIN Glucose (74-106) mg/dL Lactic Acid (0.4-2.0) Calcium (8.4-10.2) mg/dL Magnesium (1.6-2.3) mg/dL Total Bilirubin (0.2-1.3) mg/dL AST (17-59) U/L ALT (0-50) U/L Alkaline Phosphatase (38-126) U/L Troponin I (0.000-0.034) ng/mL NT-Pro-B Natriuret Pep (<300) pg/mL Serum Total Protein (6.3-8.2) g/dL Albumin (3.5-5.0) g/dL Lipase (23-300) U/L Procalcitonin (0.030-0.080) ng/mL Urine Color (Yellow) Urine Appearance (Clear) Urine pH (4.6-8.0) Ur Specific [place] (1.005-1.030) Urine Protein (Negative) Urine Glucose (UA) (Negative) mg/dL Urine Ketones (Negative) Urine Blood (Negative) Urine Nitrite (Negative) Urine Bilirubin (Negative) Urine Urobilinogen (0.2) mg/dL Ur Leukocyte Esterase (Negative) U Hyaline Cast (Auto) (0-2) /LPF Urine Microscopic RBC (0-5) /HPF Urine Microscopic WBC (0-5) /HPF Ur Epithelial Cells (None Seen) /HPF Urine Bacteria (None Seen) /HPF Urine Culture Reflexed (NO) Influenza Type A Ag NEGATIVE (NEGATIVE) Influenza Type B Ag NEGATIVE (NEGATIVE) RSV (PCR) NEGATIVE (NEGATIVE) SARS-CoV-2 (PCR) NEGATIVE (NEGATIVE) Micro Results-Entire Visit: Microbiology 12/05/22 05:54 Blood Culture - Preliminary Blood - Radiology Exams Ordered Rad Exams-Entire Visit: Radiology Procedures Category Date Time Status ABDOMEN AND PELVIS W CONTRAST [CT] Stat Exams 12/05/22 07:04 Completed CHEST 1 VIEW (PORTABLE) Stat Exams 12/05/22 04:54 Completed CHEST WITH CONTRAST [CT] Stat Exams 12/05/22 07:04 Completed - Procedures and Test Procedures and Tests throughout Hospitalization: Therapy Orders & Screens 12/05/22 07:13 Respiratory Therapy Assessment DAILY Comment: 12/05/22 09:45 EKG REPEAT IN AM Comment: Respiratory Therapy Consult ONCE Comment: Reason For Exam: - Discharge Discharge Date: 12/05/22 (Pt wants to Drive hime to [facility] in [place]- refused transport by ambulance) Disposition: Home, Self-Care Condition: Fair Prescriptions: Continue Ropinirole HCl [Requip] 1 mg PO BID Tamsulosin HCl 0.4 mg [Flomax 0.4 MG] 0.4 mg PO DAILY Fenofibrate,Micronized 145 mg* [Tricor 145 MG] 145 mg PO DAILY Aripiprazole 10 mg [Abilify 10 MG] 5 mg PO DAILY Venlafaxine HCl ER 75 mg [Effexor XR 75 MG] 75 mg PO DAILY Lisinopril 20 mg [Zestril 20 MG] 20 mg PO BID dilTIAZem HCL [Tiadylt ER] 240 mg PO DAILY Rosuvastatin Calcium 10 mg PO HS Metaxalone 1 tab PO DAILY Gabapentin 100 mg PO BID Famotidine 20 mg PO BID Cetirizine HCl [All Day Allergy Relief] 10 mg PO DAILY Celecoxib 200 mg PO DAILY Carvedilol 3.125 mg [Coreg 3.125 MG] 1 tab PO BID Aspirin 81 gm Chew [Baby Aspirin 81 mg Chew] 1 tab PO DAILY Apixaban [Eliquis] 5 mg PO BID ALPRAZolam [Alprazolam] 0.5 mg PO TID Multivitamin [Multi-Vitamin Daily] 1 each PO DAILY Testosterone Cypionate 200 mg IM UD Ergocalciferol (Vitamin D2) [Vitamin D2] 1 tab PO WEEKLY Hydralazine HCl 25 mg PO TID PRN PRN PRN Reason: Hypertension Cholecalciferol (Vitamin D3) [Vitamin D] 4,000 iu PO DAILY Vitamin E Mixed [Vitamin E] 400 unit PO DAILY Additional Instructions: Do not take xanax as you received norco while in the hospital. This can cause respiratory depression and even . Please go to [facility] ER as discussed immediately. If sxs worsen please go to closest ER. Follow up with: AMA MORAN NP [Primary Care Provider] -
[2022-12-05 12:43] VITALS: BP 145/96
[2022-12-05 13:37] VITALS: PULSE 124; RESP 29
[2022-12-05] MEDS ORDERED: Lasix 40 MG/4 ML IV SCH (17:00)
== END 2022-12-05 13:29 | disposition home or self-care (01) ==
LOC: ED 04:24 → OBSVTOIN 09:41 → INTOOBSV 09:41 → ICU 09:41 → MED SURG 09:42 → ICU 09:43
PROVIDERS: ADMIT Internal Medicine; ATTEND Internal Medicine
DX: I48.20 Chronic atrial fibrillation, unspecified (principal); R31.9 Hematuria, unspecified; R06.00 Dyspnea, unspecified; N39.0 Urinary tract infection, site not specified; I11.0 Hypertensive heart disease with heart failure; I50.9 Heart failure, unspecified; F41.9 Anxiety disorder, unspecified; E78.5 Hyperlipidemia, unspecified; Z86.16 Personal history of COVID-19; Z79.899 Other long term (current) drug therapy; Z79.01 Long term (current) use of anticoagulants; Z20.828 Contact with and (suspected) exposure to other viral communicable diseases
CPT/HCPCS: 0241U; 36000; 36415; 71045; 71260; 74177; 80053; 81001; 82805; 83605; 83690; 83735; 83880; 84145; 84484; 85025; 85610; 87040; 87086; 93005; 93041; 94640; 96372; 96374; 96375; 99291; 93268; 99285; J0696; J1940; J2270; A9270-GY; G0378

== ENCOUNTER 2023-08-05 10:52 | Emergency (ER) | payer BC ==
--- NOTE | 2023-08-05 10:59 | ERPHSYRPT ---
- History of Present Illness Time Seen by Provider: 08/05/23 10:59 Source: patient, family Exam Limitations: no limitations Physician History: This is an obese 57-year-old white male patient of nurse practitioner Liban who fell approximately 1 month ago and landed on his left elbow. Patient is a diabetic. 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 He did start Entresto approximately 4 to 6 weeks ago. They have noticed that his blood pressure is slowly decreasing. Patient has a history of atrial fibrillation and is on Eliquis and aspirin. He is on a beta-joão as well as digoxin and amiodarone for his atrial fibrillation control. Patient has a history of hypertension, hyperlipidemia. Because of the symptoms that he has been having as well as pain and swelling redness and warmth in the left elbow, patient went to urgent care today and he was found to have systolic blood pressure in the 70s. He was referred to the emergency department. Upon entrance into the examination, the patient's systolic blood pressure was 78. He denies chest pain. He denies shortness of breath. He denies abdominal pain. Additional history was obtained from the patient's spouse who knows this patient's medical history including medication list and allergies better than the patient. Timing/Duration: day(s) (Last 2 to 3 days), gradual onset, worse Severity: moderate Modifying Factors: Improves With: nothing Associated Symptoms: diaphoresis, weakness, No chest pain, No fever Allergies/Adverse Reactions: sulfamethoxazole [From Bactrim] Allergy (Intermediate, Verified 08/05/23 11:05) Rash trimethoprim [From Bactrim] Allergy (Intermediate, Verified 08/05/23 11:05) Rash Sulfa (Sulfonamide Antibiotics) Adverse Reaction (Intermediate, Verified 08/05/23 11:05) Rash oxycodone Adverse Reaction (Mild, Verified 08/05/23 11:06) Home Medications: Ropinirole HCl [Requip] 1 mg PO BID 11/25/15 [History] Aripiprazole 10 mg [Abilify 10 MG] 5 mg PO HS 01/13/17 [History] Fenofibrate,Micronized 145 mg* [Tricor 145 MG] 145 mg PO DAILY 01/13/17 [History] Tamsulosin HCl 0.4 mg [Flomax 0.4 MG] 0.4 mg PO DAILY 01/13/17 [History] ALPRAZolam [Alprazolam] 0.5 mg PO HS 12/05/22 [History] Apixaban [Eliquis] 5 mg PO BID 12/05/22 [History] Aspirin 81 gm Chew [Baby Aspirin 81 mg Chew] 1 tab PO DAILY 12/05/22 [History] Celecoxib 200 mg PO DAILY 12/05/22 [History] Cetirizine HCl [All Day Allergy Relief] 10 mg PO DAILY 12/05/22 [History] Cholecalciferol (Vitamin D3) [Vitamin D] 4,000 iu PO DAILY 12/05/22 [Histo ry] Ergocalciferol (Vitamin D2) [Vitamin D2] 1 tab PO WEEKLY 12/05/22 [History] Famotidine 20 mg PO HS 12/05/22 [History] Gabapentin 100 mg PO BID 12/05/22 [History] Multivitamin [Multi-Vitamin Daily] 1 each PO DAILY 12/05/22 [History] Rosuvastatin Calcium 10 mg PO HS 12/05/22 [History] Amiodarone HCl 200 mg [Cordarone 200 MG] 200 mg PO EVENING MEAL 08/05/23 [History] Digoxin 0.125 mg Tablet [Lanoxin 0.125MG TABLET] 0.125 mg PO DAILY 08/05/23 [History] Empagliflozin [Jardiance] 10 mg PO DAILY 08/05/23 [History] Metoprolol Succinate 50 mg [Toprol Xl 50 MG] 50 mg PO BID 08/05/23 [History] Sacubitril/Valsartan [Entresto 24 mg-26 mg Tablet] 1 tab PO BID 08/05/23 [History] Venlafaxine HCl 37.5 mg [Effexor 37.5 mg] 37.5 mg PO DAILY 08/05/23 [History] Hx Tetanus, Diphtheria Vaccination/Date Given: Yes Hx Influenza Vaccination/Date Given: No Hx Pneumococcal Vaccination/Date Given: No Travel Risk - International Travel Have you traveled outside of the country in past 3 weeks: No - Emerging Infectious Disease Are you exhibiting symptoms associated with any current EIDs: No - Review of Systems Constitutional: Malaise, Weakness Eyes: No Symptoms Ears, Nose, & Throat: No Symptoms Respiratory: No Symptoms Cardiac: No Symptoms Abdominal/Gastrointestinal: No Symptoms Genitourinary Symptoms: No Symptoms Musculoskeletal: Injury (1 month ago left elbow. Tenderness redness and warmth) Skin: Other (Tenderness, redness and warmth left elbow) Neurological: No Symptoms Psychological: No Symptoms Endocrine: No Symptoms Hematologic/Lymphatic: No Symptoms Immunological/Allergic: No Symptoms All Other Systems: Reviewed and Negative - Past Medical History Pertinent Past Medical History: Yes Neurological History: Peripheral Neuropathy ENT History: No Pertinent History Cardiac History: Arrhythmia, High Cholesterol, Hypertension Respiratory History: Other, Pneumonia Endocrine Medical History: No Pertinent History Musculoskeletal History: Arthritis, Osteoarthritis, Degenerative Disk Disease GI Medical History: Irritable Bowel, Hemorrhoids, Gallbladder Disease History: Other Psycho-Social History: Depression, Anxiety Male Reproductive Disorders: Other Other Medical History: AMPUTATION OF LEFT FINGERS, C5 fx with C4,5,6 bone graph. restricted ureter with stent. hx Covid in 2019 - Past Surgical History Past Surgical History: Yes Neuro Surgical History: No Pertinent History Cardiac: No Pertinent History Respiratory: No Pertinent History Gastrointestinal: Cholecystectomy, Hernia Repair Genitourinary: Other Musculoskeletal: No Pertinent History, Orthopedic Surgery, Amputation Male Surgical History: Other Other Surgical History: neck surgery 1985 and 2000 C 4,5,6 bone graph, T1 bone shaving. Left finger amputation with mulitple skin graphs from left thigh to hand. Ureteral stent, lt knee replacement; right arm fractur repair with hard contreras Significant Family History: no pertinent family hx - Social History Smoking Status: Never smoker Exposure to second hand smoke: Yes Drug Use: none Patient Lives Alone: No - Nursing Vital Signs Nursing Vital Signs: Initial Vital Signs Temperature 95.6 F 08/05/23 11:06 Pulse Rate 73 08/05/23 11:06 Respiratory Rate 19 08/05/23 11:06 Blood Pressure 78/52 08/05/23 11:06 O2 Sat by Pulse Oximetry 96 08/05/23 11:06 Pain Scale Pain Intensity 8 - Physical Exam General Appearance: no apparent distress, alert, lethargy (Very mild), obese Eye Exam: PERRL/EOMI, eyes nml inspection Ears, Nose, Throat Exam: normal ENT inspection, moist mucous membranes Neck Exam: normal inspection, non-tender, supple, full range of motion Respiratory Exam: normal breath sounds, lungs clear, airway intact, No chest tenderness, No respiratory distress Cardiovascular Exam: regular rate/rhythm, normal heart sounds, normal peripheral pulses Gastrointestinal/Abdomen Exam: soft, normal bowel sounds, No tenderness Rectal Exam: not done Back Exam: normal inspection, normal range of motion, No CVA tenderness, No vertebral tenderness Extremity Exam: normal range of motion, pelvis stable, inflammation, tenderness (Eft elbow), other (Warmth given overlying left elbow. No fluctuance. No drainage) Neurologic Exam: alert Skin Exam: other (Redness of skin overlying left elbow) Lymphatic Exam: No adenopathy SpO2 Interpretation: normal O2 Delivery: Room Air - Course Nursing assessment & vital signs reviewed: Yes EKG Interpreted by Me: RATE (63), A-fib, NORMAL AXIS, NORMAL INTERVALS, Other (No acute ischemia on today's twelve-lead EKG. The QTc is 478 and is within normal limits.) Ordered Tests: Active Orders 24 hr Category Date Time Status Project Development Leader STAT Care 08/05/23 11:17 Active EKG-ER Only STAT Care 08/05/23 11:16 Active IV Insertion STAT Care 08/05/23 11:16 Active Pulse Oximetry (ED) STAT Care 08/05/23 11:16 Active CHEST 1 VIEW (PORTABLE) Stat Exams 08/05/23 11:17 Taken UPPER EXTREMITY W/O CONTRAST [CT] Stat Exams 08/05/23 11:19 Completed BLOOD CULTURE Stat Lab 08/05/23 11:44 Received CBC W DIFF Stat Lab 08/05/23 11:38 Completed CMP Stat Lab 08/05/23 11:38 Completed Lactic Acid Stat Lab 08/05/23 11:35 Completed MONO SCREEN Stat Lab 08/05/23 11:38 Completed TROPONIN Q4H Lab 08/05/23 11:38 Completed TROPONIN Q4H Lab 08/05/23 15:30 Completed TROPONIN Q4H Lab 08/05/23 19:30 Ordered UA W/RFX UR CULTURE Stat Lab 08/05/23 14:45 Completed Medication Summary Generic Name Dose Route Start Last Admin Trade Name Freq PRN Reason Stop Dose Admin Methylprednisolone Sodium 0 mg 08/05/23 17:46 Succinate 125 mg/ Sterile IV 08/05/23 17:47 Water 2 ml STAT ONE Sodium Chloride 1,000 mls @ 250 mls/hr 08/05/23 11:30 08/05/23 17:13 Sodium Chloride 0.9% 1000 Ml IV 09/04/23 11:29 Not Given .Q4H JENNIFER Sodium Chloride 1,000 mls @ 500 mls/hr 08/05/23 16:00 08/05/23 16:16 Sodium Chloride 0.9% 1000 Ml IV 09/04/23 15:59 500 mls/hr .Q2H JENNIFER Administration Levofloxacin/Dextrose 500 mg in 100 mls @ 100 mls/hr 08/05/23 16:48 08/05/23 17:00 Levofloxacin 500mg/100ml D5w IV 08/05/23 17:47 100 mls/hr STAT STA 100 mls/hr Administration Discontinued Medications Generic Name Dose Route Start Last Admin Trade Name Freq PRN Reason Stop Dose Admin Levofloxacin/Dextrose Confirm 08/05/23 16:59 Levofloxacin 500mg/100ml D5w Administered 08/05/23 17:00 Dose 500 mg in 100 mls @ ud IV .K-MED ONE Lab/Rad Data: Laboratory Result Diagrams 08/05/23 11:38 08/05/23 11:38 Laboratory Results 08/05/23 08/05/23 08/05/23 Range/Units 15:30 14:45 11:46 WBC (4.0-10.5) x10^3/uL RBC (4.1-5.6) x10^6/uL Hgb (12.5-18.0) g/dL Hct (42-50) % MCV (78-100) fL MCH (26-32) pg MCHC (32-36) g/dL RDW (11.5-14.0) % Plt Count (150-450) x10^3/uL MPV (7.5-11.0) fL Gran % (36.0-66.0) % Immature Gran % (Auto) (0.00-0.4) % Nucleat RBC Rel Count (0.00-0.1) % Eos # (Auto) (0-0.5) x10^3/uL Immature Gran # (Auto) (0.00-0.03) x10^3u/L Absolute Lymphs (auto) (1.0-4.6) x10^3/uL Absolute Monos (auto) (0.0-1.3) x10^3/uL Absolute Nucleated RBC (0.00-0.01) x10^3u/L Lymphocytes % (24.0-44.0) % Monocytes % (0.0-12.0) % Eosinophils % (0.00-5.0) % Basophils % (0.0-0.4) % Absolute Granulocytes (1.4-6.9) x10^3/uL Basophils # (0-0.4) x10^3/uL Sodium (135-145) mmol/L Potassium (3.5-5.1) mmol/L Chloride (98-107) mmol/L Carbon Dioxide (22-30) mmol/L Anion Gap (5-15) MEQ/L BUN (9-20) mg/dL Creatinine (0.66-1.25) mg/dL Estimated GFR ML/MIN Glucose (74-106) mg/dL Lactic Acid (0.4-2.0) Calcium (8.4-10.2) mg/dL Total Bilirubin (0.2-1.3) mg/dL AST (17-59) U/L ALT (0-50) U/L Alkaline Phosphatase (38-126) U/L Troponin I < 0.012 (0.000-0.033) ng/mL Serum Total Protein (6.3-8.2) g/dL Albumin (3.5-5.0) g/dL Urine Color Dark Yellow (Yellow) Urine Appearance Clear (Clear) Urine pH 6.5 (4.6-8.0) Ur Specific [place] >=1.030 A (1.005-1.030) Urine Protein Negative (Negative) Urine Glucose (UA) >=1000 A (Negative) mg/dL Urine Ketones Negative (Negative) Urine Blood Negative (Negative) Urine Nitrite Negative (Negative) Urine Bilirubin Negative (Negative) Urine Urobilinogen 0.2 (0.2) mg/dL Ur Leukocyte Esterase Negative (Negative) U Hyaline Cast (Auto) NONE SEEN (0-2) /LPF Urine Microscopic RBC 0-2 (0-5) /HPF Urine Microscopic WBC 0-2 (0-5) /HPF Ur Epithelial Cells None Seen (None Seen) /HPF Urine Bacteria None Seen (None Seen) /HPF Urine Culture Reflexed NO (NO) Digoxin (0.8-1.9) ng/mL Monoscreen (NEGATIVE) Influenza Type A Ag NEGATIVE (NEGATIVE) Influenza Type B Ag NEGATIVE (NEGATIVE) RSV (PCR) NEGATIVE (NEGATIVE) SARS-CoV-2 (PCR) NEGATIVE (NEGATIVE) 08/05/23 08/05/23 08/05/23 Range/Units 11:38 11:38 11:38 WBC (4.0-10.5) x10^3/uL RBC (4.1-5.6) x10^6/uL Hgb (12.5-18.0) g/dL Hct (42-50) % MCV (78-100) fL MCH (26-32) pg MCHC (32-36) g/dL RDW (11.5-14.0) % Plt Count (150-450) x10^3/uL MPV (7.5-11.0) fL Gran % (36.0-66.0) % Immature Gran % (Auto) (0.00-0.4) % Nucleat RBC Rel Count (0.00-0.1) % Eos # (Auto) (0-0.5) x10^3/uL Immature Gran # (Auto) (0.00-0.03) x10^3u/L Absolute Lymphs (auto) (1.0-4.6) x10^3/uL Absolute Monos (auto) (0.0-1.3) x10^3/uL Absolute Nucleated RBC (0.00-0.01) x10^3u/L Lymphocytes % (24.0-44.0) % Monocytes % (0.0-12.0) % Eosinophils % (0.00-5.0) % Basophils % (0.0-0.4) % Absolute Granulocytes (1.4-6.9) x10^3/uL Basophils # (0-0.4) x10^3/uL Sodium (135-145) mmol/L Potassium (3.5-5.1) mmol/L Chloride (98-107) mmol/L Carbon Dioxide (22-30) mmol/L Anion Gap (5-15) MEQ/L BUN (9-20) mg/dL Creatinine (0.66-1.25) mg/dL Estimated GFR ML/MIN Glucose (74-106) mg/dL Lactic Acid (0.4-2.0) Calcium (8.4-10.2) mg/dL Total Bilirubin (0.2-1.3) mg/dL AST (17-59) U/L ALT (0-50) U/L Alkaline Phosphatase (38-126) U/L Troponin I < 0.012 (0.000-0.033) ng/mL Serum Total Protein (6.3-8.2) g/dL Albumin (3.5-5.0) g/dL Urine Color (Yellow) Urine Appearance (Clear) Urine pH (4.6-8.0) Ur Specific [place] (1.005-1.030) Urine Protein (Negative) Urine Glucose (UA) (Negative) mg/dL Urine Ketones (Negative) Urine Blood (Negative) Urine Nitrite (Negative) Urine Bilirubin (Negative) Urine Urobilinogen (0.2) mg/dL Ur Leukocyte Esterase (Negative) U Hyaline Cast (Auto) (0-2) /LPF Urine Microscopic RBC (0-5) /HPF Urine Microscopic WBC (0-5) /HPF Ur Epithelial Cells (None Seen) /HPF Urine Bacteria (None Seen) /HPF Urine Culture Reflexed (NO) Digoxin 0.9 (0.8-1.9) ng/mL Monoscreen NEGATIVE (NEGATIVE) Influenza Type A Ag (NEGATIVE) Influenza Type B Ag (NEGATIVE) RSV (PCR) (NEGATIVE) SARS-CoV-2 (PCR) (NEGATIVE) 08/05/23 08/05/23 08/05/23 Range/Units 11:38 11:38 11:35 WBC 11.7 H (4.0-10.5) x10^3/uL RBC 5.86 H (4.1-5.6) x10^6/uL Hgb 18.1 H (12.5-18.0) g/dL Hct 54.6 H (42-50) % MCV 93.2 (78-100) fL MCH 30.9 (26-32) pg MCHC 33.2 (32-36) g/dL RDW 15.4 H (11.5-14.0) % Plt Count 240 (150-450) x10^3/uL MPV 9.0 (7.5-11.0) fL Gran % 82.9 H (36.0-66.0) % Immature Gran % (Auto) 0.5 H (0.00-0.4) % Nucleat RBC Rel Count 0.0 (0.00-0.1) % Eos # (Auto) 0.12 (0-0.5) x10^3/uL Immature Gran # (Auto) 0.06 H (0.00-0.03) x10^3u/L Absolute Lymphs (auto) 0.98 L (1.0-4.6) x10^3/uL Absolute Monos (auto) 0.79 (0.0-1.3) x10^3/uL Absolute Nucleated RBC 0.00 (0.00-0.01) x10^3u/L Lymphocytes % 8.4 L (24.0-44.0) % Monocytes % 6.7 (0.0-12.0) % Eosinophils % 1.0 (0.00-5.0) % Basophils % 0.5 (0.0-0.4) % Absolute Granulocytes 9.72 H (1.4-6.9) x10^3/uL Basophils # 0.06 (0-0.4) x10^3/uL Sodium 139 (135-145) mmol/L Potassium 4.1 (3.5-5.1) mmol/L Chloride 108 H (98-107) mmol/L Carbon Dioxide 24 (22-30) mmol/L Anion Gap 11.1 (5-15) MEQ/L BUN 26 H (9-20) mg/dL Creatinine 1.22 (0.66-1.25) mg/dL Estimated GFR 68.3 ML/MIN Glucose 113 H (74-106) mg/dL Lactic Acid 1.7 (0.4-2.0) Calcium 9.5 (8.4-10.2) mg/dL Total Bilirubin 0.50 (0.2-1.3) mg/dL AST 24 (17-59) U/L ALT 31 (0-50) U/L Alkaline Phosphatase 45 (38-126) U/L Troponin I (0.000-0.033) ng/mL Serum Total Protein 6.7 (6.3-8.2) g/dL Albumin 3.9 (3.5-5.0) g/dL Urine Color (Yellow) Urine Appearance (Clear) Urine pH (4.6-8.0) Ur Specific [place] (1.005-1.030) Urine Protein (Negative) Urine Glucose (UA) (Negative) mg/dL Urine Ketones (Negative) Urine Blood (Negative) Urine Nitrite (Negative) Urine Bilirubin (Negative) Urine Urobilinogen (0.2) mg/dL Ur Leukocyte Esterase (Negative) U Hyaline Cast (Auto) (0-2) /LPF Urine Microscopic RBC (0-5) /HPF Urine Microscopic WBC (0-5) /HPF Ur Epithelial Cells (None Seen) /HPF Urine Bacteria (None Seen) /HPF Urine Culture Reflexed (NO) Digoxin (0.8-1.9) ng/mL Monoscreen (NEGATIVE) Influenza Type A Ag (NEGATIVE) Influenza Type B Ag (NEGATIVE) RSV (PCR) (NEGATIVE) SARS-CoV-2 (PCR) (NEGATIVE) - Progress Progress: improved, re-examined Progress Note: 08/05/23 11:31 My medical decision making and the assignment of moderate to high complexity to this patient's medical issue today is based on review of the patient's past medical history, review the patient's medication list, review of patient drug allergy list, history present illness and physical findings on examination. The workup in this patient includes placement of intravenous line, infusion of normal saline solution, CT scan of the left elbow, blood cultures, lactic acid, CBC, CMP, twelve-lead EKG, troponin level, digoxin level. Differential diagnosis includes myocardial infarction, sepsis, hypotension, urosepsis, anemia, viral illness, dehydration 08/05/23 16:17 I interpreted the patient's laboratory data report. The patient does have a slightly elevated white count with a slight left shift. He also appears to be hemoconcentrated. The patient has had 2 troponin levels which are normal. His hypotension may be related to medication that he is taking. It does not appear to me the patient is septic. 08/05/23 16:18 CT scan of the left elbow shows no acute fracture. There is osteoarthritis present. There are findings consistent with olecranon bursitis. 08/05/23 17:46 I discussed with the patient and his spouse the workup results including lab results and the radiographic studies. I obtained further history from the patient's spouse who stated that his blood pressure has been slowly decreasing since he started the Entresto 4 to 5 weeks ago. In fact, she stated that in the last week his systolic blood pressure was running into the 100-105 level. Counseled pt/family regarding: lab results, diagnosis, rad results Medical Desision Making - Independent Historian Additional History obtained from: Spouse - Diagnostic Testing Diagnostic test were ordered, analyzed, and reviewed by me: Yes Radiological Interpretation: Interpreted by me, Reviewed by me, Teleradiologist Report - Risk of complications The pt has a mod risk of morbidity or mortality based on: Need for prescription drug management - Departure Departure Disposition: Home Clinical Impression: Chronic hypotension, Side effect of medication, Olecranon bursitis of left elbow Condition: Stable Critical Care Time: No Referrals: AMA MORAN, REINFORCING [employer]TER [Primary Care Provider] - Follow up/PCP as directed Additional Instructions: Drink plenty of fluids. Take your antibiotics and steroids as prescribed. Stop your Entresto. Do not restart your Entresto until you [facility] Monday morning, 08/07/2023. With regard to the olecranon bursitis, ice pack 2-3 times a day for the next 48 hours. You may try a elbow sleeve. Avoid pressure to this area. Prescriptions: Prednisone 5 mg [Deltasone 5 mg] 5 mg PO TID #12 tablet Levofloxacin [Levaquin 500 MG Tablet] 500 mg PO DAILY #7 tablet
[2023-08-05 11:13] VITALS: TEMP 95.6
[2023-08-05] MEDS ORDERED: Sodium Chloride 0.9% 1000 ML 1,000 ML ONE ×2 (11:30→16:15)
[2023-08-05] MEDS: Sodium Chloride 0.9% 1000 ML 1,000 ML IV SCH ×2 (11:47→16:16)
[2023-08-05 11:58] LABS: Absolute Neutrophil Ct (ANC) 9.72 x10^3/uL (1.4-6.9); BASOPHIL % 0.5 % (0.0-0.4); Basophil (Absolute #) 0.06 x10^3/uL (0-0.4); Eosinophil (Absolute #) 0.12 x10^3/uL (0-0.5); Hematocrit 54.6 % (42-50); Hemoglobin 18.1 g/dL (12.5-18.0); IMMATURE GRAN # 0.06 x10^3u/L (0.00-0.03); IMMATURE GRAN % 0.5 % (0.00-0.4); Lymphocyte (Absolute #) 0.98 x10^3/uL (1.0-4.6); Lymphocytes % 8.4 % (24.0-44.0); Mean Cell Volume 93.2 fL (78-100); Mean Corpuscular Hemoglobin 30.9 pg (26-32); Mean Corpuscular Hgb Concent. 33.2 g/dL (32-36); Monocyte (Absolute #) 0.79 x10^3/uL (0.0-1.3); Monocytes % 6.7 % (0.0-12.0); Neutrophil % 82.9 % (36.0-66.0); Platelet Count 240 x10^3/uL (150-450); Red Blood Count 5.86 x10^6/uL (4.1-5.6); Red Cell Distribution Width 15.4 % (11.5-14.0); White Blood Count 11.7 x10^3/uL (4.0-10.5)
[2023-08-05 12:07] LABS: ALBUMIN 3.9 g/dL (3.5-5.0); ANION GAP 11.1 MEQ/L (5-15); BILIRUBIN,TOTAL 0.5 mg/dL (0.2-1.3); Calcium 9.5 mg/dL (8.4-10.2); Creatinine 1 1.22 mg/dL (0.66-1.25); EST GLOMERULAR FILTRATION RATE 68.3 ML/MIN; Potassium 4.1 mmol/L (3.5-5.1); Total Protein 6.7 g/dL (6.3-8.2)
[2023-08-05 12:30] LABS: INFLUENZA A NEGATIVE (NEGATIVE); INFLUENZA B NEGATIVE (NEGATIVE); RESPIRATORY SYNCTIAL VIRUS NEGATIVE (NEGATIVE); SARS-CoV-2 Xpert Express NEGATIVE (NEGATIVE)
--- NOTE | 2023-08-05 13:30 | XRAY ---
CLINICAL HISTORY: Left elbow injury COMPARISON: None. TECHNIQUE: Thin cuts axial CT scan of the left elbow without intravenous contrast, with sagittal and coronal reconstruction. One of the following dose reduction techniques was utilized for this exam: Automated exposure control, adjustment of the mA and/or kV according to patient size, and use of iterative reconstruction. CTDI 71.95 mGy, DLP 1932.48 mGy-cm. FINDINGS: No evidence of recent osseous fractures. Two small well-corticated bone fragments are seen adjacent to the ulnar coronoid process and the tip of the olecranon process could be an old avulsion fracture versus loose bodies. Background of elbow osteoarthritis with joint space narrowing, and osteophytes formation. No elbow dislocation. Intact radius head with preserved proximal radio-ulnar joint articulation. Intact distal humerus. No joint effusion. Subcutaneous and soft tissue swelling and edema are seen overlying the olecranon process. IMPRESSION: 1. No evidence of acute fracture. 2. 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 3. Olecranon bursitis. Electronically Signed by: Raphael Short MD. (08/05/2023 13:25:19 EDT)
[2023-08-05 14:54] LABS: Appearance Clear (Clear); Bacteria None Seen /HPF (None Seen); Bilirubin Negative (Negative); Blood Negative (Negative); Epithelial Cells None Seen /HPF (None Seen); Glucose, Urine >=1000 mg/dL (Negative); Hyaline Casts NONE SEEN /LPF (0-2); Ketones Negative (Negative); Leukocyte Esterase Negative (Negative); Nitrite Negative (Negative); Ph 6.5 (4.6-8.0); Protein,Urine Dip Negative (Negative); RBC 0-2 /HPF (0-5); Specific Gravity >=1.030 (1.005-1.030); Urobilinogen 0.2 mg/dL (0.2); WBC 0-2 /HPF (0-5)
[2023-08-05 14:58] LABS: ADD URINE CULTURE? NO (NO)
[2023-08-05] MEDS ORDERED: Levofloxacin 500MG/100ML D5W 500 MG/100 ML BAG IV ONE (16:59)
[2023-08-05] MEDS: Levofloxacin 500MG/100ML D5W 500 MG/100 ML BAG IV STA (17:00)
[2023-08-05] MEDS ORDERED: solu-MEDROL ONE (18:07)
[2023-08-05] MEDS ORDERED: Sterile H2O 10 ml IJ ONE (18:07)
[2023-08-05] MEDS: solu-MEDROL 125 MG, Sterile H2O 10 ml 2 ML IV ONE (18:08)
[2023-08-05 18:13] VITALS: BP 110/62; PULSE 97; RESP 20; O2SAT 98
--- NOTE | 2023-08-05 21:12 | XRAY ---
Indication: Fever. Comparison: December 05, 2022 Portable chest demonstrates new minimal lingula subsegmental atelectasis/scarring. Remaining lungs clear. Heart not enlarged again with tortuous descending aorta. Bony thorax intact again with mild degenerative changes and incompletely visualized cervical fusion hardware. Impression: Nonacute chest with chronic features.
== END 2023-08-05 18:35 | disposition home or self-care (01) ==
LOC: ED 10:52
DX: I95.89 Other hypotension (principal); T46.5X5A Adverse effect of other antihypertensive drugs, initial encounter; M70.22 Olecranon bursitis, left elbow; E78.5 Hyperlipidemia, unspecified; I10 Essential (primary) hypertension; E11.42 Type 2 diabetes mellitus with diabetic polyneuropathy; Z79.01 Long term (current) use of anticoagulants; Z79.84 Long term (current) use of oral hypoglycemic drugs; Z79.899 Other long term (current) drug therapy
CPT/HCPCS: 0241U; 36000; 36415; 71045; 73200; 80053; 80162; 81001; 83605; 84484; 85025; 86308; 87040; 93005; 93041; 94760; 96365; 96374; 99285; J1956; J2919

== ENCOUNTER 2024-04-22 10:36 | Emergency (ER) | payer MEDICARE ==
--- NOTE | 2024-04-22 11:01 | ERPHSYRPT ---
- History of Present Illness Time Seen by Provider: 04/22/24 11:01 Source: patient Exam Limitations: no limitations Physician History: This is a 58-year-old white male patient of nurse practitioner Liban who arrives by private vehicle accompanied by his spouse secondary to dizzy spells and syncope with fall 3 times in the last week. One of the times he did hit his hea d per spouse report. He also has intermittent left eye vision changes. There is been no new medications. Comparison twelve-lead EKG 08/05/2023 shows a heart rate of 63 and rhythm of A-fib. QTc is 478. Patient has a history of atrial fibrillation on Eliquis, hypertension, hyperlipidemia, peripheral neuropathy, degenerative disc disease, osteoarthritis and irritable bowel syndrome as well as anxiety and depression. Patient is on beta-joão, digoxin and amiodarone to control his atrial fibrillation. Patient did take his medication this morning. Patient denies chest pain and he denies shortness of breath Timing/Duration: week(s) (Symptoms for at least a week), worse Severity: mild (Moderate) Character of Deficits: vision problems (Remittent) Deficits: falling (3 times in the last week) Baseline/Normal Cognition: alert oriented x 3 Current Cognition: alert oriented x 3 Baseline Gait: walks w/o assistance Associated Symptoms: other (Has fallen 3 times in the last week) Allergies/Adverse Reactions: sulfamethoxazole [From Bactrim] Allergy (Intermediate, Verified 04/22/24 11:30) Rash trimethoprim [From Bactrim] Allergy (Intermediate, Verified 04/22/24 11:30) Rash Sulfa (Sulfonamide Antibiotics) Adverse Reaction (Intermediate, Verified 04/22/24 11:30) Rash oxycodone Adverse Reaction (Mild, Verified 04/22/24 11:30) Home Medications: Ropinirole HCl [Requip] 1 mg PO BID 11/25/15 [History] Fenofibrate,Micronized 145 mg* [Tricor 145 MG] 145 mg PO DAILY 01/13/17 [History] Tamsulosin HCl 0.4 mg [Flomax 0.4 MG] 0.4 mg PO DAILY 01/13/17 [History] ALPRAZolam [Alprazolam] 0.5 mg PO HS 12/05/22 [History] Apixaban [Eliquis] 5 mg PO BID 12/05/22 [History] Celecoxib 200 mg PO DAILY 12/05/22 [History] Cetirizine HCl [All Day Allergy Relief] 10 mg PO DAILY 12/05/22 [History] Cholecalciferol (Vitamin D3) [Vitamin D] 4,000 iu PO DAILY 12/05/22 [History] Ergocalciferol (Vitamin D2) [Vitamin D2] 1 tab PO WEEKLY 12/05/22 [History] Famotidine 20 mg PO HS 12/05/22 [History] Rosuvastatin Calcium 10 mg PO HS 12/05/22 [History] Amiodarone HCl 200 mg [Cordarone 200 MG] 200 mg PO EVENING MEAL 08/05/23 [History] Digoxin 0.125 mg Tablet [Lanoxin 0.125MG TABLET] 0.125 mg PO DAILY 08/05/23 [History] Venlafaxine HCl 37.5 mg [Effexor 37.5 mg] 37.5 mg PO DAILY 08/05/23 [History] Albuterol Sulfate [Albuterol Sulfate Hfa] 2 puff PO Q4-6HPRN PRN 04/22/24 [History] Furosemide 40 mg [Lasix 40 MG] 40 mg PO DAILY PRN 04/22/24 [History] Hydrocodone/Acetaminophen [Hydrocodone-Acetamin 5-325 mg] 1 tab PO Q8H PRN PRN 04/22/24 [History] Magnesium Glycinate 400 mg PO DAILY 04/22/24 [History] Metaxalone 800 mg PO DAILY PRN 04/22/24 [History] Metoprolol Succinate 25 mg Xl* [Toprol-Xl 25MG Tablets] 25 mg PO BID 04/22/24 [History] Spironolactone 25 mg [Aldactone 25 MG] 25 mg PO DAILY 04/22/24 [History] lisinopriL [Zestril] 2.5 mg PO DAILY 04/22/24 [History] Hx Tetanus, Diphtheria Vaccination/Date Given: Yes Hx Influenza Vaccination/Date Given: No Hx Pneumococcal Vaccination/Date Given: No Travel Risk - Emerging Infectious Disease Are you exhibiting symptoms associated with any current EIDs: No Symptoms: Loss of taste or smell, Other (Please Comment) (Weakness,) - Review of Systems Constitutional: Weakness Eyes: No Symptoms Ears, Nose, & Throat: No Symptoms Respiratory: No Symptoms Cardiac: No Symptoms Abdominal/Gastrointestinal: No Symptoms Genitourinary Symptoms: No Symptoms Musculoskeletal: No Symptoms Skin: No Symptoms Neurological: Dizziness, Other (Syncopal episodes x 3 at home) Psychological: No Symptoms Endocrine: No Symptoms Hematologic/Lymphatic: No Symptoms Immunological/Allergic: No Symptoms All Other Systems: Reviewed and Negative - Past Medical History Pertinent Past Medical History: Yes Neurological History: Peripheral Neuropathy ENT History: No Pertinent History Cardiac History: Arrhythmia, High Cholesterol, Hypertension Respiratory History: Other, Pneumonia Endocrine Medical History: No Pertinent History Musculoskeletal History: Arthritis, Osteoarthritis, Degenerative Disk Disease GI Medical History: Irritable Bowel, Hemorrhoids, Gallbladder Disease History: Other Psycho-Social History: Depression, Anxiety Male Reproductive Disorders: Other Other Medical History: AMPUTATION OF LEFT FINGERS, C5 fx with C4,5,6 bone graph. restricted ureter with stent. hx Covid in 2019 - Past Surgical History Past Surgical History: Yes Neuro Surgical History: No Pertinent History Cardiac: No Pertinent History Respiratory: No Pertinent History Gastrointestinal: Cholecystectomy, Hernia Repair Genitourinary: Other Musculoskeletal: No Pertinent History, Orthopedic Surgery, Amputation Male Surgical History: Other Other Surgical History: neck surgery 1985 and 2000 C 4,5,6 bone graph, T1 bone shaving. Left finger amputation with mulitple skin graphs from left thigh to hand. Ureteral stent, lt knee replacement; right arm fractur repair with hardwa re Significant Family History: no pertinent family hx - Social History Smoking Status: Never smoker Exposure to second hand smoke: Yes Drug Use: none Patient Lives Alone: No - Social Determinants of Health Will the patient participate in the screening: Yes Do you worry about a steady place to live?: No In the past 12 months,have you had to go without utilities?: No Transportation Issues: No Has anyone in your support network made you feel unsafe?: No Have you or anyone in your house had to go without enough: No - Nursing Vital Signs Nursing Vital Signs: Initial Vital Signs Temperature 97.3 F 04/22/24 11:30 Pulse Rate 77 04/22/24 11:30 Respiratory Rate 18 04/22/24 11:30 Blood Pressure 146/111 04/22/24 11:30 O2 Sat by Pulse Oximetry 97 04/22/24 11:30 Pain Scale Pain Intensity 0 - [place] Coma Scale Best Eye Response (Nic): (4) open spontaneously Best Verbal Response ([place]): (5) oriented Best Motor Response ([place]): (6) obeys commands [place] Total: 15 - Physical Exam General Appearance: no apparent distress, alert, anxiety Eye Exam: bilateral eye: normal inspection, PERRL, EOMI Ears, Nose, Throat Exam: normal ENT inspection, moist mucous membranes Neck Exam: normal inspection, non-tender, supple, full range of motion Respiratory: normal breath sounds, lungs clear, airway intact, No chest tenderness, No respiratory distress Cardiovascular: regular rate/rhythm, normal heart sounds, normal peripheral pulses Gastrointestinal: soft, normal bowel sounds, No tenderness Rectal Exam: not done Back Exam: normal inspection, normal range of motion, No CVA tenderness, No vertebral tenderness Extremity Exam: normal inspection, normal range of motion, pelvis stable Mental Status: alert, oriented x 3, cooperative gate person Exam: normal hearing, normal speech, PERRL Coordination/Gait: normal finger to nose, normal cerebellar function Motor/Sensory: no motor deficit, no sensory deficit Skin Exam: normal color, warm, dry SpO2 Interpretation: normal O2 Delivery: Room Air - Course Nursing assessment & vital signs reviewed: Yes EKG Interpreted by Me: RATE (84), A-fib, NORMAL AXIS, NORMAL INTERVALS, NORMAL QRS, Other (QTc is 438. No acute ischemia on today's twelve-lead EKG.) Ordered Tests: Active Orders 24 hr Category Date Time Status EKG-ER Only STAT Care 04/22/24 12:02 Active IV Insertion STAT Care 04/22/24 12:02 Active Pulse Oximetry (ED) STAT Care 04/22/24 12:02 Active MRI BRAIN W/O CONTRAST [MRI] Stat Exams 04/22/24 12:03 Completed CBC W DIFF Stat Lab 04/22/24 12:00 Completed CMP Stat Lab 04/22/24 12:00 Completed MAGNESIUM Stat Lab 04/22/24 12:00 Completed PROTIME WITH INR Stat Lab 04/22/24 12:02 Completed TROPONIN Q4H Lab 04/22/24 12:00 Completed TROPONIN Q4H Lab 04/22/24 16:28 Received TROPONIN Q4H Lab 04/22/24 20:15 Ordered UA W/RFX UR CULTURE Stat Lab 04/22/24 14:40 Completed Medication Summary Generic Name Dose Route Start Last Admin Trade Name Freq PRN Reason Stop Dose Admin Sodium Chloride 1,000 mls @ 100 mls/hr 04/22/24 12:30 04/22/24 14:45 Sodium Chloride 0.9% 1000 Ml IV 05/22/24 12:29 Not Given .Q10H JENNIFER Discontinued Medications Generic Name Dose Route Start Last Admin Trade Name Freq PRN Reason Stop Dose Admin Hydromorphone HCl 1 mg 04/22/24 13:33 04/22/24 14:45 Hydromorphone 1 Mg/1ml Inj IV 04/22/24 13:34 Not Given STAT ONE Ondansetron HCl 4 mg 04/22/24 13:33 04/22/24 14:46 Ondansetron Hcl 4 Mg/2 Ml Vial IV 04/22/24 13:34 Not Given STAT ONE Lab/Rad Data: Laboratory Result Diagrams 04/22/24 12:00 04/22/24 12:00 Laboratory Results 04/22/24 04/22/24 04/22/24 Range/Units 14:40 13:30 12:16 WBC (4.23-9.07) x10^3/uL RBC (4.63-6.08) x10^6/uL Hgb (13.7-17.5) g/dL Hct (40.1-51.0) % MCV (79.0-92.2) fL MCH (25.7-32.2) pg MCHC (32.3-36.5) g/dL RDW (11.6-14.4) % Plt Count (163-337) x10^3/uL MPV (9.4-12.4) fL Gran % (34.0-67.9) % Immature Gran % (Auto) (0.001-0.429) % Nucleat RBC Rel Count (0.00-0.2) % Eos # (Auto) (0.04-0.54) x10^3/uL Immature Gran # (Auto) (0.001-0.031) x10^3u/L Absolute Lymphs (auto) (1.32-3.57) x10^3/uL Absolute Monos (auto) (0.30-0.82) x10^3/uL Absolute Nucleated RBC (0.00-0.012) x10^3u/L Lymphocytes % (21.8-53.1) % Monocytes % (5.3-12.2) % Eosinophils % (0.8-7.0) % Basophils % (0.2-1.2) % Absolute Granulocytes (1.78-5.38) x10^3/uL Basophils # (0.01-0.08) x10^3/uL PT (9.4-12.5) SECONDS INR (0.8-3.0) Sodium (135-145) mmol/L Potassium (3.5-5.1) mmol/L Chloride (98-107) mmol/L Carbon Dioxide (22-30) mmol/L Anion Gap (5-15) MEQ/L BUN (9-20) mg/dL Creatinine (0.66-1.25) mg/dL Estimated GFR ML/MIN Glucose (74-106) mg/dL Calcium (8.4-10.2) mg/dL Magnesium (1.6-2.3) mg/dL Total Bilirubin (0.2-1.3) mg/dL AST (17-59) U/L ALT (0-50) U/L Alkaline Phosphatase (38-126) U/L Troponin I (0.000-0.033) ng/mL Serum Total Protein (6.3-8.2) g/dL Albumin (3.5-5.0) g/dL Urine Color Dark Yellow (Yellow) Urine Appearance Clear (Clear) Urine pH 5.5 (4.6-8.0) Ur Specific [place] 1.025 (1.005-1.030) Urine Protein Negative (Negative) Urine Glucose (UA) Negative (Negative) mg/dL Urine Ketones Negative (Negative) Urine Blood Negative (Negative) Urine Nitrite Negative (Negative) Urine Bilirubin Negative (Negative) Urine Urobilinogen 0.2 (0.2) mg/dL Ur Leukocyte Esterase Negative (Negative) U Hyaline Cast (Auto) 3-5 A (0-2) /LPF Urine Microscopic RBC 0-2 (0-5) /HPF Urine Microscopic WBC 0-2 (0-5) /HPF Ur Epithelial Cells None Seen (None Seen) /HPF Urine Bacteria None Seen (None Seen) /HPF Urine Culture Reflexed NO (NO) Digoxin 1.0 (0.8-1.9) ng/mL Influenza Type A Ag NEGATIVE (NEGATIVE) Influenza Type B Ag NEGATIVE (NEGATIVE) RSV (PCR) NEGATIVE (NEGATIVE) SARS-CoV-2 (PCR) NEGATIVE (NEGATIVE) 04/22/24 04/22/24 04/22/24 Range/Units 12:02 12:00 12:00 WBC (4.23-9.07) x10^3/uL RBC (4.63-6.08) x10^6/uL Hgb (13.7-17.5) g/dL Hct (40.1-51.0) % MCV (79.0-92.2) fL MCH (25.7-32.2) pg MCHC (32.3-36.5) g/dL RDW (11.6-14.4) % Plt Count (163-337) x10^3/uL MPV (9.4-12.4) fL Gran % (34.0-67.9) % Immature Gran % (Auto) (0.001-0.429) % Nucleat RBC Rel Count (0.00-0.2) % Eos # (Auto) (0.04-0.54) x10^3/uL Immature Gran # (Auto) (0.001-0.031) x10^3u/L Absolute Lymphs (auto) (1.32-3.57) x10^3/uL Absolute Monos (auto) (0.30-0.82) x10^3/uL Absolute Nucleated RBC (0.00-0.012) x10^3u/L Lymphocytes % (21.8-53.1) % Monocytes % (5.3-12.2) % Eosinophils % (0.8-7.0) % Basophils % (0.2-1.2) % Absolute Granulocytes (1.78-5.38) x10^3/uL Basophils # (0.01-0.08) x10^3/uL PT 11.2 (9.4-12.5) SECONDS INR 1.03 (0.8-3.0) Sodium (135-145) mmol/L Potassium (3.5-5.1) mmol/L Chloride (98-107) mmol/L Carbon Dioxide (22-30) mmol/L Anion Gap (5-15) MEQ/L BUN (9-20) mg/dL Creatinine (0.66-1.25) mg/dL Estimated GFR ML/MIN Glucose (74-106) mg/dL Calcium (8.4-10.2) mg/dL Magnesium 2.3 (1.6-2.3) mg/dL Total Bilirubin (0.2-1.3) mg/dL AST (17-59) U/L ALT (0-50) U/L Alkaline Phosphatase (38-126) U/L Troponin I < 0.012 (0.000-0.033) ng/mL Serum Total Protein (6.3-8.2) g/dL Albumin (3.5-5.0) g/dL Urine Color (Yellow) Urine Appearance (Clear) Urine pH (4.6-8.0) Ur Specific [place] (1.005-1.030) Urine Protein (Negative) Urine Glucose (UA) (Negative) mg/dL Urine Ketones (Negative) Urine Blood (Negative) Urine Nitrite (Negative) Urine Bilirubin (Negative) Urine Urobilinogen (0.2) mg/dL Ur Leukocyte Esterase (Negative) U Hyaline Cast (Auto) (0-2) /LPF Urine Microscopic RBC (0-5) /HPF Urine Microscopic WBC (0-5) /HPF Ur Epithelial Cells (None Seen) /HPF Urine Bacteria (None Seen) /HPF Urine Culture Reflexed (NO) Digoxin (0.8-1.9) ng/mL Influenza Type A Ag (NEGATIVE) Influenza Type B Ag (NEGATIVE) RSV (PCR) (NEGATIVE) SARS-CoV-2 (PCR) (NEGATIVE) 04/22/24 04/22/24 Range/Units 12:00 12:00 WBC 8.7 (4.23-9.07) x10^3/uL RBC 5.96 (4.63-6.08) x10^6/uL Hgb 18.8 H (13.7-17.5) g/dL Hct 55.9 H (40.1-51.0) % MCV 93.8 H (79.0-92.2) fL MCH 31.5 (25.7-32.2) pg MCHC 33.6 (32.3-36.5) g/dL RDW 13.7 (11.6-14.4) % Plt Count 357 H (163-337) x10^3/uL MPV 9.5 (9.4-12.4) fL Gran % 69.4 H (34.0-67.9) % Immature Gran % (Auto) 1.5 H (0.001-0.429) % Nucleat RBC Rel Count 0.0 (0.00-0.2) % Eos # (Auto) 0.07 (0.04-0.54) x10^3/uL Immature Gran # (Auto) 0.13 H (0.001-0.031) x10^3u/L Absolute Lymphs (auto) 1.39 (1.32-3.57) x10^3/uL Absolute Monos (auto) 0.93 H (0.30-0.82) x10^3/uL Absolute Nucleated RBC 0.00 (0.00-0.012) x10^3u/L Lymphocytes % 16.0 L (21.8-53.1) % Monocytes % 10.7 (5.3-12.2) % Eosinophils % 0.8 (0.8-7.0) % Basophils % 1.6 H (0.2-1.2) % Absolute Granulocytes 6.01 H (1.78-5.38) x10^3/uL Basophils # 0.14 H (0.01-0.08) x10^3/uL PT (9.4-12.5) SECONDS INR (0.8-3.0) Sodium 138 (135-145) mmol/L Potassium 5.0 (3.5-5.1) mmol/L Chloride 103 (98-107) mmol/L Carbon Dioxide 23 (22-30) mmol/L Anion Gap 17.0 H (5-15) MEQ/L BUN 34 H (9-20) mg/dL Creatinine 1.56 H (0.66-1.25) mg/dL Estimated GFR 50.5 ML/MIN Glucose 96 (74-106) mg/dL Calcium 9.9 (8.4-10.2) mg/dL Magnesium (1.6-2.3) mg/dL Total Bilirubin 0.60 (0.2-1.3) mg/dL AST 56 (17-59) U/L ALT 48 (0-50) U/L Alkaline Phosphatase 61 (38-126) U/L Troponin I (0.000-0.033) ng/mL Serum Total Protein 7.5 (6.3-8.2) g/dL Albumin 4.8 (3.5-5.0) g/dL Urine Color (Yellow) Urine Appearance (Clear) Urine pH (4.6-8.0) Ur Specific [place] (1.005-1.030) Urine Protein (Negative) Urine Glucose (UA) (Negative) mg/dL Urine Ketones (Negative) Urine Blood (Negative) Urine Nitrite (Negative) Urine Bilirubin (Negative) Urine Urobilinogen (0.2) mg/dL Ur Leukocyte Esterase (Negative) U Hyaline Cast (Auto) (0-2) /LPF Urine Microscopic RBC (0-5) /HPF Urine Microscopic WBC (0-5) /HPF Ur Epithelial Cells (None Seen) /HPF Urine Bacteria (None Seen) /HPF Urine Culture Reflexed (NO) Digoxin (0.8-1.9) ng/mL Influenza Type A Ag (NEGATIVE) Influenza Type B Ag (NEGATIVE) RSV (PCR) (NEGATIVE) SARS-CoV-2 (PCR) (NEGATIVE) - Progress Progress: improved, re-examined Progress Note: 04/22/24 13:28 My medical decision making and the assignment of moderate complexity to this patient's medical issue today is based on review of past medical history, review the patient's medication list, review the patient drug allergy list, history present illness and physical findings on examination. The workup in this patient includes placement of intravenous line, infusion of normal saline solution, MRI of the brain without contrast, twelve-lead EKG, troponin level, viral swabs, urinalysis, magnesium level, CBC and CMP. Differential diagnosis includes but is not limited to dehydration, urinary tract infection, anemia, acute intracranial abnormality, arrhythmia, electrolyte abnormalities 04/22/24 16:48 I interpreted the patient's laboratory data results. Based on the laboratory data results, the patient has no acute, emergent medical issue. The MRI of the brain without contrast was interpreted by the radiologist and I reviewed the impression. The impression states atrophy and degenerative micro ischemia within normal limits. Remaining MRI brain without contrast is negative. Counseled pt/family regarding: lab results, diagnosis, need for follow-up, rad results Medical Desision Making - Independent Historian Additional History obtained from: Spouse - Diagnostic Testing Diagnostic test were ordered, analyzed, and reviewed by me: Yes Radiological Interpretation: Reviewed by me, Teleradiologist Report - Risk of complications Low Risk: Low risk of morbidity from additional dx testing or treatment - Departure Departure Disposition: Home Clinical Impression: Syncopal episodes Condition: Stable Critical Care Time: No Referrals: AMA MORAN NP [Primary Care Provider] - Follow up/PCP as directed Additional Instructions: Drink plenty of fluids. Take your medications as prescribed. Call your compensation business partner and neurologist as well as your primary care provider tomorrow, 04/23/2024, to make arrangements for follow-up appointment for further evaluation and management.
[2024-04-22 11:58] VITALS: TEMP 97.3
[2024-04-22 12:08] LABS: Absolute Neutrophil Ct (ANC) 6.01 x10^3/uL (1.78-5.38); BASOPHIL % 1.6 % (0.2-1.2); Basophil (Absolute #) 0.14 x10^3/uL (0.01-0.08); Eosinophil % 0.8 % (0.8-7.0); Eosinophil (Absolute #) 0.07 x10^3/uL (0.04-0.54); Hematocrit 55.9 % (40.1-51.0); Hemoglobin 18.8 g/dL (13.7-17.5); IMMATURE GRAN # 0.13 x10^3u/L (0.001-0.031); IMMATURE GRAN % 1.5 % (0.001-0.429); Lymphocyte (Absolute #) 1.39 x10^3/uL (1.32-3.57); Mean Cell Volume 93.8 fL (79.0-92.2); Mean Corpuscular Hemoglobin 31.5 pg (25.7-32.2); Mean Corpuscular Hgb Concent. 33.6 g/dL (32.3-36.5); Mean Platelet Volume 9.5 fL (9.4-12.4); Monocyte (Absolute #) 0.93 x10^3/uL (0.30-0.82); Monocytes % 10.7 % (5.3-12.2); Neutrophil % 69.4 % (34.0-67.9); Platelet Count 357 x10^3/uL (163-337); Red Blood Count 5.96 x10^6/uL (4.63-6.08); Red Cell Distribution Width 13.7 % (11.6-14.4); White Blood Count 8.7 x10^3/uL (4.23-9.07)
[2024-04-22 12:45] LABS: INR 1.03 (0.8-3.0); PROTIME 11.2 SECONDS (9.4-12.5)
[2024-04-22 12:59] LABS: ALBUMIN 4.8 g/dL (3.5-5.0); BILIRUBIN,TOTAL 0.6 mg/dL (0.2-1.3); Calcium 9.9 mg/dL (8.4-10.2); Creatinine 1 1.56 mg/dL (0.66-1.25); EST GLOMERULAR FILTRATION RATE 50.5 ML/MIN; Total Protein 7.5 g/dL (6.3-8.2)
[2024-04-22 13:26] LABS: INFLUENZA A NEGATIVE (NEGATIVE); INFLUENZA B NEGATIVE (NEGATIVE); RESPIRATORY SYNCTIAL VIRUS NEGATIVE (NEGATIVE); SARS-CoV-2 Xpert Express NEGATIVE (NEGATIVE)
[2024-04-22 14:41] VITALS: O2SAT 96
[2024-04-22] MEDS: Hydromorphone 1 mg/ml Injection IV ONE (14:45)
[2024-04-22] MEDS: Sodium Chloride 0.9% 1000 ML 1,000 ML IV SCH (14:45)
[2024-04-22] MEDS: Zofran 4 MG/2 ML VIAL IV ONE (14:46)
[2024-04-22 14:52] LABS: Appearance Clear (Clear); Bacteria None Seen /HPF (None Seen); Bilirubin Negative (Negative); Blood Negative (Negative); Epithelial Cells None Seen /HPF (None Seen); Glucose, Urine Negative (Negative); Ketones Negative (Negative); Leukocyte Esterase Negative (Negative); Nitrite Negative (Negative); Ph 5.5 (4.6-8.0); Protein,Urine Dip Negative (Negative); RBC 0-2 /HPF (0-5); Specific Gravity 1.025 (1.005-1.030); Urobilinogen 0.2 mg/dL (0.2); WBC 0-2 /HPF (0-5)
--- NOTE | 2024-04-22 16:46 | XRAY ---
Indication: Syncope. Head injury. No head CT performed by emergency room. Sagittal, coronal, and axial MRI brain performed without contrast using T1, T2, FLAIR, diffusion, and ADC sequences. Comparison: None Age-appropriate global atrophy and minimal periventricular degenerative micro-ischemia bilaterally. No acute intracranial hemorrhage, abnormal extra-axial fluid collection, or mass effect. Diffusion images negative for restricted signal. Fourth ventricle is midline without hydrocephalus. 7/8 cranial nerve complex bilaterally symmetric. Normal flow void signal within the major intracerebral circulation. Normal appearing craniocervical junction and sella turcica. Visualized paranasal sinuses are clear. Impression: Atrophy and degenerative micro-ischemia within normal limits. Remaining MRI brain without contrast exam is negative.
[2024-04-22 17:51] VITALS: BP 127/93; PULSE 80; RESP 18
== END 2024-04-22 17:51 | disposition home or self-care (01) ==
LOC: ED 10:36
DX: R55 Syncope and collapse (principal); H53.9 Unspecified visual disturbance; I10 Essential (primary) hypertension; E78.5 Hyperlipidemia, unspecified; Z79.01 Long term (current) use of anticoagulants; Z79.891 Long term (current) use of opiate analgesic; Z79.899 Other long term (current) drug therapy
CPT/HCPCS: 0241U; 36415; 70551; 80053; 80162; 81001; 83735; 84484; 85025; 85610; 93005; 94760; 99285; 99284